=== PATIENT | male | born 1945 | race Caucasian/White ===

== ENCOUNTER 2016-11-21 15:38 | Inpatient (IN) ==
--- NOTE | 2016-11-21 16:03 | Emergency Department Note ---
Disposition Clinical Impression: Renal failure, Hyperglycemia, Hyperkalemia Leukocytosis Qualifiers: Leukocytosis type: unspecified Qualified Code(s): D72.829 - Elevated white blood cell count, unspecified Disposition: Admitted As Inpatient Condition: Fair Time of Disposition: 19:04 General Adult HPI - General Chief complaint: ED Fall Stated complaint: fall Time Seen by Provider: 11/21/16 15:41 Source: patient, EMS Mode of arrival: EMS Limitations: no limitations Nursing Notes Reviewed: Yes Vital Signs Reviewed: Yes - History of Present Illness HPI Narrative: 70-year-old male presents by EMS for fall at home yesterday and inability to walk. He states that he was using a railing and toilet to walk in his bathroom yesterday when his left knee gave out and he fell onto it. He fell around noon yesterday and was on the ground for an hour before EMS came to help him get up. He denies any head injury or loss of consciousness. He states that the pain in his knee has worsened to the point where he cannot walk even with a walker and assistance from his roommates. He denies any other recent illness or medication change. He denies any head injury or loss of consciousness or neck pain. He denies any confusion, fever, headache, blurred vision, cough or shortness of breath, chest pain, edema over his baseline, nausea or vomiting. He does admit to loose stools for the past 24 hours. He denies any recent antibiotic use. He admits to chronic neuropathy which is at its baseline. Pain Scale: 6 - Related Data Home Medications Medication Instructions Recorded Confirmed Aspirin Enteric Coated [Aspirin EC] 81 mg PO DAILY 11/21/16 11/21/16 Atorvastatin Calcium [Lipitor] 20 mg PO HS 11/21/16 11/21/16 Cholecalciferol (D-3) [Vitamin D] 2,000 unit PO DAILY 11/21/16 11/21/16 Gabapentin [Neurontin] 600 mg PO TID 11/21/16 11/21/16 Glimepiride [Amaryl] 4 mg PO BID 11/21/16 11/21/16 Insulin DETEMIR [Levemir] 20 unit SQ HS 11/21/16 11/21/16 Lisinopril [Zestril] 20 mg PO BID 11/21/16 11/21/16 Multivitamin [Multi-Day Vitamins] 1 each PO DAILY 11/21/16 11/21/16 Nystatin POWDER [Nystop] 1 appl TP TID 11/21/16 11/21/16 Omeprazole [PriLOSEC] 20 mg PO DAILY 11/21/16 11/21/16 Oxycodone HCl [Roxicodone 30 MG 30 mg PO Q6HR PRN 11/21/16 11/21/16 Immed Release] Potassium Chloride [K-Tab ER] 20 meq PO DAILY 11/21/16 11/21/16 Sertraline [Zoloft] 100 mg PO DAILY 11/21/16 11/21/16 amLODIPine [Norvasc] 5 mg PO DAILY 11/21/16 11/21/16 hydroCHLOROthiazide 12.5 mg PO DAILY 11/21/16 11/21/16 [Hydrochlorothiazide] Allergies Allergy/AdvReac Type Severity Reaction Status Date / Time morphine Allergy Hallucinati Verified 11/21/16 16:26 ng All systems ED: reviewed and negative except as stated. Past Medical History - Past Medical History Attestation: Yes The following information was validated with the patient. Source: patient Medical history: Reports: diabetes, hyperlipidemia, hypertension, renal disease Psychiatric history: Reports: no psych history - Social History Smoking Status: Never smoker Smokeless Tobacco Status: No Alcohol use: Reports: none Drug use: Reports: none Physical Exam - Head Head exam: atraumatic, normocephalic, normal inspection - Eye Eye exam: Present: normal appearance, PERRL, EOMI - ENT ENT exam: normal exam, normal oropharynx, mucous membranes moist - Neck Neck exam: Present: normal inspection, full ROM, trachea midline - Chest Chest inspection: Present: normal inspection, symmetric chest wall rise - Respiratory Respiratory exam: Clear to auscultation bilaterally without wheezes rales or rhonchi Cardiovascular Cardiovascular exam: Present: regular rate, normal rhythm, normal heart sounds - Abdominal Exam Abdominal exam: Present: soft, Non-Tender. Absent: tenderness, distention, guarding, rebound, rigidity - Extremities Exam Chronic venous stasis changes bilaterally. There is tenderness in the left knee diffusely. Left ankle and hip are normal. - Neurological Exam Neurological exam: Present: alert, oriented X3, CN II-XII intact - Psychiatric Psychiatric exam: Present: normal affect, normal mood - Skin Skin exam: Present: warm, dry, intact. - General Limitations: no limitations General appearance: alert Course - Reevaluation(s) Reevaluation #1: Leukocytosis to 23 noted. The remainder of labs. Patient was undressed and straight catheter urine was obtained. Patient was rolled and back exam is normal with no sacral decubitus ulcer. There is significant candidiasis due to the patient's urinary incontinence, but no definite cellulitis. Patient states that this is at baseline. Time: 17:29 Reevaluation #2: The patient had leukocytosis without any signs of infection on the chest x-ray or urinalysis the obtain fluid from the left knee to send for culture. He states that the knee has been bothering him for the last month or so even prior to the fall. There was a moderate effusion on x-ray seen. A small amount of bloody aspirate was obtained from the joint on the aspiration. This is likely a traumatic effusion. It was sent for culture. To obtain knee aspirate the knee was prepped and draped in sterile condition the skin was anesthetized with 2 mL's of 2% lidocaine without epinephrine. 21-gauge needle was used to access the joint space and a small amount of bloody fluid was obtained. Patient tolerated the procedure well without competitions. Time: 18:44 Reevaluation #3: Awaiting callback from the hospitalist for admission. Patient's creatinine is 2.5. We do not have any old lab evaluation to know if this is new. Initial glucose is 650. Accu-Chek is ordered. Patient is receiving IV fluids and IV insulin. Time: 19:06 - Consultations Consultation #1: Patient accepted by Dr. Botello with hospitalist service. He request insulin drip started prior to admission. This is ordered. Blood sugar improved to 471 at this time. Time: 19:18 Vital Signs Temperature 98.9 F 11/21/16 15:40 Pulse Rate 101 11/21/16 15:40 Respiratory Rate 18 11/21/16 15:40 Blood Pressure 116/53 11/21/16 15:40 O2 Sat by Pulse Oximetry 98 11/21/16 15:40 Temperature 98.8 F 11/21/16 23:28 Pulse Rate 97 11/21/16 23:28 Respiratory Rate 18 11/21/16 23:28 Blood Pressure 114/70 11/21/16 23:28 O2 Sat by Pulse Oximetry 95 11/21/16 23:28 Oxygen Delivery Oxygen Delivery Room Air Medical Decision Making - Lab Data Result diagrams: 11/21/16 16:52 11/21/16 16:52 Lab Results 11/21/16 11/21/16 11/21/16 Range/Units 16:52 16:52 16:52 WBC 22.9 H (4.3-11.1) K/mcL RBC 4.24 (4.19-5.50) M/mcL Hgb 11.8 L (12.9-16.9) g/dL Hct 35.3 L (37.5-50.1) % MCV 83.3 (83.0-100.0) fL MCH 27.8 L (28.0-33.3) pg MCHC 33.4 (31.6-35.5) g/dL RDW 13.9 (11.5-14.5) % Plt Count 187 (140-400) K/mcL MPV 9.3 L (9.4-12.4) fL Immature Gran % 0.7 (0-4) % Seg Neutrophils % 89.9 % Lymphocytes % 2.8 % Monocytes % 6.6 % Eosinophils % 0.0 % Basophils % 0.0 % Neutrophils # 20.6 H (1.6-8.9) K/mcL Lymphocytes # 0.7 (0.6-4.6) K/mcL Monocytes # 1.5 H (0.0-1.3) K/mcL Eosinophils # 0.0 (0.0-0.6) K/mcL Basophils # 0.0 (0.0-0.2) K/mcL VBG pH (7.32-7.42) pH Units VBG pCO2 (41-51) mmHg VBG pO2 (25-40) mmHg VBG HCO3 (21-27) mEq/L Sodium (136-145) mEq/L Potassium (3.5-4.5) mEq/L Chloride (98-109) mEq/L Carbon Dioxide (19-29) mEq/L BUN (8-26) mg/dL Creatinine (0.72-1.25) mg/dL Est GFR ( Amer) (> 60) Est GFR (Non-Af Amer) (> 60) BUN/Creatinine Ratio (6-26) Glucose (70-99) mg/dL Calculated Osmolality (280-300) Calcium (8.6-10.8) mg/dL Creatine Kinase (30-200) Units/L Troponin I 0.01 (0-0.03) ng/mL B-Natriuretic Peptide 57 (0-100) pg/mL Beta-Hydroxybutyric Acd (0.02-0.27) mmol/L Urine Color (Yellow) Urine Clarity (Clear) Urine pH (5.0-8.0) pH Units Ur Specific Spencer (1.010-1.025) Urine Protein (Neg-Trace) mg/dL Urine Glucose (UA) (Normal) mg/dL Urine Ketones (Negative) mg/dL Urine Blood (Negative) Urine Nitrite (Negative) Urine Bilirubin (Negative) Urine Urobilinogen (Normal) mg/dL Ur Leukocyte Esterase (Negative) Urine Microscopic RBC (0-3) per hpf Urine Microscopic WBC (0-3) per hpf Ur Squamous Epith Cells (None-Few) per lpf Urine Bacteria (None-Few) per hpf Hyaline Casts (None-Few) per lpf Urine Yeast (None Seen) per hpf Ur Culture Indicated? (NO) 11/21/16 11/21/16 11/21/16 Range/Units 16:52 16:52 17:30 WBC (4.3-11.1) K/mcL RBC (4.19-5.50) M/mcL Hgb (12.9-16.9) g/dL Hct (37.5-50.1) % MCV (83.0-100.0) fL MCH (28.0-33.3) pg MCHC (31.6-35.5) g/dL RDW (11.5-14.5) % Plt Count (140-400) K/mcL MPV (9.4-12.4) fL Immature Gran % (0-4) % Seg Neutrophils % % Lymphocytes % % Monocytes % % Eosinophils % % Basophils % % Neutrophils # (1.6-8.9) K/mcL Lymphocytes # (0.6-4.6) K/mcL Monocytes # (0.0-1.3) K/mcL Eosinophils # (0.0-0.6) K/mcL Basophils # (0.0-0.2) K/mcL VBG pH (7.32-7.42) pH Units VBG pCO2 (41-51) mmHg VBG pO2 (25-40) mmHg VBG HCO3 (21-27) mEq/L Sodium 128 L (136-145) mEq/L Potassium 5.5 H (3.5-4.5) mEq/L Chloride 95 L (98-109) mEq/L Carbon Dioxide 19 (19-29) mEq/L BUN 51 H (8-26) mg/dL Creatinine 2.48 H (0.72-1.25) mg/dL Est GFR ( Amer) 31 L (> 60) Est GFR (Non-Af Amer) 26 L (> 60) BUN/Creatinine Ratio 21 (6-26) Glucose 647 H* (70-99) mg/dL Calculated Osmolality 310 H (280-300) Calcium 9.1 (8.6-10.8) mg/dL Creatine Kinase 685 H (30-200) Units/L Troponin I (0-0.03) ng/mL B-Natriuretic Peptide (0-100) pg/mL Beta-Hydroxybutyric Acd > 2.00 H (0.02-0.27) mmol/L Urine Color Yellow (Yellow) Urine Clarity Cloudy A (Clear) Urine pH 5.0 (5.0-8.0) pH Units Ur Specific Spencer 1.026 H (1.010-1.025) Urine Protein 30 H (Neg-Trace) mg/dL Urine Glucose (UA) >=1000 H (Normal) mg/dL Urine Ketones 15 H (Negative) mg/dL Urine Blood Large H (Negative) Urine Nitrite Negative (Negative) Urine Bilirubin Negative (Negative) Urine Urobilinogen Normal (Normal) mg/dL Ur Leukocyte Esterase Trace H (Negative) Urine Microscopic RBC 5-15 H (0-3) per hpf Urine Microscopic WBC 5-15 H (0-3) per hpf Ur Squamous Epith Cells Many H (None-Few) per lpf Urine Bacteria None Seen (None-Few) per hpf Hyaline Casts Few (None-Few) per lpf Urine Yeast Few H (None Seen) per hpf Ur Culture Indicated? YES A (NO) 11/21/16 Range/Units 18:03 WBC (4.3-11.1) K/mcL RBC (4.19-5.50) M/mcL Hgb (12.9-16.9) g/dL Hct (37.5-50.1) % MCV (83.0-100.0) fL MCH (28.0-33.3) pg MCHC (31.6-35.5) g/dL RDW (11.5-14.5) % Plt Count (140-400) K/mcL MPV (9.4-12.4) fL Immature Gran % (0-4) % Seg Neutrophils % % Lymphocytes % % Monocytes % % Eosinophils % % Basophils % % Neutrophils # (1.6-8.9) K/mcL Lymphocytes # (0.6-4.6) K/mcL Monocytes # (0.0-1.3) K/mcL Eosinophils # (0.0-0.6) K/mcL Basophils # (0.0-0.2) K/mcL VBG pH 7.37 (7.32-7.42) pH Units VBG pCO2 47 (41-51) mmHg VBG pO2 29 (25-40) mmHg VBG HCO3 27.2 H (21-27) mEq/L Sodium (136-145) mEq/L Potassium (3.5-4.5) mEq/L Chloride (98-109) mEq/L Carbon Dioxide (19-29) mEq/L BUN (8-26) mg/dL Creatinine (0.72-1.25) mg/dL Est GFR ( Amer) (> 60) Est GFR (Non-Af Amer) (> 60) BUN/Creatinine Ratio (6-26) Glucose (70-99) mg/dL Calculated Osmolality (280-300) Calcium (8.6-10.8) mg/dL Creatine Kinase (30-200) Units/L Troponin I (0-0.03) ng/mL B-Natriuretic Peptide (0-100) pg/mL Beta-Hydroxybutyric Acd (0.02-0.27) mmol/L Urine Color (Yellow) Urine Clarity (Clear) Urine pH (5.0-8.0) pH Units Ur Specific Spencer (1.010-1.025) Urine Protein (Neg-Trace) mg/dL Urine Glucose (UA) (Normal) mg/dL Urine Ketones (Negative) mg/dL Urine Blood (Negative) Urine Nitrite (Negative) Urine Bilirubin (Negative) Urine Urobilinogen (Normal) mg/dL Ur Leukocyte Esterase (Negative) Urine Microscopic RBC (0-3) per hpf Urine Microscopic WBC (0-3) per hpf Ur Squamous Epith Cells (None-Few) per lpf Urine Bacteria (None-Few) per hpf Hyaline Casts (None-Few) per lpf Urine Yeast (None Seen) per hpf Ur Culture Indicated? (NO) - EKG Data EKG #1 EKG attestation: Yes I reviewed and interpreted this EKG. EKG results narrative: EKG shows normal sinus rhythm at 97 with normal axis and intervals. No ST elevation or depression. No pathologic Q waves. This is a normal EKG. No old EKG available this time. Attestation Statement - Attestation Attestation: I, Jarrell Cadet, examined this patient and my medical decision-making was reviewed with the [employer] MACHINIST/PA/Advanced Practice Nurse/Resident Physician. I agree with the documented findings, disposition and treatment plan as described except to the extent set forth below. 70-year-old male presents after a fall at home. Patient states he fell yesterday after ambulating out of the bathroom. Denies hitting his head or having loss of consciousness. He states his leg gave out on him, causing him to fall on the left knee. Patient has a history of chronic left knee pain which has been exacerbated after the injury. Patient has been unable to ambulate since that time. Patient emphatically denies hitting his head, he does not have abrasions or other evidence of injury to the head. Laboratory evaluation the patient has a significantly elevated glucose level and has not been taking his diabetic medications as prescribed. He has an anion gap of 14 with elevated ketones in his blood. Patient also has an elevation of his creatinine we do not have a previous one to compare to. Aspiration, performed by the resident after verbal consent obtained, of the left knee will be sent for culture. Patient will be admitted to the hospital for further evaluation of his left knee pain as well as his hyperglycemia and acute renal failure.
[2016-11-21 17:03] LABS: Hematocrit 35.3 % (37.5-50.1); Hemoglobin 11.8 g/dL (12.9-16.9); Immature Granulocytes % 0.7 % (0-4); Lymphocytes # 0.7 K/mcL (0.6-4.6); Lymphocytes % 2.8 %; Mean Corpuscular HGB Conc 33.4 g/dL (31.6-35.5); Mean Corpuscular Hemoglobin 27.8 pg (28.0-33.3); Mean Corpuscular Volume 83.3 fL (83.0-100.0); Mean Platelet Volume 9.3 fL (9.4-12.4); Monocytes # 1.5 K/mcL (0.0-1.3); Monocytes % 6.6 %; Neutrophils # 20.6 K/mcL (1.6-8.9); Platelet Count 187 K/mcL (140-400); Red Blood Count 4.24 M/mcL (4.19-5.50); Red Cell Distribution Width 13.9 % (11.5-14.5); Segmented Neutrophils % 89.9 %
[2016-11-21 17:18] LABS: Calcium 9.1 mg/dL (8.6-10.8); Potassium 5.5 mEq/L (3.5-4.5)
[2016-11-21] MEDS ORDERED: 0.9 % Sodium Chloride 1,000 ML IVC ONE ×2 (17:30→19:04)
[2016-11-21 17:36] LABS: Bilirubin,Urine Negative (Negative); Blood,Urine Large (Negative); Clarity,Urine Cloudy (Clear); Color,Urine Yellow (Yellow); Glucose,Urine (UA) >=1000 mg/dL (Normal); Ketones,Urine 15 mg/dL (Negative); Leukocyte Esterase,Urine Trace (Negative); Nitrite,Urine Negative (Negative); Protein,Urine 30 mg/dL (Neg-Trace); Specific Gravity,Urine 1.026 (1.010-1.025); Urobilinogen,Urine Normal (Normal)
[2016-11-21 17:38] LABS: Bacteria,Urine None Seen per hpf (None-Few); Hyaline Casts,Urine Few per lpf (None-Few); Squamous Epithelial Cell,Urine Many per lpf (None-Few)
[2016-11-21 18:15] LABS: Yeast,Urine Few per hpf (None Seen)
[2016-11-21] MEDS ORDERED: Lidocaine -MPF 2% 5 ML VIAL ONE (18:20)
[2016-11-21] MEDS ORDERED: Lidocaine -MPF 2% 5 ML VIAL INFILT ONE (18:44)
[2016-11-21] MEDS ORDERED: Insulin Human Regular 10 UNIT in 0.9 % Sodium Chloride 10 ML IV ONE (18:46)
[2016-11-21 19:05] LABS: VBG HCO3 27.2 mEq/L (21-27); VBG PH 7.37 pH Units (7.32-7.42)
[2016-11-21] MEDS ORDERED: *HR* Dextrose 50 % in Water (Syg) 50 ML SYRINGE IVP PRN (19:15)
[2016-11-21] MEDS ORDERED: Insulin Human Regular 100 UNIT in 0.9 % Sodium Chloride 100 ML IVC SCH (19:15)
[2016-11-21] MEDS ORDERED: 0.9 % Sodium Chloride 1,000 ML ONE (21:28)
--- NOTE | 2016-11-21 23:56 | Internal Med History&Physical ---
Date of Encounter: 11/22/16 Time of Encounter: 23:56 Assessment and Plan (1) Hyperosmolality syndrome Current visit: Yes Status: Acute Patient's blood sugar on presentation was 647. He has history of type 2 diabetes sodium was 128 potassium 5.5 anion gap 14 . HHS is secondary to unknown infectious source leukocytosis 23 His blood gas pH 7.37. Beta hydroxinate 2. Patient does not appear to be acidotic patient was given 10 units of insulin IV and started on insulin drip culture has come down to 147. We will continue to monitor blood sugars every hour and titrate. 2 we will continue to monitor electrolytes every 4 hours 3 continue IV fluids 4 monitor intake and output (2) Leukocytosis Current visit: Yes Status: Acute 1 WBC 22.9 unsure of infectious source patient, urine and CXR clear has been experiencing some loose stool will obtain stool sample 2 monitor CBC 3 joint aspirate sent for culture awaiting results Qualifiers: Leukocytosis type: unspecified Qualified Code(s): D72.829 - Elevated white blood cell count, unspecified (3) Acute on chronic kidney failure Current visit: Yes Status: Acute Patient's creatinine 2. 4 AM unsure of what the baseline is. Patient appears to have history C KD stage III. We will continue to monitor creatinine 2 continue IV fluids 3 monitor intake and output daily weight (4) Hyperkalemia Current visit: Yes Status: Acute 1 potassium is 5.5- continue with IV fluids and insulin monitor chemistry every 4 hours 2 . Cardiac Monitoring (5) DVT prophylaxis Current visit: Yes Status: Acute 1 heparin Internal Medicine - H&P: HPI Chief complaint: Knee pain Admitted From: Emergency Dept Plans for Post Hospital Care: Home History of present illness: Mr. Arceo is a 70 year old male has history of COPD diabetes hypertension DJD OA. Patient had a fall at home yesterday when he was attempting to go to his bathroom. States his left knee gave out and he fell onto it. He fell around noon yesterday was on the ground for about an hour before EMS came to,. She denied any head injury or loss of consciousness. He states that today the pain in his knee is worse to the point that he is unable to walk with a walker or assistance. He states that he has been his normal state of health prior to this incident. He does admit to loose stools which she states has been going on for approximately one month. He denies any fevers nausea vomiting abdominal pain chest pain or shortness of breath. Denies any recent antibiotic use. Patient was brought to the ER for evaluation. According to the records lab work did reveal some leukocytosis with white count of 23. He also had elevated blood sugar at 647 creatinine was 2.4 potassium 5.5 bicarbonate was 19 sodium was 128 anion gap is 14. Chest x-ray with no acute process urinalysis no UTI. Left knee was x-rayed which revealed a moderate effusion , knee joint was aspirated and fluid was sent for culture He has been admitted for further workup and evaluation. Presently patient complains of knee pain besides any chest pain or short of breath. His lung sounds are clear heart sounds are regular S1 and S2 with no rubs, murmurs noted. Left knee is tender to touch pedal pulses present bilaterally brisk capillary refill. Recheck of his blood sugar was 147. He has hemodynamics stable at this time. I reviewed this case with who agrees with plan Past Med Surg Social Fam HX - Past Medical History Medical history: diabetes, hyperlipidemia, hypertension, renal disease Psychiatric history: no psych history - Social History Smoking Status: Never smoker Smokeless Tobacco Status: No Alcohol use: none Drug use: none - Family History Mother Living Status: Hx Family Endocrine Disorder: Yes (diabetes) Internal Medicine - H&P: Meds Aspirin Enteric Coated [Aspirin EC] 81 mg PO DAILY 11/21/16 [History] Atorvastatin Calcium [Lipitor] 20 mg PO HS 11/21/16 [History] Cholecalciferol (D-3) [Vitamin D] 2,000 unit PO DAILY 11/21/16 [History] Gabapentin [Neurontin] 600 mg PO TID 11/21/16 [History] Glimepiride [Amaryl] 4 mg PO BID 11/21/16 [History] Insulin DETEMIR [Levemir] 20 unit SQ HS 11/21/16 [History] Lisinopril [Zestril] 20 mg PO BID 11/21/16 [History] Multivitamin [Multi-Day Vitamins] 1 each PO DAILY 11/21/16 [History] Nystatin POWDER [Nystop] 1 appl TP TID 11/21/16 [History] Omeprazole [PriLOSEC] 20 mg PO DAILY 11/21/16 [History] Oxycodone HCl [Roxicodone 30 MG Immed Release] 30 mg PO Q6HR PRN 11/21/16 [ History] Potassium Chloride [K-Tab ER] 20 meq PO DAILY 11/21/16 [History] Sertraline [Zoloft] 100 mg PO DAILY 11/21/16 [History] amLODIPine [Norvasc] 5 mg PO DAILY 11/21/16 [History] hydroCHLOROthiazide [Hydrochlorothiazide] 12.5 mg PO DAILY 11/21/16 [History] Allergies morphine Allergy (Verified 11/21/16 16:26) Hallucinating All Systems PM: A 10-system review of systems was performed and is negative for pertinent findings except as documented above in the HPI. - Constitutional Constitutional: falls, no chills, no fever(s), no night sweats - EENT Eyes: no change in vision, no discharge, no pain, no photophobia Nose, mouth and throat: no dysphagia, no nasal discharge, no neck pain, no sore throat - Cardiovascular Cardiovascular ROS IM: no chest pain, no diaphoresis, no dyspnea, no lightheadedness, no palpitations, no syncope - Respiratory Respiratory: no cough, no dyspnea, no wheezing, no excessive phlegm production - Gastrointestinal Gastrointestinal: no abdominal pain, no diarrhea, no hematemesis, no hematochezia, no melena, no nausea, no vomiting - Musculoskeletal Musculoskeletal ROS IM: arthralgias, joint swelling - Integumentary Integumentary IM: no rash, no unusual bruising - Neurological Neurological ROS: no confusion, no convulsions, no focal weakness, no numbness, no tingling, no tremor(s) - Hematologic/Lymphatic Hematologic/Lymphatic: no easy bruising - Constitutional Vitals: Temp Pulse Resp BP Pulse Ox 98.8 F 97 18 114/70 95 11/21/16 23:28 11/21/16 23:28 11/21/16 23:28 11/21/16 23:28 11/21/16 23:28 General appearance: Present: A&O X 3, answers questions appropriately - Head Head exam: Present: atraumatic, normocephalic - Eye Eye exam: Present: PERRL, conjuntiva pink, sclera anicteric Pupils: Present: PERRL - Neck Neck exam general surgery: Present: supple, trachea midline. Absent: lymphadenopathy - Respiratory Respiratory exam: Present: CTAB. Absent: accessory muscle use, rales, rhonchi, wheezes - Cardiovascular Cardiovascular exam: Present: RRR, +S1, +S2. Absent: diastolic murmur, gallop, rubs, systolic murmur - GI/Abdominal GI/Abdominal exam: Present: normal bowel sounds, soft, no peritoneal signs. Absent: distended, tenderness - Extremities Exam Extremities exam: Present: joint swelling, normal capillary refill, warm, radial pulses palpable and symetrical. Absent: calf tenderness, cyanotic, pedal edema - Neurological Exam Neurological exam: Present: CN II-XII intact, oriented X3, no focal deficits. Absent: pronater drift, facial droop, speech deficit - Skin Skin exam: Present: dry, intact Internal Med - H&P Results - Labs CBC & Chem 7: 11/21/16 16:52 11/22/16 00:48 - EKG Data EKG shows normal: sinus rhythm - Diagnostic Studies Other Images Additional comments: Chest X-Ray 11/21/16 15:41 IMPRESSION: No acute process. D/ / Tomas Treadwell MD / Tomas Treadwell MD Interpreting Provider: Tomas Treadwell MD Knee X-Ray 11/21/16 15:43 IMPRESSION: 1. No evidence of acute fracture or dislocation in the left knee, however evaluation is somewhat compromised due to severe osteopenia. 2. Small to moderate size suprapatellar knee joint effusion. D/ / Naheed Hernandez MD / Naheed Hernandez MD Interpreting Provider: Naheed Hernandez MD Pelvis X-Ray 11/21/16 15:57 IMPRESSION: No acute osseous abnormality. If there is continued clinical concern for occult hip fracture, follow-up with MRI may be helpful for further evaluation. D/ / Steph Street MD / Steph Street MD Interpreting Provider: Steph Street MD
[2016-11-22] MEDS: *HR* OxyCODONE Immed Rel 15 MG TABLET PO PRN ×3 (00:26→14:28)
[2016-11-22] MEDS: 0.9 % Sodium Chloride 1,000 ML IVC SCH ×5 (00:27→23:25)
[2016-11-22 01:14] LABS: Potassium 3.7 mEq/L (3.5-4.5)
[2016-11-22] MEDS ORDERED: *HR* Dextrose 50 % in Water (Syg) 50 ML SYRINGE IVP PRN (02:47)
[2016-11-22] MEDS ORDERED: D5% in Water 1,000 ML IVC PRN (02:47)
[2016-11-22] MEDS ORDERED: Dextrose Gel 15 GM PO PRN ×2 (02:47)
[2016-11-22] MEDS: Nystatin POWDER 30 GM BOTTLE TP SCH ×4 (02:49→22:56)
[2016-11-22 04:25] LABS: Basophils % 0.2 %; Hematocrit 35.3 % (37.5-50.1); Hemoglobin 11.8 g/dL (12.9-16.9); Immature Granulocytes % 0.7 % (0-4); Lymphocytes # 0.8 K/mcL (0.6-4.6); Lymphocytes % 3.3 %; Mean Corpuscular HGB Conc 33.4 g/dL (31.6-35.5); Mean Corpuscular Hemoglobin 28.2 pg (28.0-33.3); Mean Corpuscular Volume 84.2 fL (83.0-100.0); Mean Platelet Volume 9.3 fL (9.4-12.4); Monocytes # 1.8 K/mcL (0.0-1.3); Monocytes % 7.6 %; Platelet Count 190 K/mcL (140-400); Red Blood Count 4.19 M/mcL (4.19-5.50); Segmented Neutrophils % 88.2 %
[2016-11-22 04:30] LABS: Basophils # 0.1 K/mcL (0.0-0.2); Neutrophils # 21.3 K/mcL (1.6-8.9)
[2016-11-22 04:45] LABS: Calcium 8.9 mg/dL (8.6-10.8); Magnesium 1.4 mg/dL (1.6-2.6); Potassium 4.2 mEq/L (3.5-4.5)
[2016-11-22 04:54] LABS: Hemoglobin A1C 12.2 %; Hypersegmented Neutrophils Present (Not Present); Platelet Estimate Normal (Normal); Toxic Granulation Present (Not Present)
[2016-11-22] MEDS: *HR* Heparin 5,000 UNIT/ML VIAL SQ SCH ×2 (04:54→17:41)
[2016-11-22] MEDS ORDERED: 0.9 % Sodium Chloride 500 ML IVC ONE ×2 (08:07→20:52)
[2016-11-22] MEDS: Multivit/Ca/Min/Fe/FA 1 TAB TABLET PO SCH (08:50)
[2016-11-22] MEDS: Gabapentin 300 MG CAPSULE PO SCH ×2 (08:50→21:34)
[2016-11-22] MEDS: Cholecalciferol (D-3) 1,000 UNIT TABLET PO SCH (08:50)
[2016-11-22] MEDS: Insulin LISPRO 300 UNITS/3 ML VIAL SQ SCH ×6 (08:50→19:48)
[2016-11-22] MEDS: Aspirin Enteric Coated 81 MG Tablet PO SCH (08:50)
--- NOTE | 2016-11-22 10:20 | Internal Med Progress Note ---
Date of Encounter: 11/22/16 Time of Encounter: 09:50 - Assessment and plan (1) Hyperosmolar non-ketotic state in patient with type 2 diabetes mellitus Current Visit: Yes Status: Acute Assessment and plan: Patient who presented with FS >600 and A1C of 12.2 FS is improving with current insulin regimen Adjusted regimen to include basal, prandial and supplemental scale insulin (2) SIRS (systemic inflammatory response syndrome) Current Visit: Yes Status: Acute Assessment and plan: Patient with tachycardia and leukocytosis Synivial fluid with no current growth Urine is dirty, awaiting culture I suspect he may have a UTI I have started on 2g of ceftriaxone Continue antibiotics till final cultures His BP is normal His lactic acid on presentation is normal (3) Hyperkalemia Current Visit: Yes Status: Resolved Assessment and plan: Secondary to NIKKO has resolved (4) Acute on chronic kidney failure Current Visit: Yes Status: Acute Assessment and plan: Secondary to severe dehydration possibly from HHS Patient also with suspected UTI Obtain renal USS Continue IVF hydration Avoid nephrotoxins Patient was on HCTZ and Lisinopril at home Continue to hold HCTZ and Lisinopril Continue to monitor renal function (5) DVT prophylaxis Current Visit: Yes Status: Acute Assessment and plan: Heparin SQ (6) Morbid obesity with BMI of 45.0-49.9, adult Current Visit: Yes Status: Chronic (7) CKD (chronic kidney disease), stage III Current Visit: Yes Status: Chronic Assessment and plan: Patient stated Baseline unknown Mgt as in NIKKO (8) Fall Current Visit: Yes Status: Acute Assessment and plan: Patient with hx of mechanical fall very deconditioned and could not sit up for exam PT/OT eval Qualifiers: Encounter type: initial encounter Qualified Code(s): W19.XXXA - Unspecified fall, initial encounter - Subjective Interval history: Seen and evaluated at bedside patient with CKD III, Morbid Obesity, Uncontrolled complicated DM, HTN, COPD, DJD He denies new complains His FS is improving with current insulin regimen, he is receiving IVF for NIKKO on CKD, home doses of Lisinopril and HCTZ have been held Patient reports having a abdomen CT scan done 10/2016 chart review reveals bilateral adenoma, no mention of renal abnormality Will follow USS Nephrology will be consulted of NIKKO does not improve - Constitutional Vitals: Temp Pulse Resp BP Pulse Ox 98.0 F 85 15 102/63 94 11/22/16 06:57 11/22/16 06:57 11/22/16 06:57 11/22/16 06:57 11/22/16 06:57 General appearance: Present: A&O X 3, morbidly obese, pleasant, no acute distress, answers questions appropriately - Head Head exam: Present: atraumatic, normocephalic - Eye Eye exam: Present: PERRL, conjuntiva pink, sclera anicteric Pupils: Present: PERRL - Neck Neck exam general surgery: Present: supple, trachea midline. Absent: lymphadenopathy - Respiratory Respiratory exam: Present: CTAB. Absent: accessory muscle use, rales, rhonchi, wheezes - Cardiovascular Cardiovascular exam: Present: RRR, +S1, +S2. Absent: diastolic murmur, gallop, rubs, systolic murmur - GI/Abdominal GI/Abdominal exam: Present: normal bowel sounds, soft, no peritoneal signs. Absent: distended, tenderness - Extremities Exam Extremities exam: Present: warm, radial pulses palpable and symetrical. Absent : calf tenderness, cyanotic, pedal edema Additional comments: Chronic venous stasis changes, no active infection, no pedal edema - Neurological Exam Neurological exam: Present: alert, CN II-XII intact, oriented X3, no focal deficits. Absent: pronater drift, facial droop, speech deficit - Skin Skin exam: Present: dry Internal Medicine: Result - Labs CBC & Chem 7: 11/22/16 04:12 11/22/16 04:12 Labs: Short CBC 11/22/16 Range/Units 04:12 WBC 24.1 H (4.3-11.1) K/mcL Hgb 11.8 L (12.9-16.9) g/dL Hct 35.3 L (37.5-50.1) % Plt Count 190 (140-400) K/mcL Neutrophils # 21.3 H (1.6-8.9) K/mcL BMP 11/22/16 04:12 Sodium 138 Potassium 4.2 Chloride 104 Carbon Dioxide 23 BUN 47 H Creatinine 1.90 H Glucose 159 H Calcium 8.9 Consult Discharge Plan - Plan Referrals: NO,PCP [Primary Care Provider] -
--- NOTE | 2016-11-22 14:46 | Electrocardiograph Report ---
[address] [address] Test Date: 2016-11-21 Pat Name: Ashvin Arceo Department: 102 Room: 3B Gender: M Glove Stitcher: : 1945 Requested By: Tommie Castillo Order Number: [id number] Reading MD: Bo Guillermo MD Measurements Intervals [place] Rate: 97 P: 52 ID: [id number] QRS: 51 QRSD: 98 T: 64 QT: 335 QTc: 389 Interpretive Statements SINUS RHYTHM Electronically Signed On 11-22-2016 14:44:47 EDT by Bo Guillermo MD
[2016-11-22] MEDS: Naloxone 0.4 MG/ML INJ IVP PRN ×4 (18:38→23:58)
[2016-11-22] MEDS ORDERED: Naloxone 0.4 MG/ML INJ IVP ONE (18:47)
[2016-11-22 19:00] LABS: ABG Base Excess -7.2 mEq/L (-2.0 to 3.0); ABG HCO3 19.7 mEQ/L (21-27); ABG Oxygen Saturation 88 % (95-98); ABG PCO2 44 mmHg (35-45); ABG PH 7.26 pH Units (7.32-7.45); ABG PO2 64 mmHg (85-104); ABG TCO2 21.1 mEq/L (20-26); Blood Gas FiO2 36 %
--- NOTE | 2016-11-22 19:12 | Event Note ---
Date of Encounter: 11/22/16 Time of Encounter: 19:06 A rapid response was called at 6:40 PM. On arrival the patient was unresponsive to sternal rub. Vital signs oxygen saturation 88-92% on 2 L by nasal cannula blood pressure 95/56. Breathing nonlabored with upper airway sounds. Heart regular S1-S2. Lungs with diminished breath sounds. Creatinine was 1.9 decreased from admission of 2.4. Patient had received 20 mg of Roxicodone 2 hours prior. Plan I suspect opiate overdose in the context of acute and chronic renal failure and decreased opiate clearance. I have ordered and we administered 0.8 mg of Narcan with good response. Patient arose and was able to answer questions appropriately. I ordered ABG. I will obtain stat chest x-ray to evaluate for possible aspiration. We initially placed the patient on nonrebreather and after administration of Narcan I was able to titrate him back down to nasal cannula. I will discuss the plan of care and pending studies with the tool inspector physician.
[2016-11-22 19:59] LABS: Basophils % 0.1 %; Hematocrit 35.9 % (37.5-50.1); Hemoglobin 11.7 g/dL (12.9-16.9); Immature Granulocytes % 1.2 % (0-4); Lymphocytes # 0.5 K/mcL (0.6-4.6); Lymphocytes % 2.1 %; Mean Corpuscular HGB Conc 32.6 g/dL (31.6-35.5); Mean Corpuscular Hemoglobin 27.8 pg (28.0-33.3); Mean Corpuscular Volume 85.3 fL (83.0-100.0); Mean Platelet Volume 9.3 fL (9.4-12.4); Monocytes # 1.4 K/mcL (0.0-1.3); Monocytes % 6.4 %; Neutrophils # 20.2 K/mcL (1.6-8.9); Platelet Count 210 K/mcL (140-400); Red Blood Count 4.21 M/mcL (4.19-5.50); Red Cell Distribution Width 14.3 % (11.5-14.5); Segmented Neutrophils % 90.2 %
[2016-11-22 20:17] LABS: Calcium 8.6 mg/dL (8.6-10.8); Magnesium 1.4 mg/dL (1.6-2.6)
[2016-11-22] MEDS ORDERED: Magnesium Sulfate 2 GM in D5% in Water 100 ML IVPB ONE (20:32)
[2016-11-22] MEDS ORDERED: Insulin DETEMIR 100 UNIT/ML X5UNITS SQ SCH (21:00)
[2016-11-22] MEDS ORDERED: Insulin LISPRO 300 UNITS/3 ML VIAL SQ SCH (21:00)
[2016-11-22] MEDS ORDERED: Vancomycin 2,000 MG in D5% in Water 250 ML IVPB SCH (21:00)
[2016-11-22 21:34] LABS: Acinetobacter baumannii by PCR Not Detected (Not Detect); Candida albicans by PCR Not Detected (Not Detect); Candida glabrata by PCR Not Detected (Not Detect); Candida krusei by PCR Not Detected (Not Detect); Candida parapsilosis by PCR Not Detected (Not Detect); Candida tropicalis by PCR Not Detected (Not Detect); Enterococcus by PCR Not Detected (Not Detect); Escherichia coli by PCR Not Detected (Not Detect); Klebsiella oxytoca by PCR Not Detected (Not Detect); Klebsiella pneumoniae by PCR Not Detected (Not Detect); Pseudomonas aeruginosa by PCR Not Detected (Not Detect); Serratia marcescens by PCR Not Detected (Not Detect); Staphylococcus aureus by PCR ***DETECTED*** (Not Detect); Streptococcus agalactiae(B)PCR Not Detected (Not Detect); Streptococcus by PCR Not Detected (Not Detect); Streptococcus pneumoniae PCR Not Detected (Not Detect); Streptococcus pyogenes (A) PCR Not Detected (Not Detect); mecA Methicillin-Resist Gene ***DETECTED*** (Not Detect)
[2016-11-22] MEDS: Piperacillin/Tazobactam 3.375 GM in D5% in Water (Mini-Bag+) 100 ML IVPB SCH (21:36)
[2016-11-22] MEDS ORDERED: Vancomycin 2,000 MG in D5% in Water 500 ML IVPB SCH (22:00)
[2016-11-22] MEDS ORDERED: 0.9 % Sodium Chloride 1,000 ML IVC ONE ×2 (23:05→23:06)
--- NOTE | 2016-11-22 23:05 | Event Note ---
Date of Encounter: 11/22/16 Time of Encounter: 22:00 On-call Hospitalist note: Hypotension I was informed by the day physician Dr Velarde, that the pt was not very responsive in the evening and naloxone woke him up. I have evaluated the pt - He was somnulent but responding to verbal stimuli. He was noted to be hypotensive, with partial response to IV fluid bolus. Pt has leucocytosis and meets criteria for sepsis - started on broad spectrum antibiotics - vancomycin and zosyn. Pt remained hypotensive - hence transferred to ICU, with a plan to consider central line / vasopressors. His blood cultures came back positive for MRSA - continue vancomycin. His blood pressure is stabilized after his transfer to the ICU, with IV fluids and naloxone - and did not require central line or vasopressors. His synovial fluid cultures were positive for MRSA - on the morning of 11/23 - I talked to the Orthopedic surgeon Dr Crawford, who kindly agreed to see the pt. Signed out to the morning team.
[2016-11-23] MEDS: Piperacillin/Tazobactam 3.375 GM in D5% in Water (Mini-Bag+) 100 ML IVPB SCH (05:09)
[2016-11-23] MEDS: *HR* Heparin 5,000 UNIT/ML VIAL SQ SCH ×2 (05:10→17:41)
[2016-11-23 05:38] LABS: Basophils % 0.1 %; Hematocrit 35.6 % (37.5-50.1); Hemoglobin 11.4 g/dL (12.9-16.9); Immature Granulocytes % 1.2 % (0-4); Lymphocytes % 4.9 %; Mean Corpuscular Hemoglobin 27.6 pg (28.0-33.3); Mean Corpuscular Volume 86.2 fL (83.0-100.0); Mean Platelet Volume 9.4 fL (9.4-12.4); Monocytes # 1.4 K/mcL (0.0-1.3); Monocytes % 6.7 %; Neutrophils # 17.8 K/mcL (1.6-8.9); Platelet Count 193 K/mcL (140-400); Red Blood Count 4.13 M/mcL (4.19-5.50); Red Cell Distribution Width 14.5 % (11.5-14.5); Segmented Neutrophils % 87.1 %
[2016-11-23 05:49] LABS: Calcium 8.1 mg/dL (8.6-10.8); Potassium 4.8 mEq/L (3.5-4.5)
[2016-11-23] MEDS: Insulin LISPRO 300 UNITS/3 ML VIAL SQ SCH ×7 (07:42→19:50)
[2016-11-23] MEDS: Gabapentin 300 MG CAPSULE PO SCH ×2 (08:04→19:47)
[2016-11-23] MEDS: Aspirin Enteric Coated 81 MG Tablet PO SCH (08:04)
[2016-11-23] MEDS: Multivit/Ca/Min/Fe/FA 1 TAB TABLET PO SCH (08:05)
[2016-11-23] MEDS: Cholecalciferol (D-3) 1,000 UNIT TABLET PO SCH (08:05)
--- NOTE | 2016-11-23 08:47 | Internal Med Progress Note ---
Date of Encounter: 11/23/16 Time of Encounter: 10:00 - Assessment and plan (1) Sepsis Current Visit: Yes Status: Acute Assessment and plan: Patient presented with fall Work up on admission revealed FS >600, Leukocytosis, tachycardia, NIKKO, normal BP He decompensated to low blood pressures, responding to IVF hydration Lactatre was normal UA was dirty and he received 2g of ceftriaxone However, blood, Urine and Synovial fluid from left knee growing MRSA Patient remains afebrile , he is not hypothermic He has been started on Vancomycin-to be dosed by pharmacy He was also started on Zosyn empirically, i have discontinued this due to culture reports all growing MRSA Repeat blood culture scheduled for 11/24 a.m-2 sets Patient not a know IVDU ECHO ordered to r/o vegetations Infectious disease has been consulted for additional recommendations The source of patient's sepsis at this time could be his L knee joint, urine, or endocarditis High risk patient due to severe sepsis, NIKKO, Vancomycin Qualifiers: Sepsis type: methicillin resistant Staphylococcus aureus Qualified Code(s) : A41.02 - Sepsis due to Methicillin resistant Staphylococcus aureus (2) Bacteremia due to Gram-positive bacteria Current Visit: Yes Status: Acute Assessment and plan: MRSA bacteremia Management as above (3) Septic arthritis Current Visit: Yes Status: Acute Assessment and plan: As in sepsis Orthopedic for washout and arthroscopy today Continue IV antibiotics Qualifiers: Septic arthritis location: knee Septic arthritis organism: staphylococcal Laterality: left Qualified Code(s): M00.062 - Staphylococcal arthritis, left knee (4) Hyperosmolar non-ketotic state in patient with type 2 diabetes mellitus Current Visit: Yes Status: Acute Assessment and plan: Patient who presented with FS >600 and A1C of 12.2 FS is improving with current insulin regimen Adjusted regimen to include basal, prandial and supplemental scale insulin Continue to monitor FS Goal FS is 140-180 (5) SIRS (systemic inflammatory response syndrome) Current Visit: Yes Status: Acute Assessment and plan: As in sepsis (6) Hyperkalemia Current Visit: Yes Status: Resolved Assessment and plan: Secondary to NIKKO has resolved (7) Acute on chronic kidney failure Current Visit: Yes Status: Acute Assessment and plan: Secondary to severe dehydration possibly from HHS Patient also with suspected UTI Renal USS with L perinephric fat stranding, no hydronephrosis Continue IVF hydration Avoid nephrotoxins Patient was on HCTZ and Lisinopril at home Continue to hold HCTZ and Lisinopril Continue to monitor renal function (8) DVT prophylaxis Current Visit: Yes Status: Acute Assessment and plan: Heparin SQ (9) Morbid obesity with BMI of 45.0-49.9, adult Current Visit: Yes Status: Chronic (10) CKD (chronic kidney disease), stage III Current Visit: Yes Status: Chronic Assessment and plan: Patient stated Baseline unknown Mgt as in NIKKO (11) Fall Current Visit: Yes Status: Acute Assessment and plan: PT/OT eval noted, for SNF/ECF at time of discharge Fall precautions Qualifiers: Encounter type: initial encounter Qualified Code(s): W19.XXXA - Unspecified fall, initial encounter (12) Respiratory failure Current Visit: Yes Status: Acute Assessment and plan: Resolved Patient had transient hypoxia after opiate medication, resolved with narcan CXR done on admission and 11/22 with no infiltrates Qualifiers: Chronicity: acute Respiratory failure complication: hypoxia Qualified Code(s): J96.01 - Acute respiratory failure with hypoxia - Subjective Interval history: Seen and evaluated at bedside patient with CKD III, Morbid Obesity, Uncontrolled complicated DM, HTN, COPD, DJD He was admitted and being managed for HHS, SIRS, NIKKO on CKD Patient developed acute hypoxic respiratory failure last night due to opiate use , he improved promptly with Narcan His blood pressure became low and his blood, urine, and Left knee joint culture is currently growing GPC , suspected to be MRSA The night team had started him on Vancomycin and Zosyn and consulted orthopedics Renal USS shows possible perinehpric fat stranding he is evaluated at bedside, denies new complains, in no form of distress He is for surgery this afternoon - Constitutional Vitals: Temp Pulse Resp BP Pulse Ox 97.9 F 86 20 112/56 94 11/23/16 07:52 11/23/16 08:00 11/23/16 08:00 11/23/16 08:00 11/23/16 08:00 General appearance: Present: A&O X 3, morbidly obese, pleasant, no acute distress, answers questions appropriately - Head Head exam: Present: atraumatic, normocephalic - Eye Eye exam: Present: PERRL, conjuntiva pink, sclera anicteric Pupils: Present: PERRL - Neck Neck exam general surgery: Present: supple, trachea midline. Absent: lymphadenopathy - Respiratory Respiratory exam: Present: CTAB. Absent: accessory muscle use, rales, rhonchi, wheezes - Cardiovascular Cardiovascular exam: Present: RRR, +S1, +S2. Absent: diastolic murmur, gallop, rubs, systolic murmur - GI/Abdominal GI/Abdominal exam: Present: normal bowel sounds, soft, no peritoneal signs. Absent: distended, tenderness - Extremities Exam Extremities exam: Present: warm, radial pulses palpable and symetrical. Absent : calf tenderness, cyanotic, pedal edema Additional comments: Chronic venous stasis changes, no active infection, no pedal edema - Neurological Exam Neurological exam: Present: alert, CN II-XII intact, oriented X3, no focal deficits. Absent: pronater drift, facial droop, speech deficit - Skin Skin exam: Present: dry, intact Internal Medicine: Result - Labs CBC & Chem 7: 11/23/16 05:22 11/23/16 05:22 Labs: Short CBC 11/22/16 11/23/16 Range/Units 19:52 05:22 WBC 22.4 H 20.4 H (4.3-11.1) K/mcL Hgb 11.7 L 11.4 L (12.9-16.9) g/dL Hct 35.9 L 35.6 L (37.5-50.1) % Plt Count 210 193 (140-400) K/mcL Neutrophils # 20.2 H 17.8 H (1.6-8.9) K/mcL BMP 11/22/16 11/23/16 19:52 05:22 Sodium 132 L 133 L Potassium 4.0 4.8 H Chloride 102 105 Carbon Dioxide 19 18 L BUN 63 H D 66 H Creatinine 2.93 H D 2.85 H Glucose 325 H 224 H Calcium 8.6 8.1 L - ABG Interpretation ABG results: ABG ABG pH 7.26 pH Units (7.32-7.45) L 11/22/16 18:50 ABG pCO2 44 mmHg (35-45) 11/22/16 18:50 ABG pO2 64 mmHg (85-104) L 11/22/16 18:50 ABG O2 Saturation 88 % (95-98) L 11/22/16 18:50 - Impressions Impressions Retroperitoneum Ultrasound 11/22/16 16:00 IMPRESSION: Overall normal parenchymal echotexture and renal length in the kidneys bilaterally, though mild cortical thinning on the left is noted. No hydronephrosis or solid renal mass is identified. D/ / Clive Krishna MD / Clive Krishna MD Interpreting Provider: Clive Krishna MD Chest X-Ray 11/22/16 19:30 IMPRESSION: No acute cardiopulmonary process. D/ / Alicia Lazcano MD / Alicia Lazcano MD Interpreting Provider: Alicia Lazcano MD Consult Discharge Plan - Plan Referrals: NO,PCP [Primary Care Provider] -
[2016-11-23 09:03] LABS: INR 1.1; Prothrombin Time 12.3 Seconds (9.4-12.1)
[2016-11-23 09:05] LABS: Activated Partial Thrombo Time 23.2 Seconds (26.0-36.0)
--- NOTE | 2016-11-23 09:30 | Orthopedic Consult Note ---
Date of Encounter: 11/23/16 Time of Encounter: 07:15 Assessment and Plan (1) Septic arthritis of knee, left Current Visit: Yes Status: Acute I did discuss the diagnosis in detail with the patient. The patient had a left knee aspirate which is growing gram-positive cocci. This is in the setting of a significantly elevated white count. The recommendation is for arthroscopic lavage of the left knee in order to help clear the infection. The risks discussed included but were not limited to stiffness, bleeding, infection, blood clots, damage to neurovascular structures, tendons, ligaments, and bone. Also discussed was the risk of continued symptoms and possible need for further procedures. I did discuss the anesthesia risks including stroke, heart attack, and . I did discuss the reasonable, foreseeable postoperative course with the patient. He will require long-term IV antibiotics. I did discuss this patient with my partner Dr. Aguirre who will perform the knee washout later today. Keep patient nothing by mouth. Qualifiers: Qualified Code(s): M00.062 - Staphylococcal arthritis, left knee History of Present Illness HPI: Mr. Arceo is a 70 year old male with a long history of knee arthritis on the left. He ambulates with a walker. He lives independently. He has a history of diabetes and renal disease. He was admitted 2 days ago after a fall with left knee pain. He did have a significantly elevated white count and the left knee was aspirated. The patient was admitted to the ICU as he apparently went unresponsive after pain medication, however he had recovered from this. Left knee pain did continue and the cultures came back growing gram-positive cocci. He was also found to be bacteremic. Her speech was counseled to do assist in the evaluation and management of this patient. My evaluation the patient complains of localized pain to the left knee. He indicates this has worsened since his fall. He does note a chronic history of left knee pain due to the arthritis even before the fall. He has not been able to walk since the fall. He denies any new numbness, tingling, or any other associate signs or symptoms. Pain is worse with any movement of the left knee and better at rest. No other modifying factors. Past Med Surg Social Fam HX - Past Medical History Medical history: diabetes, hyperlipidemia, hypertension, renal disease Psychiatric history: no psych history - Social History Smoking Status: Never smoker Smokeless Tobacco Status: No Alcohol use: none Drug use: none - Family History Mother Living Status: Hx Family Endocrine Disorder: Yes (diabetes) Medications and Allergies Aspirin Enteric Coated [Aspirin EC] 81 mg PO DAILY 11/21/16 [History] Atorvastatin Calcium [Lipitor] 20 mg PO HS 11/21/16 [History] Cholecalciferol (D-3) [Vitamin D] 2,000 unit PO DAILY 11/21/16 [History] Gabapentin [Neurontin] 600 mg PO TID 11/21/16 [History] Glimepiride [Amaryl] 4 mg PO BID 11/21/16 [History] Insulin DETEMIR [Levemir] 20 unit SQ HS 11/21/16 [History] Lisinopril [Zestril] 20 mg PO BID 11/21/16 [History] Multivitamin [Multi-Day Vitamins] 1 each PO DAILY 11/21/16 [History] Nystatin POWDER [Nystop] 1 appl TP TID 11/21/16 [History] Omeprazole [PriLOSEC] 20 mg PO DAILY 11/21/16 [History] Oxycodone HCl [Roxicodone 30 MG Immed Release] 30 mg PO Q6HR PRN 11/21/16 [ History] Potassium Chloride [K-Tab ER] 20 meq PO DAILY 11/21/16 [History] Sertraline [Zoloft] 100 mg PO DAILY 11/21/16 [History] amLODIPine [Norvasc] 5 mg PO DAILY 11/21/16 [History] hydroCHLOROthiazide [Hydrochlorothiazide] 12.5 mg PO DAILY 11/21/16 [History] Allergies morphine Allergy (Verified 11/21/16 16:26) Hallucinating All Systems Reviewed: Constitutional and musculoskeletal systems were reviewed and are negative unless otherwise stated in history of present illness. Physical Exam - Constitutional Vitals: Temp Pulse Resp BP Pulse Ox 97.9 F 86 20 112/56 94 11/23/16 07:52 11/23/16 08:00 11/23/16 08:00 11/23/16 08:00 11/23/16 08:00 CONSTITUTIONAL -Vitals reviewed -The patient is well developed, well nourished, well groomed PSYCHIATRIC -Fully alert and oriented x 3 -Pleasant mood LEFT LOWER EXTREMITY -Evaluation shows that the skin and the soft tissue envelope is intact. He does have changes from chronic venous stasis. No redness noted. Diffusely tender and swollen left knee which cannot be arranged due to pain. No pain with logroll the hip. He can actively flex and extend the ankle and toes. The foot is grossly sensate and well-perfused. Diagnostic Imaging: I did personally review and interpret x-rays of the left hip which do show extensive arthritic change. Results - Labs Result Diagrams: 11/23/16 05:22 11/23/16 05:22 Labs: Abnormal lab results WBC 20.4 K/mcL (4.3-11.1) H 11/23/16 05:22 RBC 4.13 M/mcL (4.19-5.50) L 11/23/16 05:22 Hgb 11.4 g/dL (12.9-16.9) L 11/23/16 05:22 Hct 35.6 % (37.5-50.1) L 11/23/16 05:22 MCH 27.6 pg (28.0-33.3) L 11/23/16 05:22 Neutrophils # 17.8 K/mcL (1.6-8.9) H 11/23/16 05:22 Monocytes # 1.4 K/mcL (0.0-1.3) H 11/23/16 05:22 Hypersegmented Neuts Present (Not Present) A 11/22/16 04:12 Toxic Granulation Present (Not Present) A 11/22/16 04:12 PT 12.3 Seconds (9.4-12.1) H 11/23/16 07:38 APTT 23.2 Seconds (26.0-36.0) L 11/23/16 07:38 ABG pH 7.26 pH Units (7.32-7.45) L 11/22/16 18:50 ABG pO2 64 mmHg (85-104) L 11/22/16 18:50 ABG HCO3 19.7 mEQ/L (21-27) L 11/22/16 18:50 ABG O2 Saturation 88 % (95-98) L 11/22/16 18:50 ABG Base Excess -7.2 mEq/L (-2.0 to 3.0) L 11/22/16 18:50 VBG HCO3 27.2 mEq/L (21-27) H 11/21/16 18:03 Sodium 133 mEq/L (136-145) L 11/23/16 05:22 Potassium 4.8 mEq/L (3.5-4.5) H 11/23/16 05:22 Carbon Dioxide 18 mEq/L (19-29) L 11/23/16 05:22 BUN 66 mg/dL (8-26) H 11/23/16 05:22 Creatinine 2.85 mg/dL (0.72-1.25) H 11/23/16 05:22 Est GFR ( Amer) 27 (> 60) L 11/23/16 05:22 Est GFR (Non-Af Amer) 22 (> 60) L 11/23/16 05:22 Glucose 224 mg/dL (70-99) H 11/23/16 05:22 POC Glucose 204 (58-89) H 11/23/16 07:30 Hemoglobin A1c 12.2 % (-5.6) H 11/22/16 04:12 Calculated Osmolality 302 (280-300) H 11/23/16 05:22 Calcium 8.1 mg/dL (8.6-10.8) L 11/23/16 05:22 Creatine Kinase 685 Units/L (30-200) H 11/21/16 16:52 Beta-Hydroxybutyric Acd > 2.00 mmol/L (0.02-0.27) H 11/21/16 16:52 Urine Clarity Cloudy (Clear) A 11/21/16 17:30 Ur Specific [place] 1.026 (1.010-1.025) H 11/21/16 17:30 Urine Protein 30 mg/dL (Neg-Trace) H 11/21/16 17:30 Urine Glucose (UA) >=1000 mg/dL (Normal) H 11/21/16 17:30 Urine Ketones 15 mg/dL (Negative) H 11/21/16 17:30 Urine Blood Large (Negative) H 11/21/16 17:30 Ur Leukocyte Esterase Trace (Negative) H 11/21/16 17:30 Urine Microscopic RBC 5-15 per hpf (0-3) H 11/21/16 17:30 Urine Microscopic WBC 5-15 per hpf (0-3) H 11/21/16 17:30 Ur Squamous Epith Cells Many per lpf (None-Few) H 11/21/16 17:30 Urine Yeast Few per hpf (None Seen) H 11/21/16 17:30 Ur Culture Indicated? YES (NO) A 11/21/16 17:30 Staphylococcus sp PCR DETECTED (Not Detect) A 11/22/16 04:12 Staph aureus (PCR) DETECTED (Not Detect) A 11/22/16 04:12 mecA-Methicil Res Gene DETECTED (Not Detect) A 11/22/16 04:12 H & H 11/22/16 11/23/16 Range/Units 19:52 05:22 Hgb 11.7 L 11.4 L (12.9-16.9) g/dL Hct 35.9 L 35.6 L (37.5-50.1) % All other labs normal. Consult Discharge Plan - Plan Referrals: NO,PCP [Primary Care Provider] -
[2016-11-23] MEDS: Nystatin POWDER 30 GM BOTTLE TP SCH ×3 (10:42→19:50)
--- NOTE | 2016-11-23 11:27 | Anesthesia Evaluation PreOp ---
Date of Encounter: 11/23/16 Time of Encounter: 11:25 - Past History Planned Operation: Left Knee Arthroscopic Washout Cardiac History: HTN, Hyperlipidemia Pulmonary History: COPD, Snore IRRIGATOR VALVE PIPE History: Denies Any Significant HX Other Medical History: Renal (NIKKO on CKD stage 3), Diabetes Type II, GERD, Other (sepsis/septic arthritis (MRSA)) Anesthesia History: No Prior Anesthetic Complications, Past Anesthesia Alcohol Use: none Drug use: none Medications and Allergies Aspirin Enteric Coated [Aspirin EC] 81 mg PO DAILY 11/21/16 [History] Atorvastatin Calcium [Lipitor] 20 mg PO HS 11/21/16 [History] Cholecalciferol (D-3) [Vitamin D] 2,000 unit PO DAILY 11/21/16 [History] Gabapentin [Neurontin] 600 mg PO TID 11/21/16 [History] Glimepiride [Amaryl] 4 mg PO BID 11/21/16 [History] Insulin DETEMIR [Levemir] 20 unit SQ HS 11/21/16 [History] Lisinopril [Zestril] 20 mg PO BID 11/21/16 [History] Multivitamin [Multi-Day Vitamins] 1 each PO DAILY 11/21/16 [History] Nystatin POWDER [Nystop] 1 appl TP TID 11/21/16 [History] Omeprazole [PriLOSEC] 20 mg PO DAILY 11/21/16 [History] Oxycodone HCl [Roxicodone 30 MG Immed Release] 30 mg PO Q6HR PRN 11/21/16 [ History] Potassium Chloride [K-Tab ER] 20 meq PO DAILY 11/21/16 [History] Sertraline [Zoloft] 100 mg PO DAILY 11/21/16 [History] amLODIPine [Norvasc] 5 mg PO DAILY 11/21/16 [History] hydroCHLOROthiazide [Hydrochlorothiazide] 12.5 mg PO DAILY 11/21/16 [History] Allergies morphine Allergy (Verified 11/21/16 16:26) Hallucinating - Meds/Allergy Pre-op Review Medications Reviewed: Yes Allergies Reviewed: Yes Beta Blockers on Current Med List: No Anesthesia Results - Labs 11/23/16 05:22 11/23/16 05:22 - Imaging EKG: report reviewed (11/21/2016 SR) Anesthesia Exam Vital Signs/O2 Sat/Glucose, Most Recent Temp Pulse Resp BP Pulse Ox 97.9 F 106 20 118/77 97 11/23/16 07:52 11/23/16 11:10 11/23/16 11:10 11/23/16 11:10 11/23/16 11:10 Blood Glucose* 204 Height: 5'11''/1.8 m Weight: 330 lbs/150.1 kg NPO (# of Hours): 8 Pain Scale: 0 Pain Scale Used: Numeric (1 - 10) - HEENT Pupil (Motor): EOMI Mallampati: II Teeth: Missing, Poor dentition Oral Opening: Greater than 3 - IRRIGATOR VALVE PIPE LOC: Oriented IRRIGATOR VALVE PIPE Motor: Normal RUE, Normal LUE, Normal RLE, Normal LLE, Normal Face IRRIGATOR VALVE PIPE Sensory: Normal: RUE, LUE, Face, Deficit: RLE, LLE - Cardiac Rhythm: Regular Murmur: None - Pulmonary Breath Sounds: bilateral Clear Respiratory Effort: Symmetrical Anesthesia Assess/Plan ASA Score: 4 Modified Zulema Scale for Level of Consciousness: Cooperative, oriented, and tranquil Anesthetic Plan: General Monitoring Plan: Standard Monitors Recovery Plan: PACU
[2016-11-23] MEDS ORDERED: Bupivacaine/EPI 1:200k 0.5%PF 30 ML VIAL ONE (11:53)
--- NOTE | 2016-11-23 11:57 | Infectious Disease Consult ---
Date of Encounter: 11/23/16 Time of Encounter: 11:54 Assessment and Plan (1) Sepsis Status: Acute Assessment and plan: The patient had 2 SIRS criteria on admission. Likely secondary to bacteremia and left knee septic arthritis. Improved. White blood cell count trending down. Tachycardia continues to be intermittent. The patient has been afebrile. Cultures drawn 11/22/16 are +2 out of 2 sets for MRSA. Repeat blood cultures 2 sets in the morning. Qualifiers: Sepsis type: methicillin resistant Staphylococcus aureus Qualified Code(s) : A41.02 - Sepsis due to Methicillin resistant Staphylococcus aureus (2) Bacteremia due to Gram-positive bacteria Status: Acute Assessment and plan: Causative organism: MRSA. Source likely left knee septic arthritis. Complicated due to seeding of the kidneys/urine. Blood cultures drawn 11/22/16 are +2 out of 2 sets for gram-positive cocci. The PCR picked up MRSA. The patient has no endocarditis stigmata noted on physical exam. He meets two minor modified Pitt criteria at this point. Repeat blood cultures 2 sets in the morning. Get TTE. If negative, will likely require a BERNARDO. Continue vancomycin IV. Pharmacy to dose. Goal trough approximately 15. Duration of treatment depends on the clinical picture, but likely 4 weeks given the complicated nature of the bacteremia. Await repeat blood cultures. Avoid the insertion of central venous access until repeat blood cultures are negative 48 hours. Monitor renal function and for drug toxicity and dose adjust antibiotics (3) Septic arthritis of knee, left Status: Acute Assessment and plan: Location: Left knee. Etiology not entirely clear. The patient has no indwelling hardware. He denies any injury prior to the fall the day before admission. Causative organism likely MRSA based on the blood culture results. Synovial fluid culture Gram stain shows gram-positive cocci. Left knee x-ray showed a small to moderate suprapatellar knee effusion. Status post arthrocentesis 11/21/16 in the emergency department. No sample was sent for cell count. Orthopedics has been consulted. The patient is scheduled to go to the operating room later today for left knee washout. Check ESR and CRP. Continue antibiotics as above. Duration of treatment depends on the clinical picture. Qualifiers: Septic arthritis organism: staphylococcal Qualified Code(s): M00.062 - Staphylococcal arthritis, left knee (4) Acute on chronic kidney failure Status: Acute Assessment and plan: Serum creatinine elevated at 2.48 on admission. Unfortunately, we have no prior lab results to which we can compare this number. It is possible that the patient has underlying CKD as well. Retroperitoneal ultrasound negative. Serum creatinine slightly worse today at 2.85. Continue to trend. If it continues to worsen, consider nephrology consult. Avoid nephrotoxins as able. Dose adjust antibiotics and other medications based on creatinine clearance. (5) Asymptomatic bacteriuria Status: Acute Assessment and plan: Urinalysis obtained in the emergency department shows trace leukocyte esterase, 5-15 white blood cells, but many epithelial cells. Urine culture is positive for gram-positive cocci. In light of the patient's bacteremia, I anticipate that this will come back positive for MRSA. This is likely seeding of the kidneys/urine. The patient has been asymptomatic. Normally, there would be no indication to treat, but given the patient's bacteremia he will require antibiotics. (6) Hyponatremia Status: Acute Assessment and plan: Serum sodium level 128 on admission. Improved. Management per the primary team. (7) Hyperglycemia Status: Acute Assessment and plan: Serum glucose greater than 600 on arrival. Likely multifactorial--> infectious process, poorly controlled diabetes, etc. Improved. Further management per the primary team. (8) Hyperkalemia Status: Resolved Assessment and plan: Likely secondary to acute kidney injury. Resolved. (9) Diabetes mellitus type 2 in obese Status: Acute Assessment and plan: Uncontrolled. Hemoglobin A1c 12.2. Recommend aggressive glucose monitoring and control to promote wound healing and prevent reinfection. (10) Morbid obesity with BMI of 45.0-49.9, adult Status: Chronic Infectious Disease HPI - Data of Consult Patient: new to practice Consult date: 11/23/16 Requesting Physician: Sanjuana Wolf Primary Care Provider: PCP NO - Consult Narrative Reason for consult: MRSA bacteremia History of present illness: Mr. Arceo is a 70 year old male with a past medical history of diabetes, hyperlipidemia, hypertension, CAD, COPD, and degenerative joint disease. The patient was admitted to the hospital November 21 for acute renal failure, hyperglycemia, hyperkalemia, and leukocytosis. We are consulted November 23 for further evaluation and treatment recommendations regarding MRSA bacteremia and left knee septic arthritis. The patient is a 70-year-old male with past medical history as stated above. The patient presented to the emergency department with complaints of worsening left knee pain. He states that the day prior to admission he fell at home after his left knee gave out and he continued to have worsening left knee pain. Upon arrival, he was afebrile, but was tachycardic and have leukocytosis with neutrophilic predominance. Other laboratory studies revealed an acute kidney injury and elevated CK level. Urinalysis was obtained that appeared contaminated. Chest x-ray was negative. Left knee x-ray showed a small to moderate suprapatellar knee effusion. Pelvis x-ray was negative. The emergency room physician performed a left knee arthrocentesis that yielded a small amount of bloody synovial fluid. No cell count was performed, but the specimen was sent for culture and Gram stain shows gram-positive cocci. Additionally, urine specimen was sent for culture. The patient was admitted to the hospital for further evaluation and treatment. Since admission, the patient's leukocytosis has somewhat improved. His acute kidney injury is stable. Review of medical record reveals that last night the patient can somnolent and unresponsive and required a dose of Narcan with positive results. He also had some hypotension and was transferred to the intensive care unit. Resume obtained on 11/22/16 a +2 out of 2 sets for gram- positive cocci, PCR picked up MRSA. X-ray time of the rapid response is negative. Retroperitoneal ultrasound was negative as well. Hemoglobin A1c was checked is 12.2. Lactic acid is normal. Uric acid was normal. Orthopedics has been consulted and the patient is scheduled to go to the operating room for left knee washout later today. He has been started on IV vancomycin by the primary team. We've been asked to evaluate make further recommendations. During my exam today, the patient endorses a history as stated above. He states that he was in his usual state of health up until the day that he fell. He states that night he developed chills with rigors, but denies any known fevers. He denies any headache or neck pain or dizziness. He denies any congestion, earache, or sore throat. He denies any chest pain, shortness of breath, or cough. He denies any nausea, vomiting, or constipation. He does report the onset of diarrhea partially 24 hours prior to be admitted and states that his stool was loose and brown. He denies blood or mucus in his stool. He denies any bowel or bladder incontinence. He denies any urinary complaints, but does state that he voids frequently because he drinks a large amount of fluids today. He denies any oral thrush. His only complaint in regards pain is in the left knee. He denies any warmth or redness in the left knee, but does report tenderness and pain with palpation and range of motion and states he has been unable to bear weight. Patient lives at home with his son and 3 other gentleman. He is retired. He denies any alcohol, illicit drug, or tobacco use. CC: Sajnuana Wolf Past Med Surg Social Fam HX - Past Medical History Attestation: Yes The following information was validated with the patient. Source: patient, old records reviewed, nursing notes reviewed Medical history: diabetes, hyperlipidemia, hypertension, renal disease Psychiatric history: no psych history - Past Surgical History Surgical History: other (Ping's gangrene I & D, Right foot toe amputation) - Social History Smoking Status: Never smoker Smokeless Tobacco Status: No Alcohol use: none Drug use: none Occupational status: retired Current living situation: Home - Independent Activity Level: Uses cane/walker Recent Out of Country Travel Within the Last 8 Weeks: No Exposure or Possible Exposure to Illness During Travel: No - Family History Mother Living Status: Hx Family Endocrine Disorder: Yes (diabetes) Infectious Disease-CN:Meds Aspirin Enteric Coated [Aspirin EC] 81 mg PO DAILY 11/21/16 [History] Atorvastatin Calcium [Lipitor] 20 mg PO HS 11/21/16 [History] Cholecalciferol (D-3) [Vitamin D] 2,000 unit PO DAILY 11/21/16 [History] Gabapentin [Neurontin] 600 mg PO TID 11/21/16 [History] Glimepiride [Amaryl] 4 mg PO BID 11/21/16 [History] Insulin DETEMIR [Levemir] 20 unit SQ HS 11/21/16 [History] Lisinopril [Zestril] 20 mg PO BID 11/21/16 [History] Multivitamin [Multi-Day Vitamins] 1 each PO DAILY 11/21/16 [History] Nystatin POWDER [Nystop] 1 appl TP TID 11/21/16 [History] Omeprazole [PriLOSEC] 20 mg PO DAILY 11/21/16 [History] Oxycodone HCl [Roxicodone 30 MG Immed Release] 30 mg PO Q6HR PRN 11/21/16 [ History] Potassium Chloride [K-Tab ER] 20 meq PO DAILY 11/21/16 [History] Sertraline [Zoloft] 100 mg PO DAILY 11/21/16 [History] amLODIPine [Norvasc] 5 mg PO DAILY 11/21/16 [History] hydroCHLOROthiazide [Hydrochlorothiazide] 12.5 mg PO DAILY 11/21/16 [History] Allergies morphine Allergy (Verified 11/21/16 16:26) Hallucinating All systems: reviewed and no additional remarkable complaints except as stated Exam - Constitutional Vitals: Temp Pulse Resp BP Pulse Ox 97.9 F 106 20 118/77 97 11/23/16 07:52 11/23/16 11:10 11/23/16 11:10 11/23/16 11:10 11/23/16 11:10 General appearance: cooperative, morbidly obese, no acute distress - Head Head exam: Present: atraumatic, normal inspection, normocephalic - Eye Eye exam: Present: EOMI, normal appearance, PERRL Pupils: Present: normal accommodation Additional comments: No subconjunctival hemorrhage noted. - ENT ENT exam: Present: mucous membranes moist Additional comments: Very poor dentition noted with almost all of his teeth missing. - Neck Neck exam: Present: normal inspection - Respiratory Respiratory exam: Present: CTAB. Absent: rales, respiratory distress, rhonchi, wheezes - Cardiovascular Cardiovascular exam: Present: RRR, +S1, +S2 - GI/Abdominal GI/Abdominal exam: Present: distended (Obese), normal bowel sounds, soft. Absent: tenderness Additional comments: Elizalde catheter noted to be draining cloudy yellow urine. - Extremities Exam Extremities exam: Present: joint swelling (Left knee), tenderness (Left knee). Absent: pedal edema Additional comments: Range of motion to the left knee is decreased due to pain and swelling. No warmth or erythema noted. Tenderness noted with palpation. - Back Exam Back exam: Present: normal inspection. Absent: paraspinal tenderness, vertebral tenderness - Neurological Exam Neurological exam: Present: alert, oriented X3, no focal deficits - Psychiatric Psychiatric exam: Present: normal affect, normal mood - Skin Skin exam: Present: dry, intact, normal color, warm Additional comments: No endocarditis stigmata noted. Infectious Disease CN: Results - Labs CBC & Chem 7: 11/23/16 05:22 11/23/16 05:22 Cultures: Cultures 11/22/16 04:05 Blood Culture - Preliminary Peripheral Venipuncture Gram Positive Cocci 11/22/16 04:12 Blood Culture - Preliminary Peripheral Venipuncture Gram Positive Cocci Serology: Serology 11/22/16 11/22/16 Range/Units 23:39 04:12 Urine Creatinine 208 mg/dL Urine Sodium 20.0 mEq/L Urine Urea Nitrogen 377 mg/dL A. baumannii (PCR) Not Detected (Not Detect) Carol albicans (PCR) Not Detected (Not Detect) C. glabrata (PCR) Not Detected (Not Detect) C. krusei (PCR) Not Detected (Not Detect) C. parapsilosis (PCR) Not Detected (Not Detect) C. tropicalis (PCR) Not Detected (Not Detect) Enterobacteriac sp PCR Not Detected (Not Detect) E. cloacae complex PCR Not Detected (Not Detect) Enterococcus sp PCR Not Detected (Not Detect) E. coli (PCR) Not Detected (Not Detect) H. influenzae (PCR) Not Detected (Not Detect) Klebsiella oxytoca PCR Not Detected (Not Detect) Klebsiella pneumoniae Not Detected (Not Detect) List. monocytogenes PCR Not Detected (Not Detect) N. meningitidis (PCR) Not Detected (Not Detect) Proteus species (PCR) Not Detected (Not Detect) Serratia marcescens PCR Not Detected (Not Detect) Staphylococcus sp PCR DETECTED A (Not Detect) Staph aureus (PCR) DETECTED A (Not Detect) mecA-Methicil Res Gene DETECTED A (Not Detect) Streptococcus sp PCR Not Detected (Not Detect) Group A Strep DNA Not Detected (Not Detect) Group B Strep (PCR) Not Detected (Not Detect) Strep pneumoniae (PCR) Not Detected (Not Detect) P. aeruginosa (PCR) Not Detected (Not Detect) Steve/B-Vanco Res Genes N/A (Not Detect) KPC (blaKPC) Detect PCR N/A (Not Detect) Consult Discharge Plan - Plan Referrals: NO,PCP [Primary Care Provider] -
[2016-11-23] MEDS ORDERED: Vancomycin 2,000 MG in D5% in Water 500 ML IVPB SCH (12:00)
[2016-11-23] MEDS ORDERED: Ondansetron 4 MG/2 ML VIAL ONE (12:57)
[2016-11-23] MEDS ORDERED: Dexamethasone 4 MG/ML VIAL ONE (12:57)
[2016-11-23] MEDS ORDERED: Lidocaine -MPF 2% 2 ML VIAL ONE (12:57)
[2016-11-23] MEDS ORDERED: *HR* FentaNYL (PF) 100 MCG/2 ML VIAL ONE (12:58)
[2016-11-23] MEDS ORDERED: *HR* Propofol 200 MG/20 ML VIAL IVP ONE (12:58)
[2016-11-23] MEDS ORDERED: *HR* HYDROmorphone 2 MG/ML SYRINGE ONE (13:10)
--- NOTE | 2016-11-23 13:17 | Orthopedic Operative Note ---
Date of procedure: 11/23/16 Pre-op diagnosis: Left knee septic arthritis Post-op diagnosis: same Procedure: Procedure: Left knee arthroscopic debridement Estimated blood loss: 5cc Hardware: Cartilage surfaces: Patella: 4 Trochlear groove: 4 Medial compartment: 4 Lateral compartment: 4 Exam Under anesthesia: Loss full extension 30 degrees flexion to 45 degrees Patient was brought to the operating room and placed on the operating room table. After general anesthesia was administered. The operative leg was examined and noted. The operative leg was prepped and draped in the sterile surgical fashion. The patient received IV antibiotics prior to skin incision. A superior medial outflow portal was established. Bloody fluid was returned and sent for culture. The arthroscope was introduced through an anterolateral portal. Diagnostic evaluation of the patella trochlear groove medial and lateral compartments were performed. Patient noted to have grade 4 arthritic changes all 3 compartments. 1.5 L of normal saline were washed through the knee followed by 1 L of Bactisure followed by 1.5 L of normal saline. The arthroscope was removed from the knee. Portals were closed with interrupted 2-0 nylon suture. The knee was infiltrated with half percent Marcaine with epinephrine. The patient was placed in a sterile dressing. The patient was extubated and tolerated the procedure well and transferred to the recovery room in stable condition. Anesthesia: GETA Surgeon: Bladimir Aguirre Condition: stable Disposition: ICU
[2016-11-23] MEDS: 0.9 % Sodium Chloride 1,000 ML IVC SCH ×2 (13:54→21:21)
[2016-11-23] MEDS: *HR* OxyCODONE Immed Rel 5 MG TABLET PO PRN (19:56)
[2016-11-23] MEDS ORDERED: Piperacillin/Tazobactam 3.375 GM in D5% in Water (Mini-Bag+) 100 ML IVPB SCH (20:54)
[2016-11-23] MEDS ORDERED: Insulin DETEMIR 100 UNIT/ML X5UNITS SQ SCH (21:00)
[2016-11-24] MEDS: 0.9 % Sodium Chloride 1,000 ML IVC SCH (04:35)
[2016-11-24] MEDS: *HR* Heparin 5,000 UNIT/ML VIAL SQ SCH ×2 (04:35→18:57)
[2016-11-24 06:55] LABS: Hematocrit 36.1 % (37.5-50.1); Hemoglobin 11.5 g/dL (12.9-16.9); Mean Corpuscular HGB Conc 31.9 g/dL (31.6-35.5); Mean Corpuscular Hemoglobin 27.6 pg (28.0-33.3); Mean Corpuscular Volume 86.8 fL (83.0-100.0); Mean Platelet Volume 9.7 fL (9.4-12.4); Platelet Count 232 K/mcL (140-400); Red Blood Count 4.16 M/mcL (4.19-5.50); Red Cell Distribution Width 14.5 % (11.5-14.5)
[2016-11-24 07:03] LABS: Albumin/Globulin Ratio 0.4 (1.1-2.2); Bilirubin,Direct 0.6 mg/dL (0.0-0.5); Bilirubin,Indirect 0.1 mg/dL (0.0-1.2); Bilirubin,Total 0.7 mg/dL (0.2-1.2); Globulin 4.4 g/dL (2.4-3.5)
[2016-11-24 07:07] LABS: Calcium 8.4 mg/dL (8.6-10.8); Potassium 4.2 mEq/L (3.5-4.5)
[2016-11-24 07:14] LABS: Albumin 1.6 g/dL (3.5-5.0)
[2016-11-24 07:57] LABS: Lymphocytes # 0.3 K/mcL (0.6-4.6); Monocytes # 0.7 K/mcL (0.0-1.3); Neutrophils # 15.5 K/mcL (1.6-8.9)
[2016-11-24 07:58] LABS: Platelet Estimate Normal (Normal); Polychromasia 1+ (Not Present)
[2016-11-24 07:59] LABS: Anisocytosis 1+ (Not Present); Microcytosis Present (Not Present)
[2016-11-24] MEDS: Nystatin POWDER 30 GM BOTTLE TP SCH ×3 (08:06→22:14)
[2016-11-24] MEDS: Multivit/Ca/Min/Fe/FA 1 TAB TABLET PO SCH (08:06)
[2016-11-24] MEDS: Cholecalciferol (D-3) 1,000 UNIT TABLET PO SCH (08:07)
[2016-11-24] MEDS: Gabapentin 300 MG CAPSULE PO SCH ×2 (08:07→20:07)
[2016-11-24] MEDS: Aspirin Enteric Coated 81 MG Tablet PO SCH (08:07)
[2016-11-24] MEDS: Insulin LISPRO 300 UNITS/3 ML VIAL SQ SCH ×7 (08:07→21:51)
[2016-11-24] MEDS: *HR* OxyCODONE Immed Rel 5 MG TABLET PO PRN ×3 (08:11→18:57)
--- NOTE | 2016-11-24 09:43 | Internal Med Progress Note ---
Date of Encounter: 11/24/16 Time of Encounter: 09:34 - Assessment and plan (1) Sepsis Current Visit: Yes Status: Acute Assessment and plan: Patient presented with fall Work up on admission revealed FS >600, Leukocytosis, tachycardia, NIKKO, normal BP He decompensated to low blood pressures, responded to IVF hydration, discontinue IVF Lactate was normal on admission UA was dirty and he received 2g of ceftriaxone However, blood, Urine and Synovial fluid from left knee growing MRSA Patient remains afebrile , he is not hypothermic Patient not a known IVDU POD 1 s/p Left knee arthroscopic debridement Leukocytosis is improving BP is now normal, will discontinue IVF Urine culture from 11/21 showed MRSA sensitive to vancomycin, Bactrim, Tetracycline Rifampin, Nitrofurantoin and Linezolid Synovial fluid from left knee shows MRSA sensitive to vancomycin, Bactrim, Tetracycline Rifampin,Clindamycin and Linezolid Blood culture 11/12/16 GPC, MRSA, sensitivity is pending Repeat blood culture drawn today 11/24/16 ECHO was normal, with no peripheral stigmata for infective endocarditis, will not obtain BERNARDO at this time The source of his sepsis is probably his L knee arthritis, and UTI Will continue Vancomycin-renally dose-Day 2 Follow repeat cultures Duration on treatment will be likely 4-6 weeks May consider changing medication to less nephrotoxic medications when blood culture is finalized Patient will need a PICC line when blood culture are negative X2 Repeat blood culture scheduled for Sunday 11/26 Qualifiers: Sepsis type: methicillin resistant Staphylococcus aureus Qualified Code(s) : A41.02 - Sepsis due to Methicillin resistant Staphylococcus aureus (2) Bacteremia due to Gram-positive bacteria Current Visit: Yes Status: Acute Assessment and plan: MRSA bacteremia Management as above (3) Septic arthritis Current Visit: Yes Status: Acute Assessment and plan: As in sepsis POD 1 Continue IV antibiotics Qualifiers: Septic arthritis location: knee Septic arthritis organism: staphylococcal Laterality: left Qualified Code(s): M00.062 - Staphylococcal arthritis, left knee (4) Hyperosmolar non-ketotic state in patient with type 2 diabetes mellitus Current Visit: Yes Status: Acute Assessment and plan: Patient who presented with FS >600 and A1C of 12.2 FS is improving with current insulin regimen Adjusted regimen to include basal, prandial and supplemental scale insulin Continue to monitor FS Goal FS is 140-180 (5) SIRS (systemic inflammatory response syndrome) Current Visit: Yes Status: Acute Assessment and plan: As in sepsis (6) Hyperkalemia Current Visit: Yes Status: Resolved Assessment and plan: Secondary to NIKKO has resolved (7) Acute on chronic kidney failure Current Visit: Yes Status: Acute Assessment and plan: Secondary to severe dehydration possibly from HHS Improving MRSA UTI with pyelonephritis Renal USS with L perinephric fat stranding, no hydronephrosis Continue IVF hydration Avoid nephrotoxins Patient was on HCTZ and Lisinopril at home Continue to hold HCTZ and Lisinopril Continue to monitor renal function (8) DVT prophylaxis Current Visit: Yes Status: Acute Assessment and plan: Heparin SQ (9) CKD (chronic kidney disease), stage III Current Visit: Yes Status: Chronic Assessment and plan: Patient stated Baseline unknown Mgt as in NIKKO (10) Fall Current Visit: Yes Status: Acute Assessment and plan: PT/OT eval noted, for SNF/ECF at time of discharge Fall precautions Qualifiers: Encounter type: initial encounter Qualified Code(s): W19.XXXA - Unspecified fall, initial encounter (11) Respiratory failure Current Visit: Yes Status: Resolved Assessment and plan: Resolved Patient had transient hypoxia after opiate medication, resolved with narcan CXR done on admission and 11/22 with no infiltrates Qualifiers: Chronicity: acute Respiratory failure complication: hypoxia Qualified Code(s): J96.01 - Acute respiratory failure with hypoxia (12) Morbid obesity with BMI of 45.0-49.9, adult Current Visit: Yes Status: Chronic (13) Hypertension Current Visit: Yes Status: Chronic Assessment and plan: BP has improved with IVF May start NOrvasc prn Continue to hold ACEI/HCTZ due to NIKKO Qualifiers: Hypertension type: essential hypertension Qualified Code(s): I10 - Essential (primary) hypertension - Subjective Interval history: Seen and evaluated at bedside patient with CKD III, Morbid Obesity, Uncontrolled complicated DM, HTN, COPD, DJD He was admitted and being managed for HHS, MRSA bacteremia, L knee septic arthritis, MRSA UTI, NIKKO on CKD He is seen and evaluated at bedside, no new complains - Constitutional Vitals: Temp Pulse Resp BP Pulse Ox 98.1 F 100 22 153/69 94 11/24/16 07:44 11/24/16 09:00 11/24/16 09:00 11/24/16 09:00 11/24/16 09:00 General appearance: Present: A&O X 3, morbidly obese, pleasant, no acute distress, answers questions appropriately - Head Head exam: Present: atraumatic, normocephalic - Eye Eye exam: Present: PERRL, conjuntiva pink, sclera anicteric Pupils: Present: PERRL - Neck Neck exam general surgery: Present: supple, trachea midline. Absent: lymphadenopathy - Respiratory Respiratory exam: Present: CTAB. Absent: accessory muscle use, rales, rhonchi, wheezes - Cardiovascular Cardiovascular exam: Present: RRR, +S1, +S2. Absent: diastolic murmur, gallop, rubs, systolic murmur - GI/Abdominal GI/Abdominal exam: Present: normal bowel sounds, soft, no peritoneal signs. Absent: distended, tenderness - Extremities Exam Extremities exam: Present: warm, radial pulses palpable and symetrical. Absent : calf tenderness, cyanotic, pedal edema Additional comments: Left knee in dressing, creppe , not tender, no pedal edema, pulses present, chronic venous stasis changes. - Neurological Exam Neurological exam: Present: alert, CN II-XII intact, oriented X3, no focal deficits. Absent: pronater drift, facial droop, speech deficit - Skin Skin exam: Present: dry, intact Internal Medicine: Result - Labs CBC & Chem 7: 11/24/16 05:48 11/24/16 05:48 Labs: Short CBC 11/24/16 Range/Units 05:48 WBC 16.5 H (4.3-11.1) K/mcL Hgb 11.5 L (12.9-16.9) g/dL Hct 36.1 L (37.5-50.1) % Plt Count 232 (140-400) K/mcL Neutrophils # 15.5 H (1.6-8.9) K/mcL BMP 11/24/16 05:48 Sodium 135 L Potassium 4.2 Chloride 107 Carbon Dioxide 18 L BUN 63 H Creatinine 1.97 H Glucose 325 H Calcium 8.4 L Liver Function 11/24/16 Range/Units 05:48 Total Bilirubin 0.7 (0.2-1.2) mg/dL Direct Bilirubin 0.6 H (0.0-0.5) mg/dL AST 40 H (5-34) Units/L ALT 27 (0-55) Units/L Alkaline Phosphatase 118 (38-126) Units/L Albumin 1.6 L (3.5-5.0) g/dL - ABG Interpretation ABG results: ABG ABG pH 7.26 pH Units (7.32-7.45) L 11/22/16 18:50 ABG pCO2 44 mmHg (35-45) 11/22/16 18:50 ABG pO2 64 mmHg (85-104) L 11/22/16 18:50 ABG O2 Saturation 88 % (95-98) L 11/22/16 18:50 PT/INR, D-dimer PT 12.3 Seconds (9.4-12.1) H 11/23/16 07:38 Consult Discharge Plan - Plan Referrals: NO,PCP [Primary Care Provider] -
[2016-11-24] MEDS ORDERED: MOM Conc 10 ML UD.LIQ PO PRN (09:47)
[2016-11-24] MEDS ORDERED: D5% in Water 1,000 ML IVC PRN (09:47)
[2016-11-24] MEDS ORDERED: Ondansetron 4 MG/2 ML VIAL IVP PRN (09:47)
[2016-11-24] MEDS ORDERED: Dextrose Gel 15 GM PO PRN ×2 (09:47)
[2016-11-24] MEDS ORDERED: *HR* Dextrose 50 % in Water (Syg) 50 ML SYRINGE IVP PRN (09:47)
[2016-11-24] MEDS ORDERED: Sennosides 8.6 MG TABLET PO PRN (09:47)
[2016-11-24] MEDS ORDERED: Naloxone 0.4 MG/ML INJ IVP PRN (09:47)
[2016-11-24] MEDS ORDERED: Insulin LISPRO 300 UNITS/3 ML VIAL SQ SCH (12:00)
[2016-11-24] MEDS: Vancomycin 2,000 MG in D5% in Water 500 ML IVPB SCH (12:33)
[2016-11-24] MEDS ORDERED: Insulin DETEMIR 100 UNIT/ML X5UNITS SQ SCH ×2 (21:00)
[2016-11-25] MEDS: *HR* OxyCODONE Immed Rel 5 MG TABLET PO PRN ×3 (00:47→21:12)
[2016-11-25 02:13] LABS: Acinetobacter baumannii by PCR Not Detected (Not Detect); Candida albicans by PCR Not Detected (Not Detect); Candida glabrata by PCR Not Detected (Not Detect); Candida krusei by PCR Not Detected (Not Detect); Candida parapsilosis by PCR Not Detected (Not Detect); Candida tropicalis by PCR Not Detected (Not Detect); Enterococcus by PCR Not Detected (Not Detect); Escherichia coli by PCR Not Detected (Not Detect); Klebsiella oxytoca by PCR Not Detected (Not Detect); Klebsiella pneumoniae by PCR Not Detected (Not Detect); Pseudomonas aeruginosa by PCR Not Detected (Not Detect); Serratia marcescens by PCR Not Detected (Not Detect); Staphylococcus aureus by PCR ***DETECTED*** (Not Detect); Streptococcus agalactiae(B)PCR Not Detected (Not Detect); Streptococcus by PCR Not Detected (Not Detect); Streptococcus pneumoniae PCR Not Detected (Not Detect); Streptococcus pyogenes (A) PCR Not Detected (Not Detect); blaKPC Carbapenem-Resist Gene Not Detected (Not Detect); mecA Methicillin-Resist Gene ***DETECTED*** (Not Detect); vanA/B Vancomycin-Resist Genes Not Detected (Not Detect)
[2016-11-25 04:56] LABS: Basophils % 0.2 %; Eosinophils % 0.1 %; Hemoglobin 11.6 g/dL (12.9-16.9); Immature Granulocytes % 1.4 % (0-4); Immature Platelets 0.9 % (1.1-6.1); Lymphocytes # 0.8 K/mcL (0.6-4.6); Lymphocytes % 4.7 %; Mean Corpuscular HGB Conc 33.1 g/dL (31.6-35.5); Mean Corpuscular Hemoglobin 27.8 pg (28.0-33.3); Mean Corpuscular Volume 83.9 fL (83.0-100.0); Mean Platelet Volume 8.7 fL (9.4-12.4); Monocytes # 0.8 K/mcL (0.0-1.3); Monocytes % 5.2 %; Neutrophils # 14.1 K/mcL (1.6-8.9); Platelet Count 303 K/mcL (140-400); Red Blood Count 4.17 M/mcL (4.19-5.50); Red Cell Distribution Width 14.6 % (11.5-14.5); Segmented Neutrophils % 88.4 %
[2016-11-25 05:10] LABS: BUN/Creatinine Ratio 33 (6-26); Calcium 8.6 mg/dL (8.6-10.8); Carbon Dioxide 20 mEq/L (19-29); Chloride 107 mEq/L (98-109); Glucose 114 mg/dL (70-99); Osmolality,Calculated 293 (280-300); Potassium 3.5 mEq/L (3.5-4.5); Sodium 136 mEq/L (136-145); eGFR For African Americans > 60 (> 60); eGFR For Non-African Americans 58 (> 60)
[2016-11-25 05:11] LABS: Blood Urea Nitrogen 41 mg/dL (8-26)
[2016-11-25] MEDS: *HR* Heparin 5,000 UNIT/ML VIAL SQ SCH ×2 (06:26→17:56)
[2016-11-25] MEDS: Insulin LISPRO 300 UNITS/3 ML VIAL SQ SCH ×7 (07:55→19:51)
--- NOTE | 2016-11-25 08:03 | Internal Med Progress Note ---
Date of Encounter: 11/25/16 Time of Encounter: 08:10 - Assessment and plan (1) Sepsis Current Visit: Yes Status: Acute Assessment and plan: Patient presented with fall Work up on admission revealed FS >600, Leukocytosis, tachycardia, NIKKO, normal BP He decompensated to low blood pressures, responded to IVF hydration, discontinue IVF Lactate was normal on admission Patient remains afebrile , he is not hypothermic Patient not a known IVDU POD 2 s/p Left knee arthroscopic debridement Leukocytosis is improving BP is now normal, will discontinue IVF Urine culture from 11/21 showed MRSA sensitive to vancomycin, Bactrim, Tetracycline Rifampin, Nitrofurantoin and Linezolid Synovial fluid from left knee shows MRSA sensitive to vancomycin, Bactrim, Tetracycline Rifampin,Clindamycin and Linezolid Blood culture 11/12/16 GPC, MRSA, sensitivity is pending Repeat blood culture from 11/24/16 with GPC ECHO was normal, with no peripheral stigmata for infective endocarditis, will not obtain BERNARDO at this time The source of his sepsis is probably his L knee septic arthritis, and UTI Will continue Vancomycin-renally dose-Day 3. Vano trough noted Follow repeat cultures Duration on treatment will be likely 4-6 weeks May consider changing medication to less nephrotoxic medications when blood culture is finalized Patient will need a PICC line when blood culture are negative X2 Repeat blood culture scheduled for Sunday 11/26 Qualifiers: Sepsis type: methicillin resistant Staphylococcus aureus Qualified Code(s) : A41.02 - Sepsis due to Methicillin resistant Staphylococcus aureus (2) Bacteremia due to Gram-positive bacteria Current Visit: Yes Status: Acute Assessment and plan: MRSA bacteremia Management as above (3) Septic arthritis Current Visit: Yes Status: Acute Assessment and plan: As in sepsis POD 2 Continue IV antibiotics Qualifiers: Septic arthritis location: knee Septic arthritis organism: staphylococcal Laterality: left Qualified Code(s): M00.062 - Staphylococcal arthritis, left knee (4) Hyperosmolar non-ketotic state in patient with type 2 diabetes mellitus Current Visit: Yes Status: Acute Assessment and plan: Patient who presented with FS >600 and A1C of 12.2 FS is improving with current insulin regimen Continue to monitor FS Goal FS is 140-180 (5) SIRS (systemic inflammatory response syndrome) Current Visit: Yes Status: Acute Assessment and plan: As in sepsis (6) Hyperkalemia Current Visit: Yes Status: Resolved Assessment and plan: Secondary to NIKKO has resolved (7) Acute on chronic kidney failure Current Visit: Yes Status: Acute Assessment and plan: Secondary to severe dehydration possibly from HHS Improving, CR back to baseline MRSA UTI with pyelonephritis Renal USS with L perinephric fat stranding, no hydronephrosis Avoid nephrotoxins Patient was on HCTZ and Lisinopril at home, Continue to hold Continue to monitor renal function (8) DVT prophylaxis Current Visit: Yes Status: Acute Assessment and plan: Heparin SQ (9) CKD (chronic kidney disease), stage III Current Visit: Yes Status: Chronic Assessment and plan: Patient stated Baseline unknown Mgt as in NIKKO (10) Fall Current Visit: Yes Status: Acute Assessment and plan: PT/OT eval noted, for SNF/ECF at time of discharge Fall precautions Qualifiers: Encounter type: initial encounter Qualified Code(s): W19.XXXA - Unspecified fall, initial encounter (11) Respiratory failure Current Visit: Yes Status: Resolved Assessment and plan: Resolved Patient had transient hypoxia after opiate medication, resolved with narcan CXR done on admission and 11/22 with no infiltrates Qualifiers: Chronicity: acute Respiratory failure complication: hypoxia Qualified Code(s): J96.01 - Acute respiratory failure with hypoxia (12) Morbid obesity with BMI of 45.0-49.9, adult Current Visit: Yes Status: Chronic (13) Hypertension Current Visit: Yes Status: Chronic Assessment and plan: BP has improved with IVF Started on Norvasc Continue to hold ACEI/HCTZ due to NIKKO Qualifiers: Hypertension type: essential hypertension Qualified Code(s): I10 - Essential (primary) hypertension - Subjective Interval history: Seen and evaluated at bedside patient with CKD III, Morbid Obesity, Uncontrolled complicated DM, HTN, COPD, DJD He was admitted and being managed for HHS, MRSA bacteremia, L knee septic arthritis, MRSA UTI, NIKKO on CKD He is seen and evaluated at bedside, no new complains Leukocytosis is improving, NIKKO has resolved, creatinine is back to baseline He remains bacteremic, afebrile, with blood cultures from 11/24 growing GPC - Constitutional Vitals: Temp Pulse Resp BP Pulse Ox 97.6 F 82 18 153/73 95 11/25/16 07:03 11/25/16 07:03 11/25/16 07:03 11/25/16 07:03 11/25/16 07:03 General appearance: Present: A&O X 3, morbidly obese, pleasant, no acute distress, answers questions appropriately - Head Head exam: Present: atraumatic, normocephalic - Eye Eye exam: Present: PERRL, conjuntiva pink, sclera anicteric Pupils: Present: PERRL - Neck Neck exam general surgery: Present: supple, trachea midline. Absent: lymphadenopathy - Respiratory Respiratory exam: Present: CTAB. Absent: accessory muscle use, rales, rhonchi, wheezes - Cardiovascular Cardiovascular exam: Present: RRR, +S1, +S2. Absent: diastolic murmur, gallop, rubs, systolic murmur - GI/Abdominal GI/Abdominal exam: Present: normal bowel sounds, soft, no peritoneal signs. Absent: distended, tenderness - Extremities Exam Extremities exam: Present: warm, radial pulses palpable and symetrical. Absent : calf tenderness, cyanotic, pedal edema Additional comments: Left knee in dressing, creppe , not tender, no pedal edema, pulses present, chronic venous stasis changes. - Neurological Exam Neurological exam: Present: alert, CN II-XII intact, oriented X3, no focal deficits. Absent: pronater drift, facial droop, speech deficit - Skin Skin exam: Present: dry, intact Internal Medicine: Result - Labs CBC & Chem 7: 11/25/16 04:37 11/25/16 04:37 Labs: Short CBC 11/25/16 Range/Units 04:37 WBC 15.9 H (4.3-11.1) K/mcL Hgb 11.6 L (12.9-16.9) g/dL Hct 35.0 L (37.5-50.1) % Plt Count 303 (140-400) K/mcL Neutrophils # 14.1 H (1.6-8.9) K/mcL BMP 11/25/16 04:37 Sodium 136 Potassium 3.5 Chloride 107 Carbon Dioxide 20 BUN 41 H D Creatinine 1.23 Glucose 114 H Calcium 8.6 - ABG Interpretation ABG results: ABG ABG pH 7.26 pH Units (7.32-7.45) L 11/22/16 18:50 ABG pCO2 44 mmHg (35-45) 11/22/16 18:50 ABG pO2 64 mmHg (85-104) L 11/22/16 18:50 ABG O2 Saturation 88 % (95-98) L 11/22/16 18:50 PT/INR, D-dimer PT 12.3 Seconds (9.4-12.1) H 11/23/16 07:38 Consult Discharge Plan - Plan Referrals: NO,PCP [Primary Care Provider] -
[2016-11-25] MEDS: Gabapentin 300 MG CAPSULE PO SCH ×2 (08:04→19:58)
[2016-11-25] MEDS: Cholecalciferol (D-3) 1,000 UNIT TABLET PO SCH (08:04)
[2016-11-25] MEDS: Multivit/Ca/Min/Fe/FA 1 TAB TABLET PO SCH (08:04)
[2016-11-25] MEDS: Aspirin Enteric Coated 81 MG Tablet PO SCH (08:05)
[2016-11-25] MEDS: Nystatin POWDER 30 GM BOTTLE TP SCH ×3 (08:05→20:02)
[2016-11-25] MEDS: amLODIPine 5 MG TABLET PO SCH (11:08)
[2016-11-25] MEDS: Vancomycin 2,000 MG in D5% in Water 500 ML IVPB SCH (11:50)
[2016-11-25] MEDS: Lisinopril 20 MG TABLET PO SCH (19:58)
[2016-11-25] MEDS: Insulin DETEMIR 100 UNIT/ML X5UNITS SQ SCH (21:12)
[2016-11-25] MEDS: Temazepam 15 MG CAPSULE PO PRN (21:12)
[2016-11-26 05:06] LABS: Hematocrit 34.5 % (37.5-50.1); Hemoglobin 11.6 g/dL (12.9-16.9)
[2016-11-26] MEDS: *HR* Heparin 5,000 UNIT/ML VIAL SQ SCH ×2 (06:38→18:51)
[2016-11-26] MEDS: Aspirin Enteric Coated 81 MG Tablet PO SCH (08:23)
[2016-11-26] MEDS: Gabapentin 300 MG CAPSULE PO SCH ×2 (08:23→22:16)
[2016-11-26] MEDS: Insulin LISPRO 300 UNITS/3 ML VIAL SQ SCH ×6 (08:23→22:33)
[2016-11-26] MEDS: amLODIPine 5 MG TABLET PO SCH (08:24)
[2016-11-26] MEDS: Lisinopril 20 MG TABLET PO SCH (08:24)
[2016-11-26] MEDS: Cholecalciferol (D-3) 1,000 UNIT TABLET PO SCH (08:24)
[2016-11-26] MEDS: Multivit/Ca/Min/Fe/FA 1 TAB TABLET PO SCH (08:24)
[2016-11-26] MEDS: Nystatin POWDER 30 GM BOTTLE TP SCH ×3 (08:24→22:34)
--- NOTE | 2016-11-26 09:13 | Internal Med Progress Note ---
Date of Encounter: 11/26/16 Time of Encounter: 09:09 - Assessment and plan (1) Sepsis Current Visit: Yes Status: Acute Assessment and plan: Patient presented with fall Work up on admission revealed FS >600, Leukocytosis, tachycardia, NIKKO, normal BP He decompensated to low blood pressures, responded to IVF hydration, discontinue IVF Lactate was normal on admission Patient remains afebrile , he is not hypothermic Patient not a known IVDU POD 3 s/p Left knee arthroscopic debridement Leukocytosis is improving BP improved with IVF, IVF discontinued 11/24 Urine culture from 11/21 showed MRSA sensitive to vancomycin, Bactrim, Tetracycline Rifampin, Nitrofurantoin and Linezolid Synovial fluid from left knee shows MRSA sensitive to vancomycin, Bactrim, Tetracycline Rifampin,Clindamycin and Linezolid Blood culture 11/22/16 GPC, MRSA, Repeat blood culture from 11/24/16 with MRSA Blood culture from 11/25 with one bottle prelim negative Blood culture from today 11/26 pending ECHO was normal, with no peripheral stigmata for infective endocarditis, will not obtain BERNARDO at this time The source of his sepsis is probably his L knee septic arthritis, and UTI Will continue Vancomycin-renally dose-Day 4. Vano trough noted Follow repeat cultures Duration on treatment will be likely 4-6 weeks Patient will need a PICC line when blood culture are negative X2 Qualifiers: Sepsis type: methicillin resistant Staphylococcus aureus Qualified Code(s) : A41.02 - Sepsis due to Methicillin resistant Staphylococcus aureus (2) Bacteremia due to Gram-positive bacteria Current Visit: Yes Status: Acute Assessment and plan: MRSA bacteremia Management as above (3) Septic arthritis Current Visit: Yes Status: Acute Assessment and plan: As in sepsis POD 3 Continue IV antibiotics Qualifiers: Septic arthritis location: knee Septic arthritis organism: staphylococcal Laterality: left Qualified Code(s): M00.062 - Staphylococcal arthritis, left knee (4) Hyperosmolar non-ketotic state in patient with type 2 diabetes mellitus Current Visit: Yes Status: Acute Assessment and plan: Patient who presented with FS >600 and A1C of 12.2 FS is improving with current insulin regimen Continue to monitor FS, adjust insulin with FS Goal FS is 140-180 (5) SIRS (systemic inflammatory response syndrome) Current Visit: Yes Status: Acute Assessment and plan: As in sepsis (6) Hyperkalemia Current Visit: Yes Status: Resolved Assessment and plan: Secondary to NIKKO has resolved (7) Acute on chronic kidney failure Current Visit: Yes Status: Acute Assessment and plan: Secondary to severe dehydration possibly from HHS Improving, CR back to baseline MRSA UTI with pyelonephritis Renal USS with L perinephric fat stranding, no hydronephrosis Avoid nephrotoxins Patient was on HCTZ and Lisinopril at home, Continue to hold Continue to monitor renal function (8) DVT prophylaxis Current Visit: Yes Status: Acute Assessment and plan: Heparin SQ (9) CKD (chronic kidney disease), stage III Current Visit: Yes Status: Chronic Assessment and plan: Baseline unknown Mgt as in NIKKO (10) Fall Current Visit: Yes Status: Acute Assessment and plan: PT/OT eval noted, for SNF/ECF at time of discharge Fall precautions Qualifiers: Encounter type: initial encounter Qualified Code(s): W19.XXXA - Unspecified fall, initial encounter (11) Respiratory failure Current Visit: Yes Status: Resolved Assessment and plan: Resolved Patient had transient hypoxia after opiate medication, resolved with narcan CXR done on admission and 11/22 with no infiltrates Qualifiers: Chronicity: acute Respiratory failure complication: hypoxia Qualified Code(s): J96.01 - Acute respiratory failure with hypoxia (12) Morbid obesity with BMI of 45.0-49.9, adult Current Visit: Yes Status: Chronic (13) Hypertension Current Visit: Yes Status: Chronic Assessment and plan: BP has improved with IVF, IVF d/jamin Started on Norvasc and Lisnopril Continue to monitor Qualifiers: Hypertension type: essential hypertension Qualified Code(s): I10 - Essential (primary) hypertension - Subjective Interval history: Seen and evaluated at bedside 70 M with CKD III, Morbid Obesity, Uncontrolled complicated DM, HTN, COPD, DJD He was admitted and being managed for HHS, Sepsis with MRSA bacteremia, L knee septic arthritis, MRSA UTI, NIKKO on CKD He is seen and evaluated at bedside, no new complains Leukocytosis is improving, NIKKO has resolved, creatinine is back to baseline Blood cultures from 11/25-1 set preliinary negative Blood culture drawn today 01/26 His BP is better controlled now with Norvasc He has no new complains - Constitutional Vitals: Temp Pulse Resp BP Pulse Ox 98.0 F 88 18 143/84 96 11/26/16 07:23 11/26/16 07:23 11/26/16 07:23 11/26/16 07:23 11/26/16 07:23 General appearance: Present: A&O X 3, morbidly obese, pleasant, no acute distress, answers questions appropriately - Head Head exam: Present: atraumatic, normocephalic - Eye Eye exam: Present: PERRL, conjuntiva pink, sclera anicteric Pupils: Present: PERRL - Neck Neck exam general surgery: Present: supple, trachea midline. Absent: lymphadenopathy - Respiratory Respiratory exam: Present: CTAB. Absent: accessory muscle use, rales, rhonchi, wheezes - Cardiovascular Cardiovascular exam: Present: RRR, +S1, +S2. Absent: diastolic murmur, gallop, rubs, systolic murmur - GI/Abdominal GI/Abdominal exam: Present: normal bowel sounds, soft, no peritoneal signs. Absent: distended, tenderness - Extremities Exam Extremities exam: Present: warm, radial pulses palpable and symetrical. Absent : calf tenderness, cyanotic, pedal edema Additional comments: L knee in Creppe bandage, clean and dry - Neurological Exam Neurological exam: Present: alert, CN II-XII intact, oriented X3, no focal deficits. Absent: pronater drift, facial droop, speech deficit - Skin Skin exam: Present: dry Internal Medicine: Result - Labs CBC & Chem 7: 11/26/16 09:04 11/26/16 09:04 Labs: Short CBC 11/26/16 Range/Units 04:42 Hgb 11.6 L (12.9-16.9) g/dL Hct 34.5 L (37.5-50.1) % - ABG Interpretation ABG results: ABG ABG pH 7.26 pH Units (7.32-7.45) L 11/22/16 18:50 ABG pCO2 44 mmHg (35-45) 11/22/16 18:50 ABG pO2 64 mmHg (85-104) L 11/22/16 18:50 ABG O2 Saturation 88 % (95-98) L 11/22/16 18:50 PT/INR, D-dimer PT 12.3 Seconds (9.4-12.1) H 11/23/16 07:38 Consult Discharge Plan - Plan Referrals: Mercedez Harvey, PAC [Physician Implementation Specialist Payroll] - 12/05/16 10:00 am Bladimir Aguirre MD [Partnered Physician] - 01/02/17 3:55 pm Louise Hays MD [Partnered Physician] - 12/10/16 4:00 pm
[2016-11-26 09:44] LABS: Basophils % 0.3 %; Eosinophils % 0.2 %; Hematocrit 36.7 % (37.5-50.1); Hemoglobin 12.4 g/dL (12.9-16.9); Lymphocytes % 6.2 %; Mean Corpuscular HGB Conc 33.8 g/dL (31.6-35.5); Mean Corpuscular Hemoglobin 27.6 pg (28.0-33.3); Mean Corpuscular Volume 81.7 fL (83.0-100.0); Mean Platelet Volume 8.4 fL (9.4-12.4); Monocytes # 0.8 K/mcL (0.0-1.3); Monocytes % 4.9 %; Neutrophils # 13.3 K/mcL (1.6-8.9); Platelet Count 260 K/mcL (140-400); Red Blood Count 4.49 M/mcL (4.19-5.50); Red Cell Distribution Width 14.4 % (11.5-14.5); Segmented Neutrophils % 86.4 %
[2016-11-26] MEDS ORDERED: *HR* OxyCODONE/APAP 10/325 TABLET ONE (09:47)
[2016-11-26] MEDS ORDERED: *HR* OxyCODONE Immed Rel 5 MG TABLET ONE (09:52)
[2016-11-26] MEDS: *HR* OxyCODONE Immed Rel 5 MG TABLET PO PRN ×3 (09:55→22:16)
[2016-11-26 09:56] LABS: BUN/Creatinine Ratio 26 (6-26); Calcium 8.5 mg/dL (8.6-10.8); Carbon Dioxide 24 mEq/L (19-29); Chloride 103 mEq/L (98-109); Glucose 143 mg/dL (70-99); Osmolality,Calculated 285 (280-300); Potassium 3.6 mEq/L (3.5-4.5); Sodium 134 mEq/L (136-145); eGFR For African Americans > 60 (> 60); eGFR For Non-African Americans > 60 (> 60)
[2016-11-26 09:57] LABS: Blood Urea Nitrogen 24 mg/dL (8-26)
--- NOTE | 2016-11-26 11:22 | Infectious Disease Progress No ---
Date of Encounter: 11/26/16 Time of Encounter: 11:19 - Assessment and Plan (1) Sepsis Current Visit: Yes Status: Acute The patient had 2 SIRS criteria on admission. Likely secondary to bacteremia and left knee septic arthritis. Improved. White blood cell count trending down. Tachycardia resolved. The patient has been afebrile. Cultures drawn 11/22/16 are +2 out of 2 sets for MRSA. Repeat blood culture drawn 11/24/16 are positive 1/1 set. Repeat blood culture drawn 11/25/16 is NGTD. Repeat blood cultures x 2 sets in the AM. Qualifiers: Sepsis type: methicillin resistant Staphylococcus aureus Qualified Code(s) : A41.02 - Sepsis due to Methicillin resistant Staphylococcus aureus (2) Bacteremia due to Gram-positive bacteria Current Visit: Yes Status: Acute Causative organism: MRSA. Source likely left knee septic arthritis. Complicated due to seeding of the kidneys/urine. Blood cultures drawn 11/22/16 are +2 out of 2 sets for MRSA. Repeat blood culture drawn 11/24/16 are positive 1/1 set. Repeat blood culture drawn 11/25/16 is NGTD. Repeat blood cultures x 2 sets in the AM. The patient has no endocarditis stigmata noted on physical exam. He meets one major and one minor Modified Wagoner criteria at this point. TTE negative for valvular vegetations. Will need BERNARDO prior to discharge. Continue vancomycin IV. Pharmacy to dose. Goal trough approximately 15. Duration of treatment depends on the clinical picture, but likely 4 weeks given the complicated nature of the bacteremia. Await repeat blood cultures. Avoid the insertion of central venous access until repeat blood cultures are negative 48 hours. Monitor renal function and for drug toxicity and dose adjust antibiotics. Continue contact precautions per protocol. (3) Septic arthritis of knee, left Current Visit: Yes Status: Acute Location: Left knee. Etiology not entirely clear. The patient has no indwelling hardware. He denies any injury prior to the fall the day before admission. Causative organism MRSA. Left knee x-ray showed a small to moderate suprapatellar knee effusion. Status post arthrocentesis 11/21/16 in the emergency department. No sample was sent for cell count. Culture positive for MRSA. Orthopedics has been consulted. Status post arthroscopic washout 11/23/[address] Aguirre. Operative report reviewed. Intra-operative cultures positive for MRSA. ESR and CRP are markedly elevated. Continue antibiotics as above. Continue wound care and activity restrictions as outlined by the ortho team. Duration of treatment depends on the clinical picture. Typically, we would treat for two weeks with IV antibiotics followed by two weeks of orals, but due to the patient's complicated bacteremia, he will require a full four week course of IV antibiotics. Qualifiers: Septic arthritis organism: staphylococcal Qualified Code(s): M00.062 - Staphylococcal arthritis, left knee (4) Acute on chronic kidney failure Current Visit: Yes Status: Acute Resolved. Serum creatinine elevated at 2.48 on admission. Unfortunately, we have no prior lab results to which we can compare this number. It is possible that the patient has underlying CKD as well. Retroperitoneal ultrasound negative. Serum creatinine normalized. Continue to monitor. Avoid nephrotoxins as able. Dose adjust antibiotics and other medications based on creatinine clearance. (5) Asymptomatic bacteriuria Current Visit: Yes Status: Acute Urinalysis obtained in the emergency department shows trace leukocyte esterase, 5-15 white blood cells, but many epithelial cells. Urine culture is positive for MRSA. This is likely seeding of the kidneys/ urine. The patient has been asymptomatic. Normally, there would be no indication to treat, but given the patient's bacteremia he will require antibiotics. (6) Hyponatremia Current Visit: Yes Status: Acute Serum sodium level 128 on admission. Improved. Management per the primary team. (7) Hyperglycemia Current Visit: Yes Status: Acute Serum glucose greater than 600 on arrival. Likely multifactorial--> infectious process, poorly controlled diabetes, etc. Improved. Further management per the primary team. (8) Hyperkalemia Current Visit: Yes Status: Resolved Likely secondary to acute kidney injury. Resolved. (9) Diabetes mellitus type 2 in obese Current Visit: Yes Status: Acute Uncontrolled. Hemoglobin A1c 12.2. Recommend aggressive glucose monitoring and control to promote wound healing and prevent reinfection. (10) Morbid obesity with BMI of 45.0-49.9, adult Current Visit: Yes Status: Chronic - Subjective Interval history: Patient seen and examined. Weekend notes reviewed. No acute events noted. Patient resting in bed. Complains of pain in the left knee and back and states he is having a hard time getting comfortable. Denies fevers or chills. Denies chest pain, shortness of breath, or cough. Denies nausea, vomiting, or diarrhea. States his last BM was a few days ago. Elizalde catheter remains in place. Denies oral thrush or new skin lesions. Infect Dis PN-Objective Data - Labs CBC & Chem 7: 11/26/16 09:04 11/26/16 09:04 Labs: Laboratory Results - last 24 hr 11/25/16 11/25/16 11/25/16 06:59 10:53 11:05 WBC RBC Hgb Hct MCV MCH MCHC RDW Plt Count MPV Immature Gran % Seg Neutrophils % Lymphocytes % Monocytes % Eosinophils % Basophils % Neutrophils # Lymphocytes # Monocytes # Eosinophils # Basophils # Sodium Potassium Chloride Carbon Dioxide BUN Creatinine Est GFR ( Amer) Est GFR (Non-Af Amer) BUN/Creatinine Ratio Glucose POC Glucose 86 98 H Calculated Osmolality Calcium Vancomycin Trough 19.8 11/25/16 11/26/16 11/26/16 17:58 04:42 09:04 WBC 15.4 H RBC 4.49 Hgb 11.6 L 12.4 L Hct 34.5 L 36.7 L MCV 81.7 L MCH 27.6 L MCHC 33.8 RDW 14.4 Plt Count 260 MPV 8.4 L Immature Gran % 2.0 Seg Neutrophils % 86.4 Lymphocytes % 6.2 Monocytes % 4.9 Eosinophils % 0.2 Basophils % 0.3 Neutrophils # 13.3 H Lymphocytes # 1.0 Monocytes # 0.8 Eosinophils # 0.0 Basophils # 0.0 Sodium Potassium Chloride Carbon Dioxide BUN Creatinine Est GFR ( Amer) Est GFR (Non-Af Amer) BUN/Creatinine Ratio Glucose POC Glucose 178 H Calculated Osmolality Calcium Vancomycin Trough 11/26/16 09:04 WBC RBC Hgb Hct MCV MCH MCHC RDW Plt Count MPV Immature Gran % Seg Neutrophils % Lymphocytes % Monocytes % Eosinophils % Basophils % Neutrophils # Lymphocytes # Monocytes # Eosinophils # Basophils # Sodium 134 L Potassium 3.6 Chloride 103 Carbon Dioxide 24 BUN 24 D Creatinine 0.91 Est GFR ( Amer) > 60 Est GFR (Non-Af Amer) > 60 BUN/Creatinine Ratio 26 Glucose 143 H POC Glucose Calculated Osmolality 285 Calcium 8.5 L Vancomycin Trough Cultures: Cultures 11/25/16 04:37 Blood Culture - Preliminary Peripheral Venipuncture No growth. 11/23/16 16:43 Anaerobic Culture - Preliminary Left Knee At this time, no anaerobic growth is present. The culture will be finalized after 5 days of incubation. 11/24/16 05:48 Blood Culture - Final Peripheral Venipuncture Methicillin Resistant S.aureus 11/22/16 04:05 Blood Culture - Final Peripheral Venipuncture Methicillin Resistant S.aureus 11/22/16 04:12 Blood Culture - Final Peripheral Venipuncture Methicillin Resistant S.aureus 11/23/16 16:43 Wound Culture - Final Left Knee Methicillin Resistant S.aureus Serology 11/24/16 11/22/16 11/22/16 Range/Units 05:48 23:39 04:12 Urine Creatinine 208 mg/dL Urine Sodium 20.0 mEq/L Urine Urea Nitrogen 377 mg/dL A. baumannii (PCR) Not Detected Not Detected (Not Detect) Carol albicans (PCR) Not Detected Not Detected (Not Detect) C. glabrata (PCR) Not Detected Not Detected (Not Detect) C. krusei (PCR) Not Detected Not Detected (Not Detect) C. parapsilosis (PCR) Not Detected Not Detected (Not Detect) C. tropicalis (PCR) Not Detected Not Detected (Not Detect) Enterobacteriac sp PCR Not Detected Not Detected (Not Detect) E. cloacae complex PCR Not Detected Not Detected (Not Detect) Enterococcus sp PCR Not Detected Not Detected (Not Detect) E. coli (PCR) Not Detected Not Detected (Not Detect) H. influenzae (PCR) Not Detected Not Detected (Not Detect) Klebsiella oxytoca PCR Not Detected Not Detected (Not Detect) Klebsiella pneumoniae Not Detected Not Detected (Not Detect) List. monocytogenes PCR Not Detected Not Detected (Not Detect) N. meningitidis (PCR) Not Detected Not Detected (Not Detect) Proteus species (PCR) Not Detected Not Detected (Not Detect) Serratia marcescens PCR Not Detected Not Detected (Not Detect) Staphylococcus sp PCR DETECTED A DETECTED A (Not Detect) Staph aureus (PCR) DETECTED A DETECTED A (Not Detect) mecA-Methicil Res Gene DETECTED A DETECTED A (Not Detect) Streptococcus sp PCR Not Detected Not Detected (Not Detect) Group A Strep DNA Not Detected Not Detected (Not Detect) Group B Strep (PCR) Not Detected Not Detected (Not Detect) Strep pneumoniae (PCR) Not Detected Not Detected (Not Detect) P. aeruginosa (PCR) Not Detected Not Detected (Not Detect) Steve/B-Vanco Res Genes Not Detected N/A (Not Detect) KPC (blaKPC) Detect PCR Not Detected N/A (Not Detect) Exam - Constitutional Vitals: Temp Pulse Resp BP Pulse Ox 98.0 F 88 18 143/84 96 11/26/16 07:23 11/26/16 07:23 11/26/16 07:23 11/26/16 07:23 11/26/16 07:23 General appearance: cooperative, morbidly obese, no acute distress - Head Head exam: Present: atraumatic, normal inspection, normocephalic - Eye Eye exam: Present: EOMI, normal appearance, PERRL Pupils: Present: normal accommodation Additional comments: No subconjunctival hemorrhage noted. - ENT ENT exam: Present: mucous membranes moist Additional comments: Poor dentition noted. - Neck Neck exam: Present: normal inspection - Respiratory Respiratory exam: Present: CTAB. Absent: rales, respiratory distress, rhonchi, wheezes - Cardiovascular Cardiovascular exam: Present: RRR, +S1, +S2 - GI/Abdominal GI/Abdominal exam: Present: distended (obese), normal bowel sounds, soft. Absent: tenderness Additional comments: Elizalde catheter noted to be draining clear yellow urine. - Extremities Exam Extremities exam: Present: joint swelling (left knee), pedal edema (1+ LLE), tenderness (left knee) Additional comments: Left knee ROM limited. Post-op dressing in place and C/D/I. - Neurological Exam Neurological exam: Present: alert, oriented X3, no focal deficits - Psychiatric Psychiatric exam: Present: normal affect, normal mood - Skin Skin exam: Present: dry, intact, normal color, warm Consult Discharge Plan - Plan Referrals: NO,PCP [Primary Care Provider] - - Attending Attestation I examined this patient and my medical decision-making was reviewed with the SUPERVISOR INTERMEDIATES/PA/Advanced Practice Nurse/Resident Physician. I agree with the documented findings, disposition and treatment plan as described except to the extent set forth below. Patient seen and examined, seems to be doing okay. Has some discomfort in his left knee. He is also constipated and had a bowel movement in a couple days. Discussed with nursing staff they will put him on a bedpan and he also needs to be moved. Kidney function seems to be improving need to monitor vancomycin trough closely. Discussed with the shoe caser regarding placement. We'll likely need vancomycin every 12 but not sure.
[2016-11-26] MEDS: Vancomycin 2,000 MG in D5% in Water 500 ML IVPB SCH (12:33)
[2016-11-26] MEDS: Temazepam 15 MG CAPSULE PO PRN (22:19)
[2016-11-26] MEDS: Insulin DETEMIR 100 UNIT/ML X5UNITS SQ SCH (22:34)
[2016-11-27] MEDS: *HR* OxyCODONE Immed Rel 5 MG TABLET PO PRN ×2 (05:43→17:28)
[2016-11-27] MEDS: *HR* Heparin 5,000 UNIT/ML VIAL SQ SCH ×2 (05:49→17:27)
[2016-11-27] MEDS: Multivit/Ca/Min/Fe/FA 1 TAB TABLET PO SCH (08:08)
[2016-11-27] MEDS: Aspirin Enteric Coated 81 MG Tablet PO SCH (08:08)
[2016-11-27] MEDS: Cholecalciferol (D-3) 1,000 UNIT TABLET PO SCH (08:09)
[2016-11-27] MEDS: amLODIPine 5 MG TABLET PO SCH (08:09)
[2016-11-27] MEDS: Lisinopril 20 MG TABLET PO SCH (08:09)
[2016-11-27] MEDS: Gabapentin 300 MG CAPSULE PO SCH ×2 (08:10→21:40)
[2016-11-27] MEDS: Nystatin POWDER 30 GM BOTTLE TP SCH ×3 (08:17→21:47)
[2016-11-27 09:35] LABS: Basophils # 0.1 K/mcL (0.0-0.2); Basophils % 0.3 %; Eosinophils # 0.1 K/mcL (0.0-0.6); Eosinophils % 0.3 %; Hematocrit 35.2 % (37.5-50.1); Hemoglobin 12.1 g/dL (12.9-16.9); Immature Granulocytes % 2.8 % (0-4); Lymphocytes # 0.9 K/mcL (0.6-4.6); Lymphocytes % 6.3 %; Mean Corpuscular HGB Conc 34.4 g/dL (31.6-35.5); Mean Corpuscular Hemoglobin 28.1 pg (28.0-33.3); Mean Corpuscular Volume 81.7 fL (83.0-100.0); Mean Platelet Volume 8.9 fL (9.4-12.4); Monocytes # 0.8 K/mcL (0.0-1.3); Monocytes % 5.2 %; Neutrophils # 12.5 K/mcL (1.6-8.9); Platelet Count 296 K/mcL (140-400); Red Blood Count 4.31 M/mcL (4.19-5.50); Red Cell Distribution Width 14.5 % (11.5-14.5); Segmented Neutrophils % 85.1 %
--- NOTE | 2016-11-27 09:42 | Infectious Disease Progress No ---
Date of Encounter: 11/27/16 Time of Encounter: 09:40 - Assessment and Plan (1) Sepsis Current Visit: Yes Status: Acute The patient had 2 SIRS criteria on admission. Likely secondary to bacteremia and left knee septic arthritis. Improved. White blood cell count trending down. Tachycardia resolved. The patient has been afebrile. Cultures drawn 11/22/16 are +2 out of 2 sets for MRSA. Repeat blood culture drawn 11/24/16 are positive 1/1 set. Repeat blood culture drawn 11/25/16 is NGTD. Additional blood culture drawn 11/26/16 is NGTD. Additional two sets of blood cultures drawn this AM are pending. Qualifiers: Sepsis type: methicillin resistant Staphylococcus aureus Qualified Code(s) : A41.02 - Sepsis due to Methicillin resistant Staphylococcus aureus (2) Bacteremia due to Gram-positive bacteria Current Visit: Yes Status: Acute Causative organism: MRSA. Source likely left knee septic arthritis. Complicated due to seeding of the kidneys/urine. Blood cultures drawn 11/22/16 are +2 out of 2 sets for MRSA. Repeat blood culture drawn 11/24/16 are positive 1/1 set. Repeat blood culture drawn 11/25/16 is NGTD. Additional blood culture drawn 11/26/16 is NGTD. Additional two sets of blood cultures drawn this AM are pending. The patient has no endocarditis stigmata noted on physical exam. He meets one major and one minor Modified [place] criteria at this point. TTE negative for valvular vegetations. Will need BERNARDO prior to discharge. Continue vancomycin IV. Pharmacy to dose. Goal trough approximately 15. Most recent VT 14. Due to the patient's improving renal function, will need to make sure we dose-adjust his Vancomycin appropriately to maintain therapeutic levels. Will discuss with pharmacy. Duration of treatment depends on the clinical picture, but likely 4 weeks given the complicated nature of the bacteremia. Await repeat blood cultures. Avoid the insertion of central venous access until repeat blood cultures are negative 48 hours. Monitor renal function and for drug toxicity and dose adjust antibiotics. Continue contact precautions per protocol. (3) Septic arthritis of knee, left Current Visit: Yes Status: Acute Location: Left knee. Etiology not entirely clear. The patient has no indwelling hardware. He denies any injury prior to the fall the day before admission. Causative organism MRSA. Left knee x-ray showed a small to moderate suprapatellar knee effusion. Status post arthrocentesis 11/21/16 in the emergency department. No sample was sent for cell count. Culture positive for MRSA. Orthopedics has been consulted. Status post arthroscopic washout 11/23/[address] Aguirre. Operative report reviewed. Intra-operative cultures positive for MRSA. ESR and CRP are markedly elevated. Continue antibiotics as above. Continue wound care and activity restrictions as outlined by the ortho team. Duration of treatment depends on the clinical picture. Typically, we would treat for two weeks with IV antibiotics followed by two weeks of orals, but due to the patient's complicated bacteremia, he will require a full four week course of IV antibiotics. Qualifiers: Septic arthritis organism: staphylococcal Qualified Code(s): M00.062 - Staphylococcal arthritis, left knee (4) Acute on chronic kidney failure Current Visit: Yes Status: Acute Resolved. Serum creatinine elevated at 2.48 on admission. Unfortunately, we have no prior lab results to which we can compare this number. It is possible that the patient has underlying CKD as well. Retroperitoneal ultrasound negative. Serum creatinine normalized. Continue to monitor. Avoid nephrotoxins as able. Dose adjust antibiotics and other medications based on creatinine clearance. (5) Asymptomatic bacteriuria Current Visit: Yes Status: Acute Urinalysis obtained in the emergency department shows trace leukocyte esterase, 5-15 white blood cells, but many epithelial cells. Urine culture is positive for MRSA. This is likely seeding of the kidneys/ urine. The patient has been asymptomatic. Normally, there would be no indication to treat, but given the patient's bacteremia he will require antibiotics. (6) Hyponatremia Current Visit: Yes Status: Acute Serum sodium level 128 on admission. Improved. Management per the primary team. (7) Hyperglycemia Current Visit: Yes Status: Acute Serum glucose greater than 600 on arrival. Likely multifactorial--> infectious process, poorly controlled diabetes, etc. Improved. Further management per the primary team. (8) Hyperkalemia Current Visit: Yes Status: Resolved Likely secondary to acute kidney injury. Resolved. (9) Diabetes mellitus type 2 in obese Current Visit: Yes Status: Acute Uncontrolled. Hemoglobin A1c 12.2. Recommend aggressive glucose monitoring and control to promote wound healing and prevent reinfection. (10) Morbid obesity with BMI of 45.0-49.9, adult Current Visit: Yes Status: Chronic - Subjective Interval history: Patient seen and examined. No acute events noted overnight. Patient resting in bed. Complains of pain in the left knee and back, but states it seems a little better today. Denies fevers or chills. Denies chest pain, shortness of breath, or cough. Denies nausea, vomiting, or diarrhea. States his last BM was a few days ago. Elizalde catheter remains in place. Denies oral thrush or new skin lesions. Infect Dis PN-Objective Data - Labs CBC & Chem 7: 11/27/16 09:16 11/27/16 09:16 Labs: Laboratory Results - last 24 hr 11/25/16 11/26/16 11/26/16 19:47 07:21 09:04 WBC 15.4 H RBC 4.49 Hgb 12.4 L Hct 36.7 L MCV 81.7 L MCH 27.6 L MCHC 33.8 RDW 14.4 Plt Count 260 MPV 8.4 L Immature Gran % 2.0 Seg Neutrophils % 86.4 Lymphocytes % 6.2 Monocytes % 4.9 Eosinophils % 0.2 Basophils % 0.3 Neutrophils # 13.3 H Lymphocytes # 1.0 Monocytes # 0.8 Eosinophils # 0.0 Basophils # 0.0 Sodium Potassium Chloride Carbon Dioxide BUN Creatinine Est GFR ( Amer) Est GFR (Non-Af Amer) BUN/Creatinine Ratio Glucose POC Glucose 158 H 81 Calculated Osmolality Calcium 11/26/16 11/26/16 11/26/16 09:04 11:33 16:18 WBC RBC Hgb Hct MCV MCH MCHC RDW Plt Count MPV Immature Gran % Seg Neutrophils % Lymphocytes % Monocytes % Eosinophils % Basophils % Neutrophils # Lymphocytes # Monocytes # Eosinophils # Basophils # Sodium 134 L Potassium 3.6 Chloride 103 Carbon Dioxide 24 BUN 24 D Creatinine 0.91 Est GFR ( Amer) > 60 Est GFR (Non-Af Amer) > 60 BUN/Creatinine Ratio 26 Glucose 143 H POC Glucose 169 H 186 H Calculated Osmolality 285 Calcium 8.5 L 11/26/16 11/27/16 11/27/16 20:28 08:58 09:16 WBC 14.7 H RBC 4.31 Hgb 12.1 L Hct 35.2 L MCV 81.7 L MCH 28.1 MCHC 34.4 RDW 14.5 Plt Count 296 MPV 8.9 L Immature Gran % 2.8 Seg Neutrophils % 85.1 Lymphocytes % 6.3 Monocytes % 5.2 Eosinophils % 0.3 Basophils % 0.3 Neutrophils # 12.5 H Lymphocytes # 0.9 Monocytes # 0.8 Eosinophils # 0.1 Basophils # 0.1 Sodium Potassium Chloride Carbon Dioxide BUN Creatinine Est GFR ( Amer) Est GFR (Non-Af Amer) BUN/Creatinine Ratio Glucose POC Glucose 266 H 178 H Calculated Osmolality Calcium Cultures: Cultures 11/26/16 04:42 Blood Culture - Preliminary Peripheral Venipuncture No growth. 11/23/16 16:43 Anaerobic Culture - Final Left Knee No anaerobes were recovered. 11/25/16 04:37 Blood Culture - Preliminary Peripheral Venipuncture No growth. 11/24/16 05:48 Blood Culture - Final Peripheral Venipuncture Methicillin Resistant S.aureus 11/22/16 04:05 Blood Culture - Final Peripheral Venipuncture Methicillin Resistant S.aureus 11/22/16 04:12 Blood Culture - Final Peripheral Venipuncture Methicillin Resistant S.aureus 11/23/16 16:43 Wound Culture - Final Left Knee Methicillin Resistant S.aureus Serology 11/24/16 11/22/16 11/22/16 Range/Units 05:48 23:39 04:12 Urine Creatinine 208 mg/dL Urine Sodium 20.0 mEq/L Urine Urea Nitrogen 377 mg/dL A. baumannii (PCR) Not Detected Not Detected (Not Detect) Carol albicans (PCR) Not Detected Not Detected (Not Detect) C. glabrata (PCR) Not Detected Not Detected (Not Detect) C. krusei (PCR) Not Detected Not Detected (Not Detect) C. parapsilosis (PCR) Not Detected Not Detected (Not Detect) C. tropicalis (PCR) Not Detected Not Detected (Not Detect) Enterobacteriac sp PCR Not Detected Not Detected (Not Detect) E. cloacae complex PCR Not Detected Not Detected (Not Detect) Enterococcus sp PCR Not Detected Not Detected (Not Detect) E. coli (PCR) Not Detected Not Detected (Not Detect) H. influenzae (PCR) Not Detected Not Detected (Not Detect) Klebsiella oxytoca PCR Not Detected Not Detected (Not Detect) Klebsiella pneumoniae Not Detected Not Detected (Not Detect) List. monocytogenes PCR Not Detected Not Detected (Not Detect) N. meningitidis (PCR) Not Detected Not Detected (Not Detect) Proteus species (PCR) Not Detected Not Detected (Not Detect) Serratia marcescens PCR Not Detected Not Detected (Not Detect) Staphylococcus sp PCR DETECTED A DETECTED A (Not Detect) Staph aureus (PCR) DETECTED A DETECTED A (Not Detect) mecA-Methicil Res Gene DETECTED A DETECTED A (Not Detect) Streptococcus sp PCR Not Detected Not Detected (Not Detect) Group A Strep DNA Not Detected Not Detected (Not Detect) Group B Strep (PCR) Not Detected Not Detected (Not Detect) Strep pneumoniae (PCR) Not Detected Not Detected (Not Detect) P. aeruginosa (PCR) Not Detected Not Detected (Not Detect) Steve/B-Vanco Res Genes Not Detected N/A (Not Detect) KPC (blaKPC) Detect PCR Not Detected N/A (Not Detect) Exam - Constitutional Vitals: Temp Pulse Resp BP Pulse Ox 97.4 F L 82 18 149/90 93 11/27/16 04:37 11/27/16 04:37 11/27/16 04:37 11/27/16 04:37 11/27/16 04:37 General appearance: cooperative, morbidly obese, no acute distress - Head Head exam: Present: atraumatic, normal inspection, normocephalic - Eye Eye exam: Present: EOMI, normal appearance, PERRL Pupils: Present: normal accommodation Additional comments: No subconjunctival hemorrhage noted. - ENT ENT exam: Present: mucous membranes moist - Neck Neck exam: Present: normal inspection - Respiratory Respiratory exam: Present: CTAB. Absent: rales, respiratory distress, rhonchi, wheezes - Cardiovascular Cardiovascular exam: Present: RRR, +S1, +S2 - GI/Abdominal GI/Abdominal exam: Present: distended (obese), normal bowel sounds, soft. Absent: tenderness Additional comments: Elizalde catheter noted to be draining clear yellow urine. - Extremities Exam Extremities exam: Present: joint swelling (Left knee), pedal edema (1+ LLE), tenderness (Left knee) Additional comments: Left knee post-op dressing C/D/I. ROM limited due to pain. Tenderness noted on palpation. - Neurological Exam Neurological exam: Present: alert, oriented X3, no focal deficits - Psychiatric Psychiatric exam: Present: normal affect, normal mood - Skin Skin exam: Present: dry, intact, normal color, warm Additional comments: No endocarditis stigmata noted. Consult Discharge Plan - Plan Referrals: Mercedez Harvey PAC [Physician Sourcing Specialist] - 12/05/16 10:00 am Bladimir Aguirre MD [Partnered Physician] - 01/02/17 3:55 pm Louise Hays MD [Partnered Physician] - 12/10/16 4:00 pm - Attending Attestation I examined this patient and my medical decision-making was reviewed with the PRIVACY MANAGER/PA/Advanced Practice Nurse/Resident Physician. I agree with the documented findings, disposition and treatment plan as described except to the extent set forth below.
[2016-11-27 09:45] LABS: BUN/Creatinine Ratio 23 (6-26); Blood Urea Nitrogen 23 mg/dL (8-26); Calcium 8.5 mg/dL (8.6-10.8); Carbon Dioxide 27 mEq/L (19-29); Chloride 102 mEq/L (98-109); Glucose 198 mg/dL (70-99); Osmolality,Calculated 289 (280-300); Potassium 3.3 mEq/L (3.5-4.5); Sodium 135 mEq/L (136-145); eGFR For African Americans > 60 (> 60); eGFR For Non-African Americans > 60 (> 60)
[2016-11-27] MEDS: Insulin LISPRO 300 UNITS/3 ML VIAL SQ SCH ×4 (12:17→21:41)
[2016-11-27] MEDS: Vancomycin 1,500 MG in D5% in Water 250 ML IVPB SCH (13:16)
--- NOTE | 2016-11-27 18:04 | Internal Med Progress Note ---
Date of Encounter: 11/27/16 Time of Encounter: 18:02 - Assessment and plan (1) Acute on chronic kidney failure Current Visit: Yes Status: Acute (2) Hyperosmolar non-ketotic state in patient with type 2 diabetes mellitus Current Visit: Yes Status: Acute (3) Bacteremia due to Gram-positive bacteria Current Visit: Yes Status: Acute (4) Septic arthritis of knee, left Current Visit: Yes Status: Acute Qualifiers: Septic arthritis organism: staphylococcal Qualified Code(s): M00.062 - Staphylococcal arthritis, left knee (5) Diabetes mellitus type 2 in obese Current Visit: Yes Status: Acute (6) Hypertension Current Visit: Yes Status: Chronic Qualifiers: Hypertension type: essential hypertension Qualified Code(s): I10 - Essential (primary) hypertension - Subjective Interval history: Chart reviewed. Patient Ashvin Arceo is a 70-year-old male was transferred our floor. Patient came in after he had a fall and hurt his left knee. He was diagnosed with the osteomyelitis of left knee. Dr. Saldivar orthopedic surgeon was consulted who did laparoscopic the Manuel. Infectious disease is involved. Patient last blood culture did not show any bacteria therefore it is planned to put a PICC line and after that he can be discharged for 4 weeks of IV antibiotic treatment. Infectious disease has mentioned that they want to get BERNARDO to rule out endocarditis. Clinically he seems stable in this regard. - Constitutional Vitals: Temp Pulse Resp BP Pulse Ox 98.2 F 92 16 160/96 94 11/27/16 16:07 11/27/16 16:07 11/27/16 16:07 11/27/16 16:07 11/27/16 16:07 General appearance: Present: disheveled, A&O X 3, morbidly obese, pleasant, no acute distress, answers questions appropriately - Head Head exam: Present: atraumatic, normocephalic - Eye Eye exam: Present: PERRL, conjuntiva pink, sclera anicteric Pupils: Present: PERRL - Neck Neck exam general surgery: Present: supple, trachea midline. Absent: lymphadenopathy - Respiratory Respiratory exam: Present: CTAB. Absent: accessory muscle use, rales, rhonchi, wheezes - Cardiovascular Cardiovascular exam: Present: RRR, +S1, +S2. Absent: diastolic murmur, gallop, rubs, systolic murmur - GI/Abdominal GI/Abdominal exam: Present: normal bowel sounds, soft, no peritoneal signs. Absent: distended, tenderness - Extremities Exam Extremities exam: Present: warm, radial pulses palpable and symetrical. Absent : calf tenderness, cyanotic, pedal edema Additional comments: Knee examination is per orthopedics - Neurological Exam Neurological exam: Present: CN II-XII intact, oriented X3, no focal deficits. Absent: pronater drift, facial droop, speech deficit - Skin Skin exam: Present: dry, intact Internal Medicine: Result - Labs CBC & Chem 7: 11/27/16 09:16 11/27/16 09:16 Labs: Short CBC 11/27/16 Range/Units 09:16 WBC 14.7 H (4.3-11.1) K/mcL Hgb 12.1 L (12.9-16.9) g/dL Hct 35.2 L (37.5-50.1) % Plt Count 296 (140-400) K/mcL Neutrophils # 12.5 H (1.6-8.9) K/mcL BMP 11/27/16 09:16 Sodium 135 L Potassium 3.3 L Chloride 102 Carbon Dioxide 27 BUN 23 Creatinine 0.98 Glucose 198 H Calcium 8.5 L - ABG Interpretation ABG results: ABG ABG pH 7.26 pH Units (7.32-7.45) L 11/22/16 18:50 ABG pCO2 44 mmHg (35-45) 11/22/16 18:50 ABG pO2 64 mmHg (85-104) L 11/22/16 18:50 ABG O2 Saturation 88 % (95-98) L 11/22/16 18:50 PT/INR, D-dimer PT 12.3 Seconds (9.4-12.1) H 11/23/16 07:38 Consult Discharge Plan - Plan Referrals: Mercedez Harvey PAC [Physician Solar Tech] - 12/05/16 10:00 am Bladimir Aguirre MD [Partnered Physician] - 01/02/17 3:55 pm Louise Hays MD [Partnered Physician] - 12/10/16 4:00 pm
[2016-11-27] MEDS: Insulin DETEMIR 100 UNIT/ML X5UNITS SQ SCH (21:41)
[2016-11-28 04:20] LABS: Acinetobacter baumannii by PCR Not Detected (Not Detect); Candida albicans by PCR Not Detected (Not Detect); Candida glabrata by PCR Not Detected (Not Detect); Candida krusei by PCR Not Detected (Not Detect); Candida parapsilosis by PCR Not Detected (Not Detect); Candida tropicalis by PCR Not Detected (Not Detect); Enterococcus by PCR Not Detected (Not Detect); Escherichia coli by PCR Not Detected (Not Detect); Klebsiella oxytoca by PCR Not Detected (Not Detect); Klebsiella pneumoniae by PCR Not Detected (Not Detect); Pseudomonas aeruginosa by PCR Not Detected (Not Detect); Serratia marcescens by PCR Not Detected (Not Detect); Staphylococcus aureus by PCR ***DETECTED*** (Not Detect); Streptococcus agalactiae(B)PCR Not Detected (Not Detect); Streptococcus by PCR Not Detected (Not Detect); Streptococcus pneumoniae PCR Not Detected (Not Detect); Streptococcus pyogenes (A) PCR Not Detected (Not Detect); mecA Methicillin-Resist Gene ***DETECTED*** (Not Detect)
[2016-11-28] MEDS: *HR* Heparin 5,000 UNIT/ML VIAL SQ SCH ×2 (04:59→18:34)
[2016-11-28] MEDS: Insulin LISPRO 300 UNITS/3 ML VIAL SQ SCH ×4 (08:50→22:18)
[2016-11-28] MEDS: *HR* OxyCODONE Immed Rel 5 MG TABLET PO PRN (08:51)
[2016-11-28] MEDS: Cholecalciferol (D-3) 1,000 UNIT TABLET PO SCH (08:52)
[2016-11-28] MEDS: amLODIPine 5 MG TABLET PO SCH (08:52)
[2016-11-28] MEDS: Lisinopril 20 MG TABLET PO SCH (08:52)
[2016-11-28] MEDS: Multivit/Ca/Min/Fe/FA 1 TAB TABLET PO SCH (08:52)
[2016-11-28] MEDS: Gabapentin 300 MG CAPSULE PO SCH ×2 (08:53→22:14)
[2016-11-28] MEDS: Aspirin Enteric Coated 81 MG Tablet PO SCH (08:53)
[2016-11-28] MEDS: Nystatin POWDER 30 GM BOTTLE TP SCH ×3 (08:53→22:14)
[2016-11-28] MEDS: Vancomycin 1,500 MG in D5% in Water 250 ML IVPB SCH (13:09)
--- NOTE | 2016-11-28 13:30 | Infectious Disease Progress No ---
Date of Encounter: 11/28/16 Time of Encounter: 13:28 - Assessment and Plan (1) Sepsis Current Visit: Yes Status: Acute The patient had 2 SIRS criteria on admission. Likely secondary to bacteremia and left knee septic arthritis. Improved. White blood cell count trending down. Tachycardia resolved. The patient has been afebrile. Cultures drawn 11/22/16 are +2 out of 2 sets for MRSA. Repeat blood culture drawn 11/24/16 are positive 1/1 set. Repeat blood culture drawn 11/25/16 is NGTD. Additional blood culture drawn 11/26/16 is positive 1/1 sets for MRSA. Additional two sets of blood cultures drawn 11/27/16 are pending. Qualifiers: Sepsis type: methicillin resistant Staphylococcus aureus Qualified Code(s) : A41.02 - Sepsis due to Methicillin resistant Staphylococcus aureus (2) Bacteremia due to Gram-positive bacteria Current Visit: Yes Status: Acute Causative organism: MRSA. Source likely left knee septic arthritis. Complicated due to seeding of the kidneys/urine. Blood cultures drawn 11/22/16 are +2 out of 2 sets for MRSA. Repeat blood culture drawn 11/24/16 are positive 1/1 set. Repeat blood culture drawn 11/25/16 is positive 1/1 sets. Additional blood culture drawn 11/26/16 is NGTD. Additional two sets of blood cultures drawn 11/27/16 are pending. The patient has no endocarditis stigmata noted on physical exam. He meets one major and one minor Modified Crane criteria at this point. TTE negative for valvular vegetations. Will need BERNARDO prior to discharge. The patient continues to have persistent bacteremia. Etiology unclear, but could be an issue with source control vs. sub-therapeutic serum vanc levels due to patient's improving renal function vs. Vanc KENNY 2. Continue vancomycin IV for now. Pharmacy to dose. Goal trough approximately 15. Most recent VT 14. Due to the patient's improving renal function, will need to make sure we dose-adjust his Vancomycin appropriately to maintain therapeutic levels. Discussed with Gabrielle Clinical PharmD yesterday. Will discuss again today. If patient continues to bacteremic, we may need to consider switching antibiotics, but will continue Vancomycin for now. Duration of treatment depends on the clinical picture, but likely 4 weeks given the complicated nature of the bacteremia. Await repeat blood cultures. Avoid the insertion of central venous access until repeat blood cultures are negative 48 hours. Monitor renal function and for drug toxicity and dose adjust antibiotics. Continue contact precautions per protocol. (3) Septic arthritis of knee, left Current Visit: Yes Status: Acute Location: Left knee. Etiology not entirely clear. The patient has no indwelling hardware. He denies any injury prior to the fall the day before admission. Causative organism MRSA. Left knee x-ray showed a small to moderate suprapatellar knee effusion. Status post arthrocentesis 11/21/16 in the emergency department. No sample was sent for cell count. Culture positive for MRSA. Orthopedics has been consulted. Status post arthroscopic washout 11/23/[address] Aguirre. Operative report reviewed. Intra-operative cultures positive for MRSA. ESR and CRP are markedly elevated. Repeat CRP is improving, but the patient continues to complain of severe pain. There is some warmth and erythema noted this morning. Given the patient's persistent bacteremia we will ask ortho to re-evaluate. Spoke with Juanita RENO with the ortho team. Continue antibiotics as above. Continue wound care and activity restrictions as outlined by the ortho team. Duration of treatment depends on the clinical picture. Typically, we would treat for two weeks with IV antibiotics followed by two weeks of orals, but due to the patient's complicated bacteremia, he will require a full four week course of IV antibiotics. Qualifiers: Septic arthritis organism: staphylococcal Qualified Code(s): M00.062 - Staphylococcal arthritis, left knee (4) Acute on chronic kidney failure Current Visit: Yes Status: Acute Resolved. Serum creatinine elevated at 2.48 on admission. Unfortunately, we have no prior lab results to which we can compare this number. It is possible that the patient has underlying CKD as well. Retroperitoneal ultrasound negative. Serum creatinine normalized. Continue to monitor. Avoid nephrotoxins as able. Dose adjust antibiotics and other medications based on creatinine clearance. (5) Asymptomatic bacteriuria Current Visit: Yes Status: Acute Urinalysis obtained in the emergency department shows trace leukocyte esterase, 5-15 white blood cells, but many epithelial cells. Urine culture is positive for MRSA. This is likely seeding of the kidneys/ urine. The patient has been asymptomatic. Normally, there would be no indication to treat, but given the patient's bacteremia he will require antibiotics. (6) Hyponatremia Current Visit: Yes Status: Acute Serum sodium level 128 on admission. Improved. Management per the primary team. (7) Hyperglycemia Current Visit: Yes Status: Acute Serum glucose greater than 600 on arrival. Likely multifactorial--> infectious process, poorly controlled diabetes, etc. Improved. Further management per the primary team. (8) Hyperkalemia Current Visit: Yes Status: Resolved Likely secondary to acute kidney injury. Resolved. (9) Diabetes mellitus type 2 in obese Current Visit: Yes Status: Acute Uncontrolled. Hemoglobin A1c 12.2. Recommend aggressive glucose monitoring and control to promote wound healing and prevent reinfection. (10) Morbid obesity with BMI of 45.0-49.9, adult Current Visit: Yes Status: Chronic - Subjective Interval history: Patient seen and examined. No acute events noted overnight. Patient resting in bed. Complains of pain in the left knee and back, not much better today than yesterday. Denies fevers or chills. Denies chest pain, shortness of breath, or cough. Denies nausea, vomiting, or diarrhea. Reports small BM this morning. Elizalde catheter remains in place. Denies oral thrush or new skin lesions. Infect Dis PN-Objective Data - Labs CBC & Chem 7: 11/28/16 13:45 11/28/16 13:45 Labs: Laboratory Results - last 24 hr 11/26/16 11/27/16 11/27/16 04:42 16:14 21:35 POC Glucose 255 H 320 H A. baumannii (PCR) Not Detected Carol albicans (PCR) Not Detected C. glabrata (PCR) Not Detected C. krusei (PCR) Not Detected C. parapsilosis (PCR) Not Detected C. tropicalis (PCR) Not Detected Enterobacteriac sp PCR Not Detected E. cloacae complex PCR Not Detected Enterococcus sp PCR Not Detected E. coli (PCR) Not Detected H. influenzae (PCR) Not Detected Klebsiella oxytoca PCR Not Detected Klebsiella pneumoniae Not Detected List. monocytogenes PCR Not Detected N. meningitidis (PCR) Not Detected Proteus species (PCR) Not Detected Serratia marcescens PCR Not Detected Staphylococcus sp PCR DETECTED A Staph aureus (PCR) DETECTED A mecA-Methicil Res Gene DETECTED A Streptococcus sp PCR Not Detected Group A Strep DNA Not Detected Group B Strep (PCR) Not Detected Strep pneumoniae (PCR) Not Detected P. aeruginosa (PCR) Not Detected Steve/B-Vanco Res Genes N/A KPC (blaKPC) Detect PCR N/A Cultures: Cultures 11/26/16 04:42 Blood Culture - Preliminary Peripheral Venipuncture Gram Positive Cocci - Clusters 11/23/16 16:43 Anaerobic Culture - Final Left Knee No anaerobes were recovered. 11/25/16 04:37 Blood Culture - Preliminary Peripheral Venipuncture No growth. 11/24/16 05:48 Blood Culture - Final Peripheral Venipuncture Methicillin Resistant S.aureus 11/22/16 04:05 Blood Culture - Final Peripheral Venipuncture Methicillin Resistant S.aureus 11/22/16 04:12 Blood Culture - Final Peripheral Venipuncture Methicillin Resistant S.aureus 11/23/16 16:43 Wound Culture - Final Left Knee Methicillin Resistant S.aureus Serology 11/26/16 11/24/16 11/22/16 Range/Units 04:42 05:48 23:39 Urine Creatinine 208 mg/dL Urine Sodium 20.0 mEq/L Urine Urea Nitrogen 377 mg/dL A. baumannii (PCR) Not Detected Not Detected (Not Detect) Carol albicans (PCR) Not Detected Not Detected (Not Detect) C. glabrata (PCR) Not Detected Not Detected (Not Detect) C. krusei (PCR) Not Detected Not Detected (Not Detect) C. parapsilosis (PCR) Not Detected Not Detected (Not Detect) C. tropicalis (PCR) Not Detected Not Detected (Not Detect) Enterobacteriac sp PCR Not Detected Not Detected (Not Detect) E. cloacae complex PCR Not Detected Not Detected (Not Detect) Enterococcus sp PCR Not Detected Not Detected (Not Detect) E. coli (PCR) Not Detected Not Detected (Not Detect) H. influenzae (PCR) Not Detected Not Detected (Not Detect) Klebsiella oxytoca PCR Not Detected Not Detected (Not Detect) Klebsiella pneumoniae Not Detected Not Detected (Not Detect) List. monocytogenes PCR Not Detected Not Detected (Not Detect) N. meningitidis (PCR) Not Detected Not Detected (Not Detect) Proteus species (PCR) Not Detected Not Detected (Not Detect) Serratia marcescens PCR Not Detected Not Detected (Not Detect) Staphylococcus sp PCR DETECTED A DETECTED A (Not Detect) Staph aureus (PCR) DETECTED A DETECTED A (Not Detect) mecA-Methicil Res Gene DETECTED A DETECTED A (Not Detect) Streptococcus sp PCR Not Detected Not Detected (Not Detect) Group A Strep DNA Not Detected Not Detected (Not Detect) Group B Strep (PCR) Not Detected Not Detected (Not Detect) Strep pneumoniae (PCR) Not Detected Not Detected (Not Detect) P. aeruginosa (PCR) Not Detected Not Detected (Not Detect) Steve/B-Vanco Res Genes N/A Not Detected (Not Detect) KPC (blaKPC) Detect PCR N/A Not Detected (Not Detect) 11/22/16 Range/Units 04:12 Urine Creatinine mg/dL Urine Sodium mEq/L Urine Urea Nitrogen mg/dL A. baumannii (PCR) Not Detected (Not Detect) Carol albicans (PCR) Not Detected (Not Detect) C. glabrata (PCR) Not Detected (Not Detect) C. krusei (PCR) Not Detected (Not Detect) C. parapsilosis (PCR) Not Detected (Not Detect) C. tropicalis (PCR) Not Detected (Not Detect) Enterobacteriac sp PCR Not Detected (Not Detect) E. cloacae complex PCR Not Detected (Not Detect) Enterococcus sp PCR Not Detected (Not Detect) E. coli (PCR) Not Detected (Not Detect) H. influenzae (PCR) Not Detected (Not Detect) Klebsiella oxytoca PCR Not Detected (Not Detect) Klebsiella pneumoniae Not Detected (Not Detect) List. monocytogenes PCR Not Detected (Not Detect) N. meningitidis (PCR) Not Detected (Not Detect) Proteus species (PCR) Not Detected (Not Detect) Serratia marcescens PCR Not Detected (Not Detect) Staphylococcus sp PCR DETECTED A (Not Detect) Staph aureus (PCR) DETECTED A (Not Detect) mecA-Methicil Res Gene DETECTED A (Not Detect) Streptococcus sp PCR Not Detected (Not Detect) Group A Strep DNA Not Detected (Not Detect) Group B Strep (PCR) Not Detected (Not Detect) Strep pneumoniae (PCR) Not Detected (Not Detect) P. aeruginosa (PCR) Not Detected (Not Detect) Steve/B-Vanco Res Genes N/A (Not Detect) KPC (blaKPC) Detect PCR N/A (Not Detect) Exam - Constitutional Vitals: Temp Pulse Resp BP Pulse Ox 97.7 F 87 20 139/70 96 11/28/16 12:12 11/28/16 12:12 11/28/16 12:12 11/28/16 12:12 11/28/16 12:12 General appearance: cooperative, morbidly obese, no acute distress - Head Head exam: Present: atraumatic, normal inspection, normocephalic - Eye Eye exam: Present: EOMI, normal appearance, PERRL Pupils: Present: normal accommodation Additional comments: No subconjunctival hemorrhage noted. - ENT ENT exam: Present: mucous membranes moist Additional comments: Poor dentition noted. - Neck Neck exam: Present: normal inspection - Respiratory Respiratory exam: Present: CTAB. Absent: rales, respiratory distress, rhonchi, wheezes - Cardiovascular Cardiovascular exam: Present: RRR, +S1, +S2 - GI/Abdominal GI/Abdominal exam: Present: distended (obese), normal bowel sounds, soft. Absent: tenderness Additional comments: Elizalde catheter noted to be draining dark yellow urine. - Extremities Exam Extremities exam: Present: joint swelling (left knee), pedal edema (Trace BLE), tenderness (left knee) Additional comments: Left knee surgical sites x 2 noted to the anterior aspect. Sutures and steri- strips intact. Mild erythema and warmth noted to the knee. Marked tenderness noted with palpation. ROM severely limited due to pain. - Neurological Exam Neurological exam: Present: alert, oriented X3, no focal deficits - Psychiatric Psychiatric exam: Present: normal affect, normal mood - Skin Skin exam: Present: dry, intact, normal color, warm Additional comments: No endocarditis stigmata noted. Consult Discharge Plan - Plan Referrals: Mercedez Harvey PAC [Physician Epitaxial Reactor Operator] - 12/05/16 10:00 am Bladimir Aguirre MD [Partnered Physician] - 01/02/17 3:55 pm Louise Hays MD [Partnered Physician] - 12/10/16 4:00 pm - Attending Attestation I examined this patient and my medical decision-making was reviewed with the INTERNET [employer] BUSINESS PROJECT MANAGER/PA/Advanced Practice Nurse/Resident Physician. I agree with the documented findings, disposition and treatment plan as described except to the extent set forth below.
[2016-11-28 13:59] LABS: Enterococcus by PCR Not Detected (Not Detect); mecA Methicillin-Resist Gene ***DETECTED*** (Not Detect)
[2016-11-28 14:00] LABS: Acinetobacter baumannii by PCR Not Detected (Not Detect); Candida albicans by PCR Not Detected (Not Detect); Candida glabrata by PCR Not Detected (Not Detect); Candida krusei by PCR Not Detected (Not Detect); Candida parapsilosis by PCR Not Detected (Not Detect); Candida tropicalis by PCR Not Detected (Not Detect); Escherichia coli by PCR Not Detected (Not Detect); Klebsiella oxytoca by PCR Not Detected (Not Detect); Klebsiella pneumoniae by PCR Not Detected (Not Detect); Pseudomonas aeruginosa by PCR Not Detected (Not Detect); Serratia marcescens by PCR Not Detected (Not Detect); Staphylococcus aureus by PCR ***DETECTED*** (Not Detect); Streptococcus agalactiae(B)PCR Not Detected (Not Detect); Streptococcus by PCR Not Detected (Not Detect); Streptococcus pneumoniae PCR Not Detected (Not Detect); Streptococcus pyogenes (A) PCR Not Detected (Not Detect)
[2016-11-28 14:06] LABS: Basophils # 0.1 K/mcL (0.0-0.2); Basophils % 0.4 %; Eosinophils # 0.1 K/mcL (0.0-0.6); Eosinophils % 0.4 %; Hematocrit 36.5 % (37.5-50.1); Immature Granulocytes % 2.9 % (0-4); Lymphocytes % 7.3 %; Mean Corpuscular HGB Conc 32.9 g/dL (31.6-35.5); Mean Corpuscular Hemoglobin 27.5 pg (28.0-33.3); Mean Corpuscular Volume 83.7 fL (83.0-100.0); Mean Platelet Volume 8.4 fL (9.4-12.4); Monocytes # 0.8 K/mcL (0.0-1.3); Monocytes % 5.8 %; Neutrophils # 11.6 K/mcL (1.6-8.9); Platelet Count 298 K/mcL (140-400); Red Blood Count 4.36 M/mcL (4.19-5.50); Red Cell Distribution Width 14.6 % (11.5-14.5); Segmented Neutrophils % 83.2 %
[2016-11-28 14:20] LABS: Calcium 8.4 mg/dL (8.6-10.8); Potassium 3.7 mEq/L (3.5-4.5)
--- NOTE | 2016-11-28 15:25 | Orthopedic Consult Note ---
Date of Encounter: 11/29/16 Time of Encounter: 15:25 Assessment and Plan (1) Bacteremia due to Gram-positive bacteria Current Visit: Yes Status: Acute Spoke with ID today, concern that bacteremia has not resolved since Knee arthroscopic I&D on Saturday. Knee is most apparent source for infection. Discussed with , and because of continued bacteremia and concern for persistent septic knee, patient scheduled for a Left Knee Open Irrigation and debridement for tomorrow with . (2) Septic arthritis of knee, left Current Visit: Yes Status: Acute POD#5 Left Knee Arthroscopic I&D with . Findings patient with severe arthritis, persistent bacteremia with no resolution. Patient was indicated for open arthrotomy irrigation debridement Scheduled for 11/29/16 - reviewed. Consent signed and reviewed. Qualifiers: Septic arthritis organism: staphylococcal Qualified Code(s): M00.062 - Staphylococcal arthritis, left knee History of Present Illness Chief complaint: Bacteremia HPI: Mr. Arceo is a 70 year old male, POD#5 Left Knee Arthroscopic I&D with . Findings patient with severe arthritis, persistent bacteremia with no resolution. Patient was indicated for open arthrotomy irrigation debridement Persistent leukocytosis and +Blood cultures. KNEE pain continues, lack of motion. No erythema, Effusion noted. +Warmth. Past Med Surg Social Fam HX - Past Medical History Medical history: diabetes, hyperlipidemia, hypertension, renal disease Psychiatric history: no psych history - Past Surgical History Surgical History: other (Ping's gangrene I & D, Right foot toe amputation) - Social History Smoking Status: Never smoker Smokeless Tobacco Status: No Alcohol use: none Drug use: none - Family History Mother Living Status: Hx Family Endocrine Disorder: Yes (diabetes) Medications and Allergies Aspirin Enteric Coated [Aspirin EC] 81 mg PO DAILY 11/21/16 [History] Atorvastatin Calcium [Lipitor] 20 mg PO HS 11/21/16 [History] Cholecalciferol (D-3) [Vitamin D] 2,000 unit PO DAILY 11/21/16 [History] Gabapentin [Neurontin] 600 mg PO TID 11/21/16 [History] Glimepiride [Amaryl] 4 mg PO BID 11/21/16 [History] Insulin DETEMIR [Levemir] 20 unit SQ HS 11/21/16 [History] Lisinopril [Zestril] 20 mg PO BID 11/21/16 [History] Multivitamin [Multi-Day Vitamins] 1 each PO DAILY 11/21/16 [History] Nystatin POWDER [Nystop] 1 appl TP TID 11/21/16 [History] Omeprazole [PriLOSEC] 20 mg PO DAILY 11/21/16 [History] Oxycodone HCl [Roxicodone 30 MG Immed Release] 30 mg PO Q6HR PRN 11/21/16 [ History] Potassium Chloride [K-Tab ER] 20 meq PO DAILY 11/21/16 [History] Sertraline [Zoloft] 100 mg PO DAILY 11/21/16 [History] amLODIPine [Norvasc] 5 mg PO DAILY 11/21/16 [History] hydroCHLOROthiazide [Hydrochlorothiazide] 12.5 mg PO DAILY 11/21/16 [History] Allergies morphine Allergy (Verified 11/21/16 16:26) Hallucinating All Systems Reviewed: A 10-system review of systems was performed and is negative for pertinent findings except as documented above in the HPI. Physical Exam - Constitutional Vitals: Temp Pulse Resp BP Pulse Ox 97.7 F 87 20 139/70 96 11/28/16 12:12 11/28/16 12:12 11/28/16 12:12 11/28/16 12:12 11/28/16 12:12 - Knee left Appearance: effusion Effusion grade: grade 2 Varus alignment in stance: No Valgus alignment in stance: No Tenderness with palpation knee: anterior, posterior, medial, lateral Pain: throughout ROM Results - Labs Result Diagrams: 11/29/16 11:49 11/29/16 11:49 Labs: Abnormal lab results WBC 13.9 K/mcL (4.3-11.1) H 11/28/16 13:45 Hgb 12.0 g/dL (12.9-16.9) L 11/28/16 13:45 Hct 36.5 % (37.5-50.1) L 11/28/16 13:45 MCH 27.5 pg (28.0-33.3) L 11/28/16 13:45 RDW 14.6 % (11.5-14.5) H 11/28/16 13:45 MPV 8.4 fL (9.4-12.4) L 11/28/16 13:45 Neutrophils # 11.6 K/mcL (1.6-8.9) H 11/28/16 13:45 Hypersegmented Neuts Present (Not Present) A 11/22/16 04:12 Toxic Granulation Present (Not Present) A 11/22/16 04:12 Immature Plt Fraction 0.9 % (1.1-6.1) L 11/25/16 04:37 Polychromasia 1+ (Not Present) A 11/24/16 05:48 Anisocytosis 1+ (Not Present) A 11/24/16 05:48 Microcytosis Present (Not Present) A 11/24/16 05:48 ESR 103 mm/hr (0-10) H 11/24/16 05:48 PT 12.3 Seconds (9.4-12.1) H 11/23/16 07:38 APTT 23.2 Seconds (26.0-36.0) L 11/23/16 07:38 ABG pH 7.26 pH Units (7.32-7.45) L 11/22/16 18:50 ABG pO2 64 mmHg (85-104) L 11/22/16 18:50 ABG HCO3 19.7 mEQ/L (21-27) L 11/22/16 18:50 ABG O2 Saturation 88 % (95-98) L 11/22/16 18:50 ABG Base Excess -7.2 mEq/L (-2.0 to 3.0) L 11/22/16 18:50 VBG HCO3 27.2 mEq/L (21-27) H 11/21/16 18:03 Sodium 132 mEq/L (136-145) L 11/28/16 13:45 BUN 38 mg/dL (8-26) H D 11/28/16 13:45 Creatinine 1.82 mg/dL (0.72-1.25) H D 11/28/16 13:45 Est GFR ( Amer) 45 (> 60) L 11/28/16 13:45 Est GFR (Non-Af Amer) 37 (> 60) L 11/28/16 13:45 Glucose 278 mg/dL (70-99) H 11/28/16 13:45 POC Glucose 320 (58-89) H 11/27/16 21:35 Hemoglobin A1c 12.2 % (-5.6) H 11/22/16 04:12 Calcium 8.4 mg/dL (8.6-10.8) L 11/28/16 13:45 Direct Bilirubin 0.6 mg/dL (0.0-0.5) H 11/24/16 05:48 AST 40 Units/L (5-34) H 11/24/16 05:48 Creatine Kinase 685 Units/L (30-200) H 11/21/16 16:52 C-Reactive Protein 397 mg/L (Less than 5) H 11/24/16 05:48 Albumin 1.6 g/dL (3.5-5.0) L 11/24/16 05:48 Globulin 4.4 g/dL (2.4-3.5) H 11/24/16 05:48 Albumin/Globulin Ratio 0.4 (1.1-2.2) L 11/24/16 05:48 Beta-Hydroxybutyric Acd > 2.00 mmol/L (0.02-0.27) H 11/21/16 16:52 Urine Clarity Cloudy (Clear) A 11/21/16 17:30 Ur Specific [place] 1.026 (1.010-1.025) H 11/21/16 17:30 Urine Protein 30 mg/dL (Neg-Trace) H 11/21/16 17:30 Urine Glucose (UA) >=1000 mg/dL (Normal) H 11/21/16 17:30 Urine Ketones 15 mg/dL (Negative) H 11/21/16 17:30 Urine Blood Large (Negative) H 11/21/16 17:30 Ur Leukocyte Esterase Trace (Negative) H 11/21/16 17:30 Urine Microscopic RBC 5-15 per hpf (0-3) H 11/21/16 17:30 Urine Microscopic WBC 5-15 per hpf (0-3) H 11/21/16 17:30 Ur Squamous Epith Cells Many per lpf (None-Few) H 11/21/16 17:30 Urine Yeast Few per hpf (None Seen) H 11/21/16 17:30 Ur Culture Indicated? YES (NO) A 11/21/16 17:30 Staphylococcus sp PCR DETECTED (Not Detect) A 11/27/16 09:04 Staph aureus (PCR) DETECTED (Not Detect) A 11/27/16 09:04 mecA-Methicil Res Gene DETECTED (Not Detect) A 11/27/16 09:04 H & H 11/28/16 Range/Units 13:45 Hgb 12.0 L (12.9-16.9) g/dL Hct 36.5 L (37.5-50.1) % All other labs normal. Consult Discharge Plan - Plan Referrals: Mercedez Harvey PAC [Physician Mechanic Industrial Truck] - 12/05/16 10:00 am Bladimir Aguirre MD [Partnered Physician] - 01/02/17 3:55 pm Louise Hays MD [Partnered Physician] - 12/10/16 4:00 pm
--- NOTE | 2016-11-28 16:57 | Internal Med Progress Note ---
Date of Encounter: 11/28/16 Time of Encounter: 16:55 - Assessment and plan (1) Acute on chronic kidney failure Current Visit: Yes Status: Acute (2) Hyperosmolar non-ketotic state in patient with type 2 diabetes mellitus Current Visit: Yes Status: Acute (3) Bacteremia due to Gram-positive bacteria Current Visit: Yes Status: Acute (4) Septic arthritis of knee, left Current Visit: Yes Status: Acute Qualifiers: Septic arthritis organism: staphylococcal Qualified Code(s): M00.062 - Staphylococcal arthritis, left knee (5) Diabetes mellitus type 2 in obese Current Visit: Yes Status: Acute (6) Hypertension Current Visit: Yes Status: Chronic Qualifiers: Hypertension type: essential hypertension Qualified Code(s): I10 - Essential (primary) hypertension - Subjective Interval history: Chart reviewed. Patient Ashvin Arceo is a 70-year-old male was transferred our floor. Patient came in after he had a fall and hurt his left knee. He was diagnosed with the osteomyelitis of left knee. Dr. Saldivar orthopedic surgeon was consulted who did laparoscopic the Manuel. Infectious disease is involved. Patient last blood culture did not show any bacteria therefore it is planned to put a PICC line and after that he can be discharged for 4 weeks of IV antibiotic treatment. Infectious disease has mentioned that they want to get BERNARDO to rule out endocarditis. Clinically he seems stable in this regard. 11/28 repeat but blood cultures are positive for Staphylococcus. PICC line is postponed. Infectious disease has reconsulted orthopedics to do another procedure on the knee. However another concern as the patient has been on IV vancomycin for 7 days and his last positive culture so should be also due BERNARDO. Will discuss with neck infectious disease. - Constitutional Vitals: Temp Pulse Resp BP Pulse Ox 98.9 F 75 16 127/56 96 11/28/16 15:50 11/28/16 15:50 11/28/16 15:50 11/28/16 15:50 11/28/16 15:50 General appearance: Present: disheveled, A&O X 3, morbidly obese, pleasant, no acute distress, answers questions appropriately - Head Head exam: Present: atraumatic, normocephalic - Eye Eye exam: Present: PERRL, conjuntiva pink, sclera anicteric Pupils: Present: PERRL - Neck Neck exam general surgery: Present: supple, trachea midline. Absent: lymphadenopathy - Respiratory Respiratory exam: Present: CTAB. Absent: accessory muscle use, rales, rhonchi, wheezes - Cardiovascular Cardiovascular exam: Present: RRR, +S1, +S2. Absent: diastolic murmur, gallop, rubs, systolic murmur - GI/Abdominal GI/Abdominal exam: Present: normal bowel sounds, soft, no peritoneal signs. Absent: distended, tenderness - Extremities Exam Extremities exam: Present: warm, radial pulses palpable and symetrical. Absent : calf tenderness, cyanotic, pedal edema Additional comments: Knee exam per - Neurological Exam Neurological exam: Present: CN II-XII intact, oriented X3, no focal deficits. Absent: pronater drift, facial droop, speech deficit - Skin Skin exam: Present: dry, intact Internal Medicine: Result - Labs CBC & Chem 7: 11/28/16 13:45 11/28/16 13:45 Labs: Short CBC 11/28/16 Range/Units 13:45 WBC 13.9 H (4.3-11.1) K/mcL Hgb 12.0 L (12.9-16.9) g/dL Hct 36.5 L (37.5-50.1) % Plt Count 298 (140-400) K/mcL Neutrophils # 11.6 H (1.6-8.9) K/mcL BMP 11/28/16 13:45 Sodium 132 L Potassium 3.7 Chloride 99 Carbon Dioxide 26 BUN 38 H D Creatinine 1.82 H D Glucose 278 H Calcium 8.4 L - ABG Interpretation ABG results: ABG ABG pH 7.26 pH Units (7.32-7.45) L 11/22/16 18:50 ABG pCO2 44 mmHg (35-45) 11/22/16 18:50 ABG pO2 64 mmHg (85-104) L 11/22/16 18:50 ABG O2 Saturation 88 % (95-98) L 11/22/16 18:50 PT/INR, D-dimer PT 12.3 Seconds (9.4-12.1) H 11/23/16 07:38 Consult Discharge Plan - Plan Referrals: Mercedez Harvey PAC [Physician Stocking And Box Shop Supervisor] - 12/05/16 10:00 am Bladimir Aguirre MD [Partnered Physician] - 01/02/17 3:55 pm Louise Hays MD [Partnered Physician] - 12/10/16 4:00 pm
[2016-11-28] MEDS ORDERED: MethylPREDNISolone 40 MG/ML VIAL IVP ONE (16:59)
--- NOTE | 2016-11-28 19:30 | Anesthesia Evaluation PreOp ---
Date of Encounter: 11/28/16 Time of Encounter: 19:28 - Past History Planned Operation: I&D Left Knee Cardiac History: HTN, Hyperlipidemia Pulmonary History: COPD, Snore YEAST DISTILLER History: Denies Any Significant HX Other Medical History: Renal (CRD stage III), Diabetes Type II, GERD, Other (( sepis/septic arthritis- MRSA)) Anesthesia History: No Prior Anesthetic Complications, Past Anesthesia (Left Total Knee) Alcohol Use: none Drug use: none Medications and Allergies Aspirin Enteric Coated [Aspirin EC] 81 mg PO DAILY 11/21/16 [History] Atorvastatin Calcium [Lipitor] 20 mg PO HS 11/21/16 [History] Cholecalciferol (D-3) [Vitamin D] 2,000 unit PO DAILY 11/21/16 [History] Gabapentin [Neurontin] 600 mg PO TID 11/21/16 [History] Glimepiride [Amaryl] 4 mg PO BID 11/21/16 [History] Insulin DETEMIR [Levemir] 20 unit SQ HS 11/21/16 [History] Lisinopril [Zestril] 20 mg PO BID 11/21/16 [History] Multivitamin [Multi-Day Vitamins] 1 each PO DAILY 11/21/16 [History] Nystatin POWDER [Nystop] 1 appl TP TID 11/21/16 [History] Omeprazole [PriLOSEC] 20 mg PO DAILY 11/21/16 [History] Oxycodone HCl [Roxicodone 30 MG Immed Release] 30 mg PO Q6HR PRN 11/21/16 [ History] Potassium Chloride [K-Tab ER] 20 meq PO DAILY 11/21/16 [History] Sertraline [Zoloft] 100 mg PO DAILY 11/21/16 [History] amLODIPine [Norvasc] 5 mg PO DAILY 11/21/16 [History] hydroCHLOROthiazide [Hydrochlorothiazide] 12.5 mg PO DAILY 11/21/16 [History] Allergies morphine Allergy (Verified 11/21/16 16:26) Hallucinating - Meds/Allergy Pre-op Review Medications Reviewed: Yes Allergies Reviewed: Yes Beta Blockers on Current Med List: No Anesthesia Results - Labs 11/28/16 13:45 11/28/16 13:45 Echo 11/23/16 EF-60-65% Mild diastolic dysfunction Milld TR Mild pHTN - Imaging EKG: image reviewed (SR) Anesthesia Exam Height: 5'11'' Weight: 338 NPO (# of Hours): > 8 hrs Pain Scale: 0 Pain Scale Used: Numeric (1 - 10) - HEENT Pupil (Motor): Pupils equal, EOMI Mallampati: II Teeth: Missing, Poor dentition Oral Opening: Greater than 3 - YEAST DISTILLER LOC: Oriented YEAST DISTILLER Motor: Normal RUE, Normal LUE, Normal RLE, Normal LLE, Normal Face YEAST DISTILLER Sensory: Normal: RUE, LUE, RLE, LLE, Face - Cardiac Rhythm: Regular Murmur: None JVD: No Carotid Bruit: No - Pulmonary Breath Sounds: bilateral Clear Respiratory Effort: Symmetrical Anesthesia Assess/Plan ASA Score: 4 Modified Zulema Scale for Level of Consciousness: Cooperative, oriented, and tranquil Anesthetic Plan: General Autologous Blood: Yes Monitoring Plan: Standard Monitors Recovery Plan: PACU
[2016-11-28] MEDS ORDERED: Insulin DETEMIR 100 UNIT/ML X5UNITS SQ SCH (21:00)
[2016-11-28] MEDS: Miconazole w/zinc oxide&karaya 92 APPL/92 GM TUBE TP SCH (22:14)
[2016-11-29] MEDS: *HR* Heparin 5,000 UNIT/ML VIAL SQ SCH ×2 (04:39→18:02)
[2016-11-29] MEDS: Multivit/Ca/Min/Fe/FA 1 TAB TABLET PO SCH (09:46)
[2016-11-29] MEDS: amLODIPine 5 MG TABLET PO SCH (09:46)
[2016-11-29] MEDS: Aspirin Enteric Coated 81 MG Tablet PO SCH (09:46)
[2016-11-29] MEDS: Cholecalciferol (D-3) 1,000 UNIT TABLET PO SCH (09:46)
[2016-11-29] MEDS: Gabapentin 300 MG CAPSULE PO SCH ×2 (09:46→21:31)
[2016-11-29] MEDS: Insulin LISPRO 300 UNITS/3 ML VIAL SQ SCH ×4 (09:48→18:00)
[2016-11-29] MEDS: Nystatin POWDER 30 GM BOTTLE TP SCH ×2 (09:49→21:42)
[2016-11-29] MEDS: Miconazole w/zinc oxide&karaya 92 APPL/92 GM TUBE TP SCH ×2 (10:02→21:42)
[2016-11-29 10:20] LABS: Bilirubin,Urine Small (Negative); Blood,Urine Large (Negative); Clarity,Urine Turbid (Clear); Color,Urine Dark Yellow (Yellow); Glucose,Urine (UA) Normal (Normal); Ketones,Urine Negative (Negative); Leukocyte Esterase,Urine Moderate (Negative); Nitrite,Urine Negative (Negative); Protein,Urine Trace mg/dL (Neg-Trace); Urobilinogen,Urine Normal (Normal)
[2016-11-29 10:22] LABS: Bacteria,Urine None Seen per hpf (None-Few); Squamous Epithelial Cell,Urine Many per lpf (None-Few); WBC,Urine TNTC per hpf (0-3)
[2016-11-29 10:49] LABS: Yeast,Urine Many per hpf (None Seen)
[2016-11-29 10:50] LABS: Hyaline Casts,Urine None Seen per lpf (None-Few)
[2016-11-29] MEDS ORDERED: Insulin LISPRO 300 UNITS/3 ML VIAL SQ SCH ×2 (12:00→21:00)
--- NOTE | 2016-11-29 12:04 | Nephrology Consult Note ---
Date of Encounter: 11/29/16 Time of Encounter: 12:00 Assessment and Plan (1) CKD (chronic kidney disease) stage 3, GFR 30-59 ml/min Current Visit: Yes Status: Acute At this point we will monitor his kidney function and anticipate it will stay within his baseline. Need updated BMP-ordered Avoid nephrotoxins if possible (2) Septic arthritis of knee, left Current Visit: Yes Status: Acute per orthopedics team Qualifiers: Septic arthritis organism: staphylococcal Qualified Code(s): M00.062 - Staphylococcal arthritis, left knee History of Present Illness - Reason for Consult Consult date: 11/29/16 Chronic Kidney Disease - Chief Complaint CKD stage 3, septic arthritis of left knee - History of Present Illness Mr. Arceo is a 70 year old male has history of COPD diabetes hypertension DJD OA and CKD stage [address] Nicole Hays. Patient fell at home and hurt his left knee. Patient states he is going to surgery today to "clean out" his left knee. Nephrology has been consulted for his kidney disease. Review of past office visits show his baseline Scr around 1.69 and GFR of 40. Review of kidney function while hospitalized show he has fluctuated within the range of his baseline. Patient actually has a follow up appointment with Dr Rivera on 12/10/16 Past Med Surg Social Fam HX - Past Medical History Medical history: diabetes, hyperlipidemia, hypertension, renal disease Psychiatric history: no psych history - Past Surgical History Surgical History: other (Ping's gangrene I & D, Right foot toe amputation) - Social History Smoking Status: Never smoker Smokeless Tobacco Status: No Alcohol use: none Drug use: none - Family History Mother Living Status: Hx Family Endocrine Disorder: Yes (diabetes) Medications and Allergies Aspirin Enteric Coated [Aspirin EC] 81 mg PO DAILY 11/21/16 [History] Atorvastatin Calcium [Lipitor] 20 mg PO HS 11/21/16 [History] Cholecalciferol (D-3) [Vitamin D] 2,000 unit PO DAILY 11/21/16 [History] Gabapentin [Neurontin] 600 mg PO TID 11/21/16 [History] Glimepiride [Amaryl] 4 mg PO BID 11/21/16 [History] Insulin DETEMIR [Levemir] 20 unit SQ HS 11/21/16 [History] Lisinopril [Zestril] 20 mg PO BID 11/21/16 [History] Multivitamin [Multi-Day Vitamins] 1 each PO DAILY 11/21/16 [History] Nystatin POWDER [Nystop] 1 appl TP TID 11/21/16 [History] Omeprazole [PriLOSEC] 20 mg PO DAILY 11/21/16 [History] Oxycodone HCl [Roxicodone 30 MG Immed Release] 30 mg PO Q6HR PRN 11/21/16 [ History] Potassium Chloride [K-Tab ER] 20 meq PO DAILY 11/21/16 [History] Sertraline [Zoloft] 100 mg PO DAILY 11/21/16 [History] amLODIPine [Norvasc] 5 mg PO DAILY 11/21/16 [History] hydroCHLOROthiazide [Hydrochlorothiazide] 12.5 mg PO DAILY 11/21/16 [History] Allergies morphine Allergy (Verified 11/21/16 16:26) Hallucinating Review of Systems All Systems: reviewed and no additional remarkable complaints except as stated Constitutional: no chills, no fever(s) Respiratory: no cough, no dyspnea Gastrointestinal: no abdominal pain, no diarrhea, no vomiting Musculoskeletal: arthralgias, joint swelling Musculoskeletal: left: knee pain, knee swelling Neurological: no behavioral changes, no confusion Exam - Vital Signs Vital signs: Initial Vital Signs Temp Pulse Resp BP Pulse Ox 98.9 F 101 18 116/53 98 11/21/16 15:40 11/21/16 15:40 11/21/16 15:40 11/21/16 15:40 11/21/16 15:40 Vital Signs - Last 8 Hours Temp Pulse Resp BP Pulse Ox 11/29/16 11:41 98.5 F 75 17 123/75 97 11/29/16 09:45 96 11/29/16 07:40 97.5 F L 72 15 128/67 96 11/29/16 04:38 97.5 F L 75 15 135/71 94 Intake and Output 11/28/16 11/29/16 11/29/16 23:59 07:59 15:59 Intake Total 240 / 240 0 / 0 400 / 400 Output Total 0 / 0 475 / 475 650 / 650 Balance 240 / 240 -475 / -475 -250 / -250 Intake: Oral 240 / 240 0 / 0 400 / 400 Output: Urine 0 / 0 200 / 200 200 / 200 Urethral (Elizalde) 200 / 200 Catheter 275 / 275 450 / 450 Other: Meal Dinner NPO Percent of Meal Consumed 100% Weight 151.7 kg Blood Glucose* 217 308 249 Patient Weight 11/29/16 23:59 Weight 151.7 kg - General Appearance General appearance: well-developed, well-nourished EENT: ATNC, mucous membranes moist, hearing intact, vision intact Neck: supple Respiratory: clear Cardiology: edema, normal S1, normal S2 Gastrointestinal: no tenderness, no guarding Integumentary: warm and dry Neurologic: alert and oriented x3 Psychiatric: mood/affect appropriate, cooperative Results - Lab Results 11/28/16 13:45 11/28/16 13:45 Most recent lab results ABG pH 7.26 pH Units (7.32-7.45) L 11/22/16 18:50 ABG pCO2 44 mmHg (35-45) 11/22/16 18:50 ABG pO2 64 mmHg (85-104) L 11/22/16 18:50 ABG HCO3 19.7 mEQ/L (21-27) L 11/22/16 18:50 ABG O2 Saturation 88 % (95-98) L 11/22/16 18:50 Calcium 8.4 mg/dL (8.6-10.8) L 11/28/16 13:45 Magnesium 1.7 mg/dL (1.6-2.6) 11/23/16 07:38 Urine Creatinine 208 mg/dL 11/22/16 23:39 Urine Sodium 20.0 mEq/L 11/22/16 23:39 Consult Discharge Plan - Plan Referrals: Mercedez Harvey PAC [Physician Barrel Raiser Helper] - 12/05/16 10:00 am Bladimir Aguirre MD [Partnered Physician] - 01/02/17 3:55 pm Louise Hays MD [Partnered Physician] - 12/10/16 4:00 pm
[2016-11-29 12:30] LABS: Basophils % 0.2 %; Eosinophils % 0.1 %; Hematocrit 36.4 % (37.5-50.1); Hemoglobin 12.1 g/dL (12.9-16.9); Immature Granulocytes % 2.9 % (0-4); Lymphocytes # 1.1 K/mcL (0.6-4.6); Lymphocytes % 7.9 %; Mean Corpuscular HGB Conc 33.2 g/dL (31.6-35.5); Mean Corpuscular Hemoglobin 27.5 pg (28.0-33.3); Mean Corpuscular Volume 82.7 fL (83.0-100.0); Mean Platelet Volume 8.7 fL (9.4-12.4); Monocytes # 0.6 K/mcL (0.0-1.3); Monocytes % 4.5 %; Neutrophils # 11.6 K/mcL (1.6-8.9); Platelet Count 323 K/mcL (140-400); Red Cell Distribution Width 14.6 % (11.5-14.5); Segmented Neutrophils % 84.4 %
[2016-11-29 12:36] LABS: Vancomycin,Trough 27.8 mcg/mL (10-20)
[2016-11-29 12:40] LABS: Albumin 1.4 g/dL (3.5-5.0); Albumin/Globulin Ratio 0.3 (1.1-2.2); Bilirubin,Total 0.7 mg/dL (0.2-1.2); Calcium 8.5 mg/dL (8.6-10.8); Globulin 4.9 g/dL (2.4-3.5); Potassium 3.9 mEq/L (3.5-4.5); Total Protein 6.3 g/dL (6.0-8.3)
--- NOTE | 2016-11-29 12:45 | Internal Med Progress Note ---
Date of Encounter: 11/29/16 Time of Encounter: 12:41 - Assessment and plan (1) Acute on chronic kidney failure Current Visit: Yes Status: Acute (2) Hyperosmolar non-ketotic state in patient with type 2 diabetes mellitus Current Visit: Yes Status: Acute (3) Bacteremia due to Gram-positive bacteria Current Visit: Yes Status: Acute (4) Septic arthritis of knee, left Current Visit: Yes Status: Acute Qualifiers: Septic arthritis organism: staphylococcal Qualified Code(s): M00.062 - Staphylococcal arthritis, left knee (5) Diabetes mellitus type 2 in obese Current Visit: Yes Status: Acute (6) Hypertension Current Visit: Yes Status: Chronic Qualifiers: Hypertension type: essential hypertension Qualified Code(s): I10 - Essential (primary) hypertension - Subjective Interval history: Chart reviewed. Patient Ashvin Arceo is a 70-year-old male was transferred our floor. Patient came in after he had a fall and hurt his left knee. He was diagnosed with the osteomyelitis of left knee. Dr. Saldivar orthopedic surgeon was consulted who did laparoscopic the Manuel. Infectious disease is involved. Patient last blood culture did not show any bacteria therefore it is planned to put a PICC line and after that he can be discharged for 4 weeks of IV antibiotic treatment. Infectious disease has mentioned that they want to get BERNARDO to rule out endocarditis. Clinically he seems stable in this regard. 11/28 repeat but blood cultures are positive for Staphylococcus. PICC line is postponed. Infectious disease has reconsulted orthopedics to do another procedure on the knee. However another concern as the patient has been on IV vancomycin for 7 days and his last positive culture so should be also due BERNARDO. Will discuss with neck infectious disease. 11/29 asymptomatic. Creatinine was noted to be around 1.8. Previously it was less than 1 therefore we had a consent if he is developing nephrotoxicity from any of his medication. Lisinopril and vancomycin have been stopped. Rank 12 level is 2 around known however I got a random Vanco level which seems high but I will wait for the control level. Nephrology saw the patient and noted that patient is followed by Dr. Rivera for chronic kidney disease and his current creatinine is pretty much within the bounds of his baseline. However nephrology has recommended avoiding nephrotoxins therefore he will keep lisinopril and vancomycin on hold and wait for infectious disease to see if he can use some other medication for MRSA coverage. Patient is planned to go for knee surgery for further cleaning as his blood cultures are still showing Staphylococcus cocci. His blood sugars are running relatively high yesterday we increased his Lantus to 30 units. Now we will add insulin 6 units with each meal. He is on IV hydralazine when necessary for blood pressure control. It was noticed that his urine culture also showed MRSA in the past - Constitutional Vitals: Temp Pulse Resp BP Pulse Ox 98.5 F 75 17 123/75 97 11/29/16 11:41 11/29/16 11:41 11/29/16 11:41 11/29/16 11:41 11/29/16 11:41 General appearance: Present: disheveled, A&O X 3, morbidly obese, pleasant, no acute distress, answers questions appropriately - Head Head exam: Present: atraumatic, normocephalic - Eye Eye exam: Present: PERRL, conjuntiva pink, sclera anicteric Pupils: Present: PERRL - Neck Neck exam general surgery: Present: supple, trachea midline. Absent: lymphadenopathy - Respiratory Respiratory exam: Present: CTAB. Absent: accessory muscle use, rales, rhonchi, wheezes - Cardiovascular Cardiovascular exam: Present: RRR, +S1, +S2. Absent: diastolic murmur, gallop, rubs, systolic murmur - GI/Abdominal GI/Abdominal exam: Present: normal bowel sounds, soft, no peritoneal signs. Absent: distended, tenderness - Extremities Exam Extremities exam: Present: warm, radial pulses palpable and symetrical. Absent : calf tenderness, cyanotic, pedal edema Additional comments: Detail examination per podiatry and orthopedics - Neurological Exam Neurological exam: Present: CN II-XII intact, oriented X3, no focal deficits. Absent: pronater drift, facial droop, speech deficit - Skin Skin exam: Present: dry, intact Internal Medicine: Result - Labs CBC & Chem 7: 11/29/16 11:49 11/29/16 11:49 Labs: Short CBC 11/28/16 11/29/16 Range/Units 13:45 11:49 WBC 13.9 H 13.7 H (4.3-11.1) K/mcL Hgb 12.0 L 12.1 L (12.9-16.9) g/dL Hct 36.5 L 36.4 L (37.5-50.1) % Plt Count 298 323 (140-400) K/mcL Neutrophils # 11.6 H 11.6 H (1.6-8.9) K/mcL BMP 11/28/16 13:45 Sodium 132 L Potassium 3.7 Chloride 99 Carbon Dioxide 26 BUN 38 H D Creatinine 1.82 H D Glucose 278 H Calcium 8.4 L Urine 11/29/16 Range/Units 10:05 Urine Color Dark Yellow (Yellow) Urine Clarity Turbid A (Clear) Urine pH 5.0 (5.0-8.0) pH Units Ur Specific Aurelia 1.020 (1.010-1.025) Urine Protein Trace (Neg-Trace) mg/dL Urine Glucose (UA) Normal (Normal) mg/dL - ABG Interpretation ABG results: ABG ABG pH 7.26 pH Units (7.32-7.45) L 11/22/16 18:50 ABG pCO2 44 mmHg (35-45) 11/22/16 18:50 ABG pO2 64 mmHg (85-104) L 11/22/16 18:50 ABG O2 Saturation 88 % (95-98) L 11/22/16 18:50 PT/INR, D-dimer PT 12.3 Seconds (9.4-12.1) H 11/23/16 07:38 Consult Discharge Plan - Plan Referrals: Mercedez Harvey, PAC [Physician Hospice Administrator] - 12/05/16 10:00 am Bladimir Aguirre MD [Partnered Physician] - 01/02/17 3:55 pm Louise Hays MD [Partnered Physician] - 12/10/16 4:00 pm
[2016-11-29] MEDS ORDERED: Vancomycin 1 EACH in EMPTY BAG 1 EACH IVPB SCH ×2 (13:00→16:01)
--- NOTE | 2016-11-29 13:48 | Infectious Disease Progress No ---
Date of Encounter: 11/29/16 Time of Encounter: 10:45 - Assessment and Plan (1) Sepsis Current Visit: Yes Status: Acute The patient had 2 SIRS criteria on admission. Likely secondary to bacteremia and left knee septic arthritis. Improved. White blood cell count trending down. Tachycardia resolved. The patient has been afebrile. Cultures drawn 11/22/16 are +2 out of 2 sets for MRSA. Repeat blood culture drawn 11/24/16 are positive 1/1 set. Repeat blood culture drawn 11/25/16 is NGTD. Additional blood culture drawn 11/26/16 is positive 1/1 sets for MRSA. Additional two sets of blood cultures drawn 11/27/16 are positive 1/2 sets as well. Repeat blood cultures x 2 sets 11/30/16. Qualifiers: Sepsis type: methicillin resistant Staphylococcus aureus Qualified Code(s) : A41.02 - Sepsis due to Methicillin resistant Staphylococcus aureus (2) Bacteremia due to Gram-positive bacteria Current Visit: Yes Status: Acute Causative organism: MRSA. Source likely left knee septic arthritis. Complicated due to seeding of the kidneys/urine. Blood cultures drawn 11/22/16 are +2 out of 2 sets for MRSA. Repeat blood culture drawn 11/24/16 are positive 1/1 set. Repeat blood culture drawn 11/25/16 is positive 1/1 sets. Additional blood culture drawn 11/26/16 is NGTD. Additional two sets of blood cultures drawn 11/27/16 are positive 1/2 sets as well.. The patient has no endocarditis stigmata noted on physical exam. He meets one major and one minor Modified Stark criteria at this point. TTE negative for valvular vegetations. Will need BERNARDO prior to discharge. The patient continues to have persistent bacteremia. Etiology unclear, but could be an issue with source control vs. sub-therapeutic serum vanc levels due to patient's improving renal function vs. Vanc KENNY 2. The patient is going back to the OR today for open I & D of the left knee per Dr. Aguirre. Also concern about possible dental infection, although dental infection is an unlikely source of MRSA bacteremia. Continue vancomycin IV for now. Pharmacy to dose. Goal trough approximately 15. Most recent VT 27.8. Dosing discussed with Denny Baig. If patient continues to bacteremic, we may need to consider switching antibiotics, but will continue Vancomycin for now. Duration of treatment depends on the clinical picture, but likely 4 weeks given the complicated nature of the bacteremia. Await repeat blood cultures. Get another set x 2 in the AM. Avoid the insertion of central venous access until repeat blood cultures are negative 48 hours. Monitor renal function and for drug toxicity and dose adjust antibiotics. Continue contact precautions per protocol. (3) Septic arthritis of knee, left Current Visit: Yes Status: Acute Location: Left knee. Etiology not entirely clear. The patient has no indwelling hardware. He denies any injury prior to the fall the day before admission. Causative organism MRSA. Left knee x-ray showed a small to moderate suprapatellar knee effusion. Status post arthrocentesis 11/21/16 in the emergency department. No sample was sent for cell count. Culture positive for MRSA. Orthopedics has been consulted. Status post arthroscopic washout 11/23/[address] Aguirre. Operative report reviewed. Intra-operative cultures positive for MRSA. ESR and CRP are markedly elevated. Repeat CRP is improving, but the patient continues to complain of severe pain. There is some warmth and erythema noted this morning. Given the patient's persistent bacteremia we asked ortho to re-evaluate. Spoke with Juanita Harris with the ortho team. Planning to take the patient back to the OR today for open I & D. Continue antibiotics as above. Continue wound care and activity restrictions as outlined by the ortho team. Duration of treatment depends on the clinical picture. Typically, we would treat for two weeks with IV antibiotics followed by two weeks of orals, but due to the patient's complicated bacteremia, he will require a full four week course of IV antibiotics. Qualifiers: Septic arthritis organism: staphylococcal Qualified Code(s): M00.062 - Staphylococcal arthritis, left knee (4) Acute on chronic kidney failure Current Visit: Yes Status: Acute Serum creatinine elevated at 2.48 on admission, but serum creatinine on the rise again. Nephrology has been consulted. Previous retroperitoneal ultrasound negative. Continue to monitor. Avoid nephrotoxins as able. Dose adjust antibiotics and other medications based on creatinine clearance. (5) Asymptomatic bacteriuria Current Visit: Yes Status: Acute Urinalysis obtained in the emergency department shows trace leukocyte esterase, 5-15 white blood cells, but many epithelial cells. Urine culture is positive for MRSA. This is likely seeding of the kidneys/ urine. The patient has been asymptomatic. Normally, there would be no indication to treat, but given the patient's bacteremia he will require antibiotics. (6) Hyponatremia Current Visit: Yes Status: Acute Serum sodium level 128 on admission. Improved. Management per the primary team. (7) Hyperglycemia Current Visit: Yes Status: Acute Serum glucose greater than 600 on arrival. Likely multifactorial--> infectious process, poorly controlled diabetes, etc. Improved. Further management per the primary team. (8) Hyperkalemia Current Visit: Yes Status: Resolved Likely secondary to acute kidney injury. Resolved. (9) Diabetes mellitus type 2 in obese Current Visit: Yes Status: Acute Uncontrolled. Hemoglobin A1c 12.2. Recommend aggressive glucose monitoring and control to promote wound healing and prevent reinfection. (10) Morbid obesity with BMI of 45.0-49.9, adult Current Visit: Yes Status: Chronic - Subjective Interval history: Patient seen and examined. No acute events noted overnight. Patient resting in bed. Complains of pain in the left knee and back, not much better today than yesterday. Denies fevers or chills. Denies chest pain, shortness of breath, or cough. Denies nausea, vomiting, or diarrhea. Elizalde catheter remains in place. Denies oral thrush or new skin lesions. Due to persistent bacteremia and persistent knee pain, patient being taken to the OR today for open I & D. Discussed the case with Sofie Hobbs PA-C from ortho. Infect Dis PN-Objective Data - Labs CBC & Chem 7: 11/30/16 09:03 11/30/16 09:03 Labs: Laboratory Results - last 24 hr 11/27/16 11/28/16 11/28/16 09:04 08:20 12:16 WBC RBC Hgb Hct MCV MCH MCHC RDW Plt Count MPV Immature Gran % Seg Neutrophils % Lymphocytes % Monocytes % Eosinophils % Basophils % Neutrophils # Lymphocytes # Monocytes # Eosinophils # Basophils # Sodium Potassium Chloride Carbon Dioxide BUN Creatinine Est GFR ( Amer) Est GFR (Non-Af Amer) BUN/Creatinine Ratio Glucose POC Glucose 186 H 255 H Calculated Osmolality Calcium Total Bilirubin AST ALT Alkaline Phosphatase Serum Total Protein Albumin Globulin Albumin/Globulin Ratio Urine Color Urine Clarity Urine pH Ur Specific [place] Urine Protein Urine Glucose (UA) Urine Ketones Urine Blood Urine Nitrite Urine Bilirubin Urine Urobilinogen Ur Leukocyte Esterase Urine Microscopic RBC Urine Microscopic WBC Ur Squamous Epith Cells Urine Bacteria Hyaline Casts Urine Yeast Ur Culture Indicated? Vancomycin Trough A. baumannii (PCR) Not Detected Carol albicans (PCR) Not Detected C. glabrata (PCR) Not Detected C. krusei (PCR) Not Detected C. parapsilosis (PCR) Not Detected C. tropicalis (PCR) Not Detected Enterobacteriac sp PCR Not Detected E. cloacae complex PCR Not Detected Enterococcus sp PCR Not Detected E. coli (PCR) Not Detected H. influenzae (PCR) Not Detected Klebsiella oxytoca PCR Not Detected Klebsiella pneumoniae Not Detected List. monocytogenes PCR Not Detected N. meningitidis (PCR) Not Detected Proteus species (PCR) Not Detected Serratia marcescens PCR Not Detected Staphylococcus sp PCR DETECTED A Staph aureus (PCR) DETECTED A mecA-Methicil Res Gene DETECTED A Streptococcus sp PCR Not Detected Group A Strep DNA Not Detected Group B Strep (PCR) Not Detected Strep pneumoniae (PCR) Not Detected P. aeruginosa (PCR) Not Detected Steve/B-Vanco Res Genes N/A KPC (blaKPC) Detect PCR N/A 11/28/16 11/28/16 11/28/16 13:12 13:45 13:45 WBC 13.9 H RBC 4.36 Hgb 12.0 L Hct 36.5 L MCV 83.7 MCH 27.5 L MCHC 32.9 RDW 14.6 H Plt Count 298 MPV 8.4 L Immature Gran % 2.9 Seg Neutrophils % 83.2 Lymphocytes % 7.3 Monocytes % 5.8 Eosinophils % 0.4 Basophils % 0.4 Neutrophils # 11.6 H Lymphocytes # 1.0 Monocytes # 0.8 Eosinophils # 0.1 Basophils # 0.1 Sodium 132 L Potassium 3.7 Chloride 99 Carbon Dioxide 26 BUN 38 H D Creatinine 1.82 H D Est GFR ( Amer) 45 L Est GFR (Non-Af Amer) 37 L BUN/Creatinine Ratio 21 Glucose 278 H POC Glucose 228 H Calculated Osmolality 293 Calcium 8.4 L Total Bilirubin AST ALT Alkaline Phosphatase Serum Total Protein Albumin Globulin Albumin/Globulin Ratio Urine Color Urine Clarity Urine pH Ur Specific [place] Urine Protein Urine Glucose (UA) Urine Ketones Urine Blood Urine Nitrite Urine Bilirubin Urine Urobilinogen Ur Leukocyte Esterase Urine Microscopic RBC Urine Microscopic WBC Ur Squamous Epith Cells Urine Bacteria Hyaline Casts Urine Yeast Ur Culture Indicated? Vancomycin Trough A. baumannii (PCR) Carol albicans (PCR) C. glabrata (PCR) C. krusei (PCR) C. parapsilosis (PCR) C. tropicalis (PCR) Enterobacteriac sp PCR E. cloacae complex PCR Enterococcus sp PCR E. coli (PCR) H. influenzae (PCR) Klebsiella oxytoca PCR Klebsiella pneumoniae List. monocytogenes PCR N. meningitidis (PCR) Proteus species (PCR) Serratia marcescens PCR Staphylococcus sp PCR Staph aureus (PCR) mecA-Methicil Res Gene Streptococcus sp PCR Group A Strep DNA Group B Strep (PCR) Strep pneumoniae (PCR) P. aeruginosa (PCR) Steve/B-Vanco Res Genes KPC (blaKPC) Detect PCR 11/28/16 11/28/16 11/29/16 15:44 20:13 05:42 WBC RBC Hgb Hct MCV MCH MCHC RDW Plt Count MPV Immature Gran % Seg Neutrophils % Lymphocytes % Monocytes % Eosinophils % Basophils % Neutrophils # Lymphocytes # Monocytes # Eosinophils # Basophils # Sodium Potassium Chloride Carbon Dioxide BUN Creatinine Est GFR ( Amer) Est GFR (Non-Af Amer) BUN/Creatinine Ratio Glucose POC Glucose 272 H 217 H 308 H Calculated Osmolality Calcium Total Bilirubin AST ALT Alkaline Phosphatase Serum Total Protein Albumin Globulin Albumin/Globulin Ratio Urine Color Urine Clarity Urine pH Ur Specific [place] Urine Protein Urine Glucose (UA) Urine Ketones Urine Blood Urine Nitrite Urine Bilirubin Urine Urobilinogen Ur Leukocyte Esterase Urine Microscopic RBC Urine Microscopic WBC Ur Squamous Epith Cells Urine Bacteria Hyaline Casts Urine Yeast Ur Culture Indicated? Vancomycin Trough A. baumannii (PCR) Carol albicans (PCR) C. glabrata (PCR) C. krusei (PCR) C. parapsilosis (PCR) C. tropicalis (PCR) Enterobacteriac sp PCR E. cloacae complex PCR Enterococcus sp PCR E. coli (PCR) H. influenzae (PCR) Klebsiella oxytoca PCR Klebsiella pneumoniae List. monocytogenes PCR N. meningitidis (PCR) Proteus species (PCR) Serratia marcescens PCR Staphylococcus sp PCR Staph aureus (PCR) mecA-Methicil Res Gene Streptococcus sp PCR Group A Strep DNA Group B Strep (PCR) Strep pneumoniae (PCR) P. aeruginosa (PCR) Steve/B-Vanco Res Genes KPC (blaKPC) Detect PCR 06/22/17 06/22/17 06/22/17 09:16 10:05 11:39 WBC RBC Hgb Hct MCV MCH MCHC RDW Plt Count MPV Immature Gran % Seg Neutrophils % Lymphocytes % Monocytes % Eosinophils % Basophils % Neutrophils # Lymphocytes # Monocytes # Eosinophils # Basophils # Sodium Potassium Chloride Carbon Dioxide BUN Creatinine Est GFR ( Amer) Est GFR (Non-Af Amer) BUN/Creatinine Ratio Glucose POC Glucose 249 H Calculated Osmolality Calcium Total Bilirubin AST ALT Alkaline Phosphatase Serum Total Protein Albumin Globulin Albumin/Globulin Ratio Urine Color Dark Yellow Urine Clarity Turbid A Urine pH 5.0 Ur Specific [place] 1.020 Urine Protein Trace Urine Glucose (UA) Normal Urine Ketones Negative Urine Blood Large H Urine Nitrite Negative Urine Bilirubin Small H Urine Urobilinogen Normal Ur Leukocyte Esterase Moderate H Urine Microscopic RBC 5-15 H Urine Microscopic WBC TNTC H Ur Squamous Epith Cells Many H Urine Bacteria None Seen Hyaline Casts None Seen Urine Yeast Many H Ur Culture Indicated? YES A Vancomycin Trough 29.8 H* A. baumannii (PCR) Carol albicans (PCR) C. glabrata (PCR) C. krusei (PCR) C. parapsilosis (PCR) C. tropicalis (PCR) Enterobacteriac sp PCR E. cloacae complex PCR Enterococcus sp PCR E. coli (PCR) H. influenzae (PCR) Klebsiella oxytoca PCR Klebsiella pneumoniae List. monocytogenes PCR N. meningitidis (PCR) Proteus species (PCR) Serratia marcescens PCR Staphylococcus sp PCR Staph aureus (PCR) mecA-Methicil Res Gene Streptococcus sp PCR Group A Strep DNA Group B Strep (PCR) Strep pneumoniae (PCR) P. aeruginosa (PCR) Steve/B-Vanco Res Genes KPC (blaKPC) Detect PCR 11/29/16 11/29/16 11:49 11:49 WBC 13.7 H RBC 4.40 Hgb 12.1 L Hct 36.4 L MCV 82.7 L MCH 27.5 L MCHC 33.2 RDW 14.6 H Plt Count 323 MPV 8.7 L Immature Gran % 2.9 Seg Neutrophils % 84.4 Lymphocytes % 7.9 Monocytes % 4.5 Eosinophils % 0.1 Basophils % 0.2 Neutrophils # 11.6 H Lymphocytes # 1.1 Monocytes # 0.6 Eosinophils # 0.0 Basophils # 0.0 Sodium 132 L Potassium 3.9 Chloride 99 Carbon Dioxide 24 BUN 60 H D Creatinine 2.64 H Est GFR ( Amer) 29 L Est GFR (Non-Af Amer) 24 L BUN/Creatinine Ratio 23 Glucose 273 H POC Glucose Calculated Osmolality 301 H Calcium 8.5 L Total Bilirubin 0.7 AST 17 ALT 13 Alkaline Phosphatase 123 Serum Total Protein 6.3 Albumin 1.4 L Globulin 4.9 H Albumin/Globulin Ratio 0.3 L Urine Color Urine Clarity Urine pH Ur Specific [place] Urine Protein Urine Glucose (UA) Urine Ketones Urine Blood Urine Nitrite Urine Bilirubin Urine Urobilinogen Ur Leukocyte Esterase Urine Microscopic RBC Urine Microscopic WBC Ur Squamous Epith Cells Urine Bacteria Hyaline Casts Urine Yeast Ur Culture Indicated? Vancomycin Trough 27.8 H* A. baumannii (PCR) Carol albicans (PCR) C. glabrata (PCR) C. krusei (PCR) C. parapsilosis (PCR) C. tropicalis (PCR) Enterobacteriac sp PCR E. cloacae complex PCR Enterococcus sp PCR E. coli (PCR) H. influenzae (PCR) Klebsiella oxytoca PCR Klebsiella pneumoniae List. monocytogenes PCR N. meningitidis (PCR) Proteus species (PCR) Serratia marcescens PCR Staphylococcus sp PCR Staph aureus (PCR) mecA-Methicil Res Gene Streptococcus sp PCR Group A Strep DNA Group B Strep (PCR) Strep pneumoniae (PCR) P. aeruginosa (PCR) Steve/B-Vanco Res Genes KPC (blaKPC) Detect PCR Cultures: Cultures 11/27/16 09:16 Blood Culture - Preliminary Peripheral Venipuncture No growth. 11/26/16 04:42 Blood Culture - Preliminary Peripheral Venipuncture Gram Positive Cocci - Clusters 11/27/16 09:04 Blood Culture - Preliminary Peripheral Venipuncture Gram Positive Cocci 11/23/16 16:43 Anaerobic Culture - Final Left Knee No anaerobes were recovered. 11/25/16 04:37 Blood Culture - Preliminary Peripheral Venipuncture No growth. 11/24/16 05:48 Blood Culture - Final Peripheral Venipuncture Methicillin Resistant S.aureus 11/22/16 04:05 Blood Culture - Final Peripheral Venipuncture Methicillin Resistant S.aureus 11/22/16 04:12 Blood Culture - Final Peripheral Venipuncture Methicillin Resistant S.aureus 11/23/16 16:43 Wound Culture - Final Left Knee Methicillin Resistant S.aureus Serology 11/29/16 11/27/16 11/26/16 Range/Units 10:05 09:04 04:42 Urine Color Dark Yellow (Yellow) Urine Clarity Turbid A (Clear) Urine pH 5.0 (5.0-8.0) pH Units Ur Specific [place] 1.020 (1.010-1.025) Urine Protein Trace (Neg-Trace) mg/dL Urine Glucose (UA) Normal (Normal) mg/dL Urine Ketones Negative (Negative) mg/dL Urine Blood Large H (Negative) Urine Nitrite Negative (Negative) Urine Bilirubin Small H (Negative) Urine Urobilinogen Normal (Normal) mg/dL Ur Leukocyte Esterase Moderate H (Negative) Urine Microscopic RBC 5-15 H (0-3) per hpf Urine Microscopic WBC TNTC H (0-3) per hpf Ur Squamous Epith Cells Many H (None-Few) per lpf Urine Bacteria None Seen (None-Few) per hpf Hyaline Casts None Seen (None-Few) per lpf Urine Yeast Many H (None Seen) per hpf Ur Culture Indicated? YES A (NO) Urine Creatinine mg/dL Urine Sodium mEq/L Urine Urea Nitrogen mg/dL A. baumannii (PCR) Not Detected Not Detected (Not Detect) Carol albicans (PCR) Not Detected Not Detected (Not Detect) C. glabrata (PCR) Not Detected Not Detected (Not Detect) C. krusei (PCR) Not Detected Not Detected (Not Detect) C. parapsilosis (PCR) Not Detected Not Detected (Not Detect) C. tropicalis (PCR) Not Detected Not Detected (Not Detect) Enterobacteriac sp PCR Not Detected Not Detected (Not Detect) E. cloacae complex PCR Not Detected Not Detected (Not Detect) Enterococcus sp PCR Not Detected Not Detected (Not Detect) E. coli (PCR) Not Detected Not Detected (Not Detect) H. influenzae (PCR) Not Detected Not Detected (Not Detect) Klebsiella oxytoca PCR Not Detected Not Detected (Not Detect) Klebsiella pneumoniae Not Detected Not Detected (Not Detect) List. monocytogenes PCR Not Detected Not Detected (Not Detect) N. meningitidis (PCR) Not Detected Not Detected (Not Detect) Proteus species (PCR) Not Detected Not Detected (Not Detect) Serratia marcescens PCR Not Detected Not Detected (Not Detect) Staphylococcus sp PCR DETECTED A DETECTED A (Not Detect) Staph aureus (PCR) DETECTED A DETECTED A (Not Detect) mecA-Methicil Res Gene DETECTED A DETECTED A (Not Detect) Streptococcus sp PCR Not Detected Not Detected (Not Detect) Group A Strep DNA Not Detected Not Detected (Not Detect) Group B Strep (PCR) Not Detected Not Detected (Not Detect) Strep pneumoniae (PCR) Not Detected Not Detected (Not Detect) P. aeruginosa (PCR) Not Detected Not Detected (Not Detect) Steve/B-Vanco Res Genes N/A N/A (Not Detect) KPC (blaKPC) Detect PCR N/A N/A (Not Detect) 11/24/16 11/22/16 11/22/16 Range/Units 05:48 23:39 04:12 Urine Color (Yellow) Urine Clarity (Clear) Urine pH (5.0-8.0) pH Units Ur Specific [place] (1.010-1.025) Urine Protein (Neg-Trace) mg/dL Urine Glucose (UA) (Normal) mg/dL Urine Ketones (Negative) mg/dL Urine Blood (Negative) Urine Nitrite (Negative) Urine Bilirubin (Negative) Urine Urobilinogen (Normal) mg/dL Ur Leukocyte Esterase (Negative) Urine Microscopic RBC (0-3) per hpf Urine Microscopic WBC (0-3) per hpf Ur Squamous Epith Cells (None-Few) per lpf Urine Bacteria (None-Few) per hpf Hyaline Casts (None-Few) per lpf Urine Yeast (None Seen) per hpf Ur Culture Indicated? (NO) Urine Creatinine 208 mg/dL Urine Sodium 20.0 mEq/L Urine Urea Nitrogen 377 mg/dL A. baumannii (PCR) Not Detected Not Detected (Not Detect) Carol albicans (PCR) Not Detected Not Detected (Not Detect) C. glabrata (PCR) Not Detected Not Detected (Not Detect) C. krusei (PCR) Not Detected Not Detected (Not Detect) C. parapsilosis (PCR) Not Detected Not Detected (Not Detect) C. tropicalis (PCR) Not Detected Not Detected (Not Detect) Enterobacteriac sp PCR Not Detected Not Detected (Not Detect) E. cloacae complex PCR Not Detected Not Detected (Not Detect) Enterococcus sp PCR Not Detected Not Detected (Not Detect) E. coli (PCR) Not Detected Not Detected (Not Detect) H. influenzae (PCR) Not Detected Not Detected (Not Detect) Klebsiella oxytoca PCR Not Detected Not Detected (Not Detect) Klebsiella pneumoniae Not Detected Not Detected (Not Detect) List. monocytogenes PCR Not Detected Not Detected (Not Detect) N. meningitidis (PCR) Not Detected Not Detected (Not Detect) Proteus species (PCR) Not Detected Not Detected (Not Detect) Serratia marcescens PCR Not Detected Not Detected (Not Detect) Staphylococcus sp PCR DETECTED A DETECTED A (Not Detect) Staph aureus (PCR) DETECTED A DETECTED A (Not Detect) mecA-Methicil Res Gene DETECTED A DETECTED A (Not Detect) Streptococcus sp PCR Not Detected Not Detected (Not Detect) Group A Strep DNA Not Detected Not Detected (Not Detect) Group B Strep (PCR) Not Detected Not Detected (Not Detect) Strep pneumoniae (PCR) Not Detected Not Detected (Not Detect) P. aeruginosa (PCR) Not Detected Not Detected (Not Detect) Steve/B-Vanco Res Genes Not Detected N/A (Not Detect) KPC (blaKPC) Detect PCR Not Detected N/A (Not Detect) Exam - Constitutional Vitals: Temp Pulse Resp BP Pulse Ox 98.5 F 75 17 123/75 97 11/29/16 11:41 11/29/16 11:41 11/29/16 11:41 11/29/16 11:41 11/29/16 11:41 General appearance: cooperative, morbidly obese, no acute distress - Head Head exam: Present: atraumatic, normal inspection, normocephalic - Eye Eye exam: Present: EOMI, normal appearance, PERRL Pupils: Present: normal accommodation Additional comments: No subconjunctival hemorrhage noted. - ENT ENT exam: Present: mucous membranes moist Additional comments: Poor dentition noted. - Neck Neck exam: Present: normal inspection - Respiratory Respiratory exam: Present: CTAB. Absent: rales, respiratory distress, rhonchi, wheezes - Cardiovascular Cardiovascular exam: Present: RRR, +S1, +S2 - GI/Abdominal GI/Abdominal exam: Present: distended (obese), normal bowel sounds, soft. Absent: tenderness Additional comments: Ecchymosis noted to the left lower abdomen. Elizalde catheter noted to be draining dark yellow urine. - Extremities Exam Extremities exam: Present: joint swelling (left knee), tenderness (left knee). Absent: pedal edema Additional comments: Left knee edematous with mild erythema and warmth. Arthroscopic surgery incisions C/D/I with wound edges well-approximated and sutures intact. No purulence noted. - Neurological Exam Neurological exam: Present: alert, oriented X3, no focal deficits - Psychiatric Psychiatric exam: Present: normal affect, normal mood - Skin Skin exam: Present: dry, intact, normal color, warm Additional comments: No endocarditis stigmata noted. Consult Discharge Plan - Plan Referrals: Mercedez Harvey PAC [Physician Mri Assistant] - 12/05/16 10:00 am Bladimir Aguirre MD [Partnered Physician] - 01/02/17 3:55 pm Louise Hays MD [Partnered Physician] - 12/10/16 4:00 pm - Attending Attestation I examined this patient and my medical decision-making was reviewed with the ORTHOPEDICALLY IMPAIRED TEACHER/PA/Advanced Practice Nurse/Resident Physician. I agree with the documented findings, disposition and treatment plan as described except to the extent set forth below.
[2016-11-29] MEDS ORDERED: *HR* FentaNYL (PF) 100 MCG/2 ML VIAL ONE (14:02)
[2016-11-29] MEDS ORDERED: Ondansetron 4 MG/2 ML VIAL ONE (14:02)
[2016-11-29] MEDS ORDERED: *HR* Propofol 200 MG/20 ML VIAL IVP ONE (14:02)
--- NOTE | 2016-11-29 14:02 | Orthopedic Operative Note ---
Date of procedure: 11/29/16 Pre-op diagnosis: Resistant left knee infection Post-op diagnosis: same Procedure: Procedure: Open irrigation debridement left knee Estimated blood loss: 20 mL Findings patient with severe arthritis had arthroscopic irrigation debridement possibly 5 days ago persistent bacteremia no resolution patient was indicated for open arthrotomy irrigation debridement. Procedure: Patient brought to the operative placement operative table after general anesthesia was administered left knee was examined patient to have significant restriction of motion was full extension 40 degrees flexion to only 60 degrees sutures were removed and then the left lower extremity was prepped and draped sterile surgical fashion patient received IV antibiotic brisk incision A midline incision was made centered over the patella and incision made through skin subcutaneous tissue hemostasis was obtained with Bovie cautery, using careful sharp dissection the extensor mechanism was identified, a medial arthrotomy was performed. No purulent fluid was identified just turbid serosanguineous fluid. Cultures were obtained. The knee was first irrigated out with Bactisure. Then sat for 2 minutes with a Betadine saline solution. A synovectomy was performed the knee was then irrigated out with 3 L of pulse irrigation. The arthrotomy was closed with a running #1 PDS suture subcutaneous tissues and closed deep #1 PDS suture superficially with 0 PDS suture skin was closed with skin shamar patient was sterile dressing postoperative brace. Extubated and then transferred to recovery room stable condition. Anesthesia: TONEYA Surgeon: Bladimir Aguirre Resolution Agent: Mercedez Harvey Condition: stable Disposition: PACU
[2016-11-29] MEDS ORDERED: *HR* Succinylcholine 200 MG/10 ML VIAL IVP ONE (14:03)
[2016-11-29] MEDS ORDERED: Lidocaine -MPF 2% 2 ML VIAL ONE (14:03)
[2016-11-29] MEDS ORDERED: *HR* HYDROmorphone (PF) 1 MG/ML SYRINGE IVP PRN (14:06)
[2016-11-29] MEDS ORDERED: Ondansetron 4 MG/2 ML VIAL IVP ONE (14:06)
--- NOTE | 2016-11-29 15:29 | Anesthesia Evaluation Post Op ---
Date of Encounter: 11/29/16 Time of Encounter: 15:28 - Vital Signs Vital Signs: Vital Signs/O2 Sat, Most Current Temp Pulse Resp BP Pulse Ox 97.2 F L 68 20 95/49 99 11/29/16 14:56 11/29/16 15:16 11/29/16 15:16 11/29/16 15:16 11/29/16 15:16 - Lungs Lungs: Clear Ascult./Percussion - Airway Airway: Non-obstructed - Cardiovascular Regular Rate - Mental Status Mental Status: Alert & Oriented, Answers Appropriately - Pain Pain Scale: 5 (states pain is chronic low back pain) - Nausea Vomiting Nausea Vomiting: Not Present - Hydration Hydration: NPO - Discharge PostOp Status: Transfer Patient to floor
[2016-11-29] MEDS ORDERED: *HR* Dextrose 50 % in Water (Syg) 50 ML SYRINGE IVP PRN (16:01)
[2016-11-29] MEDS ORDERED: D5% in Water 1,000 ML IVC PRN (16:01)
[2016-11-29] MEDS ORDERED: Dextrose Gel 15 GM PO PRN ×2 (16:01)
[2016-11-29] MEDS ORDERED: Naloxone 0.4 MG/ML INJ IVP PRN (16:01)
[2016-11-29] MEDS ORDERED: Ondansetron 4 MG/2 ML VIAL IVP PRN (16:01)
[2016-11-29] MEDS ORDERED: Temazepam 15 MG CAPSULE PO PRN (16:01)
[2016-11-29] MEDS ORDERED: MOM Conc 10 ML UD.LIQ PO PRN (16:01)
[2016-11-29] MEDS ORDERED: Sennosides 8.6 MG TABLET PO PRN (16:01)
[2016-11-29] MEDS: *HR* OxyCODONE Immed Rel 5 MG TABLET PO PRN ×2 (16:15→23:42)
[2016-11-29] MEDS ORDERED: Insulin DETEMIR 100 UNIT/ML X5UNITS SQ SCH (21:00)
[2016-11-30] MEDS: Miconazole w/zinc oxide&karaya 92 APPL/92 GM TUBE TP SCH ×3 (02:06→15:47)
[2016-11-30] MEDS: Nystatin POWDER 30 GM BOTTLE TP SCH ×3 (02:07→15:48)
[2016-11-30] MEDS: *HR* Heparin 5,000 UNIT/ML VIAL SQ SCH ×2 (06:46→18:26)
[2016-11-30] MEDS: Gabapentin 300 MG CAPSULE PO SCH (08:10)
[2016-11-30] MEDS: *HR* OxyCODONE Immed Rel 5 MG TABLET PO PRN (08:12)
[2016-11-30] MEDS: Insulin LISPRO 300 UNITS/3 ML VIAL SQ SCH ×6 (08:17→16:03)
[2016-11-30] MEDS ORDERED: Aspirin Enteric Coated 81 MG Tablet PO SCH (09:00)
[2016-11-30] MEDS ORDERED: amLODIPine 5 MG TABLET PO SCH (09:00)
[2016-11-30] MEDS ORDERED: Cholecalciferol (D-3) 1,000 UNIT TABLET PO SCH (09:00)
[2016-11-30] MEDS ORDERED: Multivit/Ca/Min/Fe/FA 1 TAB TABLET PO SCH (09:00)
[2016-11-30 09:11] LABS: Basophils % 0.2 %; Eosinophils # 0.1 K/mcL (0.0-0.6); Eosinophils % 0.5 %; Hematocrit 36.8 % (37.5-50.1); Hemoglobin 12.1 g/dL (12.9-16.9); Immature Granulocytes % 1.9 % (0-4); Immature Platelets 0.7 % (1.1-6.1); Lymphocytes % 7.5 %; Mean Corpuscular HGB Conc 32.9 g/dL (31.6-35.5); Mean Corpuscular Hemoglobin 27.6 pg (28.0-33.3); Mean Corpuscular Volume 83.8 fL (83.0-100.0); Mean Platelet Volume 8.1 fL (9.4-12.4); Monocytes # 0.6 K/mcL (0.0-1.3); Monocytes % 4.7 %; Neutrophils # 10.9 K/mcL (1.6-8.9); Platelet Count 424 K/mcL (140-400); Red Blood Count 4.39 M/mcL (4.19-5.50); Red Cell Distribution Width 14.7 % (11.5-14.5); Segmented Neutrophils % 85.2 %
[2016-11-30 09:24] LABS: Albumin/Globulin Ratio 0.3 (1.1-2.2); Bilirubin,Total 0.6 mg/dL (0.2-1.2); Calcium 8.3 mg/dL (8.6-10.8); Potassium 4.2 mEq/L (3.5-4.5); Total Protein 6.4 g/dL (6.0-8.3)
[2016-11-30 09:25] LABS: Albumin 1.4 g/dL (3.5-5.0)
--- NOTE | 2016-11-30 10:50 | Infectious Disease Progress No ---
Date of Encounter: 11/30/16 Time of Encounter: 10:48 - Assessment and Plan (1) Sepsis Current Visit: Yes Status: Acute The patient had 2 SIRS criteria on admission. Likely secondary to bacteremia and left knee septic arthritis. Improved. White blood cell count trending down. Tachycardia resolved. The patient has been afebrile. Cultures drawn 11/22/16 are +2 out of 2 sets for MRSA. Repeat blood culture drawn 11/24/16 are positive 1/1 set. Repeat blood culture drawn 11/25/16 is NGTD. Additional blood culture drawn 11/26/16 is positive 1/1 sets for MRSA. Additional two sets of blood cultures drawn 11/27/16 are positive 1/2 sets as well. Repeat blood cultures x 2 sets in the AM. Qualifiers: Sepsis type: methicillin resistant Staphylococcus aureus Qualified Code(s) : A41.02 - Sepsis due to Methicillin resistant Staphylococcus aureus (2) Bacteremia due to Gram-positive bacteria Current Visit: Yes Status: Acute Causative organism: MRSA. Source likely left knee septic arthritis. Complicated due to seeding of the kidneys/urine. Blood cultures drawn 11/22/16 are +2 out of 2 sets for MRSA. Repeat blood culture drawn 11/24/16 are positive 1/1 set. Repeat blood culture drawn 11/25/16 is positive 1/1 sets. Additional blood culture drawn 11/26/16 is NGTD. Additional two sets of blood cultures drawn 11/27/16 are positive 1/2 sets as well. The patient has no endocarditis stigmata noted on physical exam. He meets one major and one minor Modified [place] criteria at this point. TTE negative for valvular vegetations. Will need BERNARDO prior to discharge. The patient continues to have persistent bacteremia. Etiology unclear, but could be an issue with source control vs. sub-therapeutic serum vanc levels due to patient's improving renal function vs. Vanc KENNY 2. Status post open I & D of the left knee 11/29/[address] Aguirre. Operative report reviewed. Large amount of serosanguinous, turbid fluid noted. Also concern about possible dental infection, although dental infection is an unlikely source of MRSA bacteremia. Continue vancomycin IV for now. Pharmacy to dose. Goal trough approximately 15. Most recent vanc level 25.3 this morning. Dosing discussed with Denny Baig. If patient continues to bacteremic, we may need to consider switching antibiotics, but will continue Vancomycin for now. Duration of treatment depends on the clinical picture, but likely 4 weeks given the complicated nature of the bacteremia. Await repeat blood cultures. Get another sets x 2 in the AM. Avoid the insertion of central venous access until repeat blood cultures are negative 48 hours. Monitor renal function and for drug toxicity and dose adjust antibiotics. Continue contact precautions per protocol. (3) Septic arthritis of knee, left Current Visit: Yes Status: Acute Location: Left knee. Etiology not entirely clear. The patient has no indwelling hardware. He denies any injury prior to the fall the day before admission. Causative organism MRSA. Left knee x-ray showed a small to moderate suprapatellar knee effusion. Status post arthrocentesis 11/21/16 in the emergency department. No sample was sent for cell count. Culture positive for MRSA. Orthopedics has been consulted. Status post arthroscopic washout 11/23/[address] Aguirre. Operative report reviewed. Intra-operative cultures positive for MRSA. ESR and CRP are markedly elevated. Repeat CRP is improving. The patient was taken back to the OR 11/29/16 for open I & D of the left knee by Dr. Aguirre. Operative report reviewed. Large amount of turbid, serosanguinous drainage noted. Continue antibiotics as above. Continue wound care and activity restrictions as outlined by the ortho team. Duration of treatment depends on the clinical picture. Typically, we would treat for two weeks with IV antibiotics followed by two weeks of orals, but due to the patient's complicated bacteremia, he will require a full four week course of IV antibiotics. Qualifiers: Septic arthritis organism: staphylococcal Qualified Code(s): M00.062 - Staphylococcal arthritis, left knee (4) Acute on chronic kidney failure Current Visit: Yes Status: Acute Serum creatinine elevated at 2.48 on admission, but serum creatinine on the rise again. Nephrology has been consulted. Previous retroperitoneal ultrasound negative. Continue to monitor. Avoid nephrotoxins as able. Dose adjust antibiotics and other medications based on creatinine clearance. (5) Asymptomatic bacteriuria Current Visit: Yes Status: Acute Urinalysis obtained in the emergency department shows trace leukocyte esterase, 5-15 white blood cells, but many epithelial cells. Urine culture is positive for MRSA. This is likely seeding of the kidneys/ urine. The patient has been asymptomatic. Normally, there would be no indication to treat, but given the patient's bacteremia he will require antibiotics. (6) Hyponatremia Current Visit: Yes Status: Acute Serum sodium level 128 on admission. Improved. Management per the primary team. (7) Hyperglycemia Current Visit: Yes Status: Acute Serum glucose greater than 600 on arrival. Likely multifactorial--> infectious process, poorly controlled diabetes, etc. Improved. Further management per the primary team. (8) Hyperkalemia Current Visit: Yes Status: Resolved Likely secondary to acute kidney injury. Resolved. (9) Diabetes mellitus type 2 in obese Current Visit: Yes Status: Acute Uncontrolled. Hemoglobin A1c 12.2. Recommend aggressive glucose monitoring and control to promote wound healing and prevent reinfection. (10) Poor dentition Current Visit: Yes Status: Acute Patient with several missing and broken teeth with one decaying tooth left. States he felt something "pop" in his mouth and had foul-tasting drainage. Although unlikely source of the patient's bacteremia, will evaluate for dental abscess. Discussed with radiology. Recommends CT of the maxillofacial bones with contrast. Due to the patient's NIKKO, will not be able to use contrast. Findings reveal no evidence of abscess, but did reveal neck mass. See below. (11) Neck mass Current Visit: Yes Status: Acute CT of the maxillofacial bones completed to evaluate for dental abscess. 3.7 x 4.5 x 5.7cm irregular soft tissue mass in the deep right neck superficial to the right carotid arteries and deep to the right sternocleidomastoid muscle with lateral discplacement of the deep lobe of the right parotid gland. According to radiologist, these findings are likely related to neoplastic process, such as conglomerate of metastatic lymph nodes vs. primary neoplasm. Addition radiological studies recommended to further evaluate. Attempted to consult ENT, but no coverage today. Discussed with Dr. Kessler with the hospitalist team and made him aware that there is no ENT coverage. Recommend transfer to hospital with ENT service coverage for further evaluation. (12) Morbid obesity with BMI of 45.0-49.9, adult Current Visit: Yes Status: Chronic - Subjective Interval history: Patient seen and examined. No acute events noted overnight. Status post open I & D of the left knee 11/29/[address] Aguirre. Patient resting in bed. Complains of pain in the left knee and back, not much better today than yesterday. Denies fevers or chills. Denies chest pain, shortness of breath, or cough. Denies nausea, vomiting, or diarrhea. Elizalde catheter remains in place. Denies oral thrush or new skin lesions. The patient complains of right lower jaw pain and states he felt something "pop" in his mouth with foul-tasting drainage. Infect Dis PN-Objective Data - Labs CBC & Chem 7: 11/30/16 09:03 11/30/16 09:03 Labs: Laboratory Results - last 24 hr 11/29/16 11/29/16 11/29/16 10:05 11:39 11:49 WBC RBC Hgb Hct MCV MCH MCHC RDW Plt Count MPV Immature Gran % Seg Neutrophils % Lymphocytes % Monocytes % Eosinophils % Basophils % Neutrophils # Lymphocytes # Monocytes # Eosinophils # Basophils # Immature Plt Fraction Sodium 132 L Potassium 3.9 Chloride 99 Carbon Dioxide 24 BUN 60 H D Creatinine 2.64 H Est GFR ( Amer) 29 L Est GFR (Non-Af Amer) 24 L BUN/Creatinine Ratio 23 Glucose 273 H POC Glucose 249 H Calculated Osmolality 301 H Calcium 8.5 L Total Bilirubin 0.7 AST 17 ALT 13 Alkaline Phosphatase 123 Serum Total Protein 6.3 Albumin 1.4 L Globulin 4.9 H Albumin/Globulin Ratio 0.3 L Urine Microscopic RBC 5-15 H Urine Microscopic WBC TNTC H Ur Squamous Epith Cells Many H Urine Bacteria None Seen Hyaline Casts None Seen Urine Yeast Many H Ur Culture Indicated? YES A Vancomycin Trough 27.8 H* Random Vancomycin 11/29/16 11/29/16 11/29/16 11:49 14:34 16:36 WBC 13.7 H RBC 4.40 Hgb 12.1 L Hct 36.4 L MCV 82.7 L MCH 27.5 L MCHC 33.2 RDW 14.6 H Plt Count 323 MPV 8.7 L Immature Gran % 2.9 Seg Neutrophils % 84.4 Lymphocytes % 7.9 Monocytes % 4.5 Eosinophils % 0.1 Basophils % 0.2 Neutrophils # 11.6 H Lymphocytes # 1.1 Monocytes # 0.6 Eosinophils # 0.0 Basophils # 0.0 Immature Plt Fraction Sodium Potassium Chloride Carbon Dioxide BUN Creatinine Est GFR ( Amer) Est GFR (Non-Af Amer) BUN/Creatinine Ratio Glucose POC Glucose 165 H 125 H Calculated Osmolality Calcium Total Bilirubin AST ALT Alkaline Phosphatase Serum Total Protein Albumin Globulin Albumin/Globulin Ratio Urine Microscopic RBC Urine Microscopic WBC Ur Squamous Epith Cells Urine Bacteria Hyaline Casts Urine Yeast Ur Culture Indicated? Vancomycin Trough Random Vancomycin 11/29/16 11/30/16 11/30/16 20:32 05:43 09:03 WBC 12.8 H RBC 4.39 Hgb 12.1 L Hct 36.8 L MCV 83.8 MCH 27.6 L MCHC 32.9 RDW 14.7 H Plt Count 424 H MPV 8.1 L Immature Gran % 1.9 Seg Neutrophils % 85.2 Lymphocytes % 7.5 Monocytes % 4.7 Eosinophils % 0.5 Basophils % 0.2 Neutrophils # 10.9 H Lymphocytes # 1.0 Monocytes # 0.6 Eosinophils # 0.1 Basophils # 0.0 Immature Plt Fraction 0.7 L Sodium Potassium Chloride Carbon Dioxide BUN Creatinine Est GFR ( Amer) Est GFR (Non-Af Amer) BUN/Creatinine Ratio Glucose POC Glucose 182 H Calculated Osmolality Calcium Total Bilirubin AST ALT Alkaline Phosphatase Serum Total Protein Albumin Globulin Albumin/Globulin Ratio Urine Microscopic RBC Urine Microscopic WBC Ur Squamous Epith Cells Urine Bacteria Hyaline Casts Urine Yeast Ur Culture Indicated? Vancomycin Trough Random Vancomycin 25.3 11/30/16 09:03 WBC RBC Hgb Hct MCV MCH MCHC RDW Plt Count MPV Immature Gran % Seg Neutrophils % Lymphocytes % Monocytes % Eosinophils % Basophils % Neutrophils # Lymphocytes # Monocytes # Eosinophils # Basophils # Immature Plt Fraction Sodium 134 L Potassium 4.2 Chloride 100 Carbon Dioxide 25 BUN 71 H Creatinine 3.07 H Est GFR ( Amer) 25 L Est GFR (Non-Af Amer) 20 L BUN/Creatinine Ratio 23 Glucose 172 H POC Glucose Calculated Osmolality 303 H Calcium 8.3 L Total Bilirubin 0.6 AST 18 ALT 12 Alkaline Phosphatase 116 Serum Total Protein 6.4 Albumin 1.4 L Globulin 5.0 H Albumin/Globulin Ratio 0.3 L Urine Microscopic RBC Urine Microscopic WBC Ur Squamous Epith Cells Urine Bacteria Hyaline Casts Urine Yeast Ur Culture Indicated? Vancomycin Trough Random Vancomycin Cultures: Cultures 11/27/16 09:04 Blood Culture - Final Peripheral Venipuncture Methicillin Resistant S.aureus 11/25/16 04:37 Blood Culture - Final Peripheral Venipuncture No growth. 11/27/16 09:16 Blood Culture - Preliminary Peripheral Venipuncture No growth. 11/26/16 04:42 Blood Culture - Preliminary Peripheral Venipuncture Gram Positive Cocci - Clusters 11/23/16 16:43 Anaerobic Culture - Final Left Knee No anaerobes were recovered. 11/24/16 05:48 Blood Culture - Final Peripheral Venipuncture Methicillin Resistant S.aureus 11/22/16 04:05 Blood Culture - Final Peripheral Venipuncture Methicillin Resistant S.aureus 11/22/16 04:12 Blood Culture - Final Peripheral Venipuncture Methicillin Resistant S.aureus 11/23/16 16:43 Wound Culture - Final Left Knee Methicillin Resistant S.aureus Serology 11/29/16 11/27/16 11/26/16 Range/Units 10:05 09:04 04:42 Urine Color Dark Yellow (Yellow) Urine Clarity Turbid A (Clear) Urine pH 5.0 (5.0-8.0) pH Units Ur Specific [place] 1.020 (1.010-1.025) Urine Protein Trace (Neg-Trace) mg/dL Urine Glucose (UA) Normal (Normal) mg/dL Urine Ketones Negative (Negative) mg/dL Urine Blood Large H (Negative) Urine Nitrite Negative (Negative) Urine Bilirubin Small H (Negative) Urine Urobilinogen Normal (Normal) mg/dL Ur Leukocyte Esterase Moderate H (Negative) Urine Microscopic RBC 5-15 H (0-3) per hpf Urine Microscopic WBC TNTC H (0-3) per hpf Ur Squamous Epith Cells Many H (None-Few) per lpf Urine Bacteria None Seen (None-Few) per hpf Hyaline Casts None Seen (None-Few) per lpf Urine Yeast Many H (None Seen) per hpf Ur Culture Indicated? YES A (NO) Urine Creatinine mg/dL Urine Sodium mEq/L Urine Urea Nitrogen mg/dL A. baumannii (PCR) Not Detected Not Detected (Not Detect) Carol albicans (PCR) Not Detected Not Detected (Not Detect) C. glabrata (PCR) Not Detected Not Detected (Not Detect) C. krusei (PCR) Not Detected Not Detected (Not Detect) C. parapsilosis (PCR) Not Detected Not Detected (Not Detect) C. tropicalis (PCR) Not Detected Not Detected (Not Detect) Enterobacteriac sp PCR Not Detected Not Detected (Not Detect) E. cloacae complex PCR Not Detected Not Detected (Not Detect) Enterococcus sp PCR Not Detected Not Detected (Not Detect) E. coli (PCR) Not Detected Not Detected (Not Detect) H. influenzae (PCR) Not Detected Not Detected (Not Detect) Klebsiella oxytoca PCR Not Detected Not Detected (Not Detect) Klebsiella pneumoniae Not Detected Not Detected (Not Detect) List. monocytogenes PCR Not Detected Not Detected (Not Detect) N. meningitidis (PCR) Not Detected Not Detected (Not Detect) Proteus species (PCR) Not Detected Not Detected (Not Detect) Serratia marcescens PCR Not Detected Not Detected (Not Detect) Staphylococcus sp PCR DETECTED A DETECTED A (Not Detect) Staph aureus (PCR) DETECTED A DETECTED A (Not Detect) mecA-Methicil Res Gene DETECTED A DETECTED A (Not Detect) Streptococcus sp PCR Not Detected Not Detected (Not Detect) Group A Strep DNA Not Detected Not Detected (Not Detect) Group B Strep (PCR) Not Detected Not Detected (Not Detect) Strep pneumoniae (PCR) Not Detected Not Detected (Not Detect) P. aeruginosa (PCR) Not Detected Not Detected (Not Detect) Steve/B-Vanco Res Genes N/A N/A (Not Detect) KPC (blaKPC) Detect PCR N/A N/A (Not Detect) 11/24/16 11/22/16 11/22/16 Range/Units 05:48 23:39 04:12 Urine Color (Yellow) Urine Clarity (Clear) Urine pH (5.0-8.0) pH Units Ur Specific [place] (1.010-1.025) Urine Protein (Neg-Trace) mg/dL Urine Glucose (UA) (Normal) mg/dL Urine Ketones (Negative) mg/dL Urine Blood (Negative) Urine Nitrite (Negative) Urine Bilirubin (Negative) Urine Urobilinogen (Normal) mg/dL Ur Leukocyte Esterase (Negative) Urine Microscopic RBC (0-3) per hpf Urine Microscopic WBC (0-3) per hpf Ur Squamous Epith Cells (None-Few) per lpf Urine Bacteria (None-Few) per hpf Hyaline Casts (None-Few) per lpf Urine Yeast (None Seen) per hpf Ur Culture Indicated? (NO) Urine Creatinine 208 mg/dL Urine Sodium 20.0 mEq/L Urine Urea Nitrogen 377 mg/dL A. baumannii (PCR) Not Detected Not Detected (Not Detect) Carol albicans (PCR) Not Detected Not Detected (Not Detect) C. glabrata (PCR) Not Detected Not Detected (Not Detect) C. krusei (PCR) Not Detected Not Detected (Not Detect) C. parapsilosis (PCR) Not Detected Not Detected (Not Detect) C. tropicalis (PCR) Not Detected Not Detected (Not Detect) Enterobacteriac sp PCR Not Detected Not Detected (Not Detect) E. cloacae complex PCR Not Detected Not Detected (Not Detect) Enterococcus sp PCR Not Detected Not Detected (Not Detect) E. coli (PCR) Not Detected Not Detected (Not Detect) H. influenzae (PCR) Not Detected Not Detected (Not Detect) Klebsiella oxytoca PCR Not Detected Not Detected (Not Detect) Klebsiella pneumoniae Not Detected Not Detected (Not Detect) List. monocytogenes PCR Not Detected Not Detected (Not Detect) N. meningitidis (PCR) Not Detected Not Detected (Not Detect) Proteus species (PCR) Not Detected Not Detected (Not Detect) Serratia marcescens PCR Not Detected Not Detected (Not Detect) Staphylococcus sp PCR DETECTED A DETECTED A (Not Detect) Staph aureus (PCR) DETECTED A DETECTED A (Not Detect) mecA-Methicil Res Gene DETECTED A DETECTED A (Not Detect) Streptococcus sp PCR Not Detected Not Detected (Not Detect) Group A Strep DNA Not Detected Not Detected (Not Detect) Group B Strep (PCR) Not Detected Not Detected (Not Detect) Strep pneumoniae (PCR) Not Detected Not Detected (Not Detect) P. aeruginosa (PCR) Not Detected Not Detected (Not Detect) Steve/B-Vanco Res Genes Not Detected N/A (Not Detect) KPC (blaKPC) Detect PCR Not Detected N/A (Not Detect) - Impressions Impressions Face CT 11/30/16 08:37 IMPRESSION: 3.7 x 4.5 x 5.7 cm irregular soft tissue mass in the deep right neck superficial to the right carotid arteries and deep to the right sternocleidomastoid muscle. There is lateral displacement or involvement of the deep lobe of the right parotid gland. Findings are likely related to neoplastic process, such as conglomerate of metastatic lymph nodes versus primary neoplasm. Recommend further evaluation with CT soft tissue neck with IV contrast or MRA neck with contrast. Asymmetric prominence of the right palatine tonsil, may be related to neoplastic process or reactive. Recommend correlation with direct visualization. Extensive dental disease particularly at the right maxillary incisor. No definite evidence of soft tissue abscess adjacent to the maxilla or mandible. The results were sent to radiology results communication. D/ / Leonardo Lopez MD / Leonardo Lopez MD Interpreting Provider: Leonardo Lopez MD Exam - Constitutional Vitals: Temp Pulse Resp BP Pulse Ox 97.8 F 85 18 131/66 94 11/30/16 10:34 11/30/16 10:34 11/30/16 10:34 11/30/16 10:34 11/30/16 10:34 General appearance: cooperative, morbidly obese, no acute distress - Head Head exam: Present: atraumatic, normal inspection, normocephalic - Eye Eye exam: Present: EOMI, normal appearance, PERRL Pupils: Present: normal accommodation Additional comments: No subconjunctival hemorrhage noted. - ENT ENT exam: Present: mucous membranes moist Additional comments: Very poor dentition noted with several missing and broken teeth. No palpable abscess or fluctuance noted on exam. No tenderness noted with palpation of the right mandible. - Neck Neck exam: Present: normal inspection - Respiratory Respiratory exam: Present: CTAB. Absent: rales, respiratory distress, rhonchi, wheezes - Cardiovascular Cardiovascular exam: Present: RRR, +S1, +S2 - GI/Abdominal GI/Abdominal exam: Present: distended (obese), normal bowel sounds, soft. Absent: tenderness Additional comments: Ecchymosis noted to the left lower abdomen secondary to previous fall. Elizalde catheter noted to be draining cloudy, dark yellow urine. - Extremities Exam Extremities exam: Present: joint swelling (Left knee), pedal edema (Trace BLE), tenderness (Left knee) Additional comments: Post-op dressing noted to the left knee C/D/I. +PMS to the distal extremities x 4. No endocarditis stigmata noted. - Back Exam Back exam: Present: normal inspection. Absent: paraspinal tenderness, vertebral tenderness - Neurological Exam Neurological exam: Present: alert, oriented X3, no focal deficits - Psychiatric Psychiatric exam: Present: normal affect, normal mood - Skin Skin exam: Present: dry, intact, normal color, warm - VTE Documentation of Mechanical Device: Intermittent pneumatic compression device Consult Discharge Plan - Plan Referrals: Mercedez Harvey PAC [Physician Counsel] - 12/05/16 10:00 am Bladimir Aguirre MD [Partnered Physician] - 01/02/17 3:55 pm Louise Hays MD [Partnered Physician] - 12/10/16 4:00 pm - Attending Attestation I examined this patient and my medical decision-making was reviewed with the FURNACE BUILDER/PA/Advanced Practice Nurse/Resident Physician. I agree with the documented findings, disposition and treatment plan as described except to the extent set forth below.
--- NOTE | 2016-11-30 12:01 | Orthopedics Progress Note ---
Date of Encounter: 12/05/16 Time of Encounter: 11:59 - Assessment and Plan (1) Septic arthritis of knee, left Status: Acute POD#1 - Left Knee Open I&D; POD#7 Left knee I&D - sutures were removed intraoperatively Dressing intact; No knee ROM to allow for incisional healing. WBAT. Encourage ICE and elevation. f/up in office in 1 week, awaiting repeat cultures from OR. No obvious purulence intra-operatively, significant arthritis and synovitis noted. Patient is being transferred to [facility] for neck mass and further work up. Qualifiers: Septic arthritis organism: staphylococcal Qualified Code(s): M00.062 - Staphylococcal arthritis, left knee (2) Bacteremia due to Gram-positive bacteria Status: Acute Subjective Principal diagnosis: Left Knee - Septic Arthritis Interval history: POD#1 Patient is doing well. Incision clean, dry and intact and Dressing c/d/i. [place] intact. ~I outlined post-operative restrictions and discussed the operative findings with the patient Leukocytosis stable, Blood culture #1/2 - 11/26 - Negative for bacteria. LLE: Swelling noted; no erythema or bleeding. Tenderness noted, no calf tenderness. ROM limited. NV intact Continue to ICE and elevate. Objective Vital signs: Vital Signs Temp Pulse Resp BP Pulse Ox 11/30/16 10:34 97.8 F 85 18 131/66 94 11/30/16 08:02 98.1 F 79 16 129/62 95 11/30/16 03:26 97.8 F 79 18 117/58 94 11/29/16 22:43 98.0 F 81 16 121/59 95 11/29/16 20:27 98.1 F 90 14 148/65 93 11/29/16 16:26 97.3 F L 76 16 118/73 98 11/29/16 15:26 97.0 F L 82 18 116/60 98 11/29/16 15:16 68 20 95/49 99 11/29/16 15:06 59 20 118/59 99 11/29/16 14:56 97.2 F L 55 16 113/55 97 11/29/16 14:46 65 16 95/48 98 11/29/16 14:36 77 16 115/60 98 11/29/16 14:26 97.0 F L 77 16 109/53 100 Intake and Output 11/29/16 11/30/16 11/30/16 23:59 07:59 15:59 Intake Total 0 / 0 120 / 120 Output Total 175 / 175 150 / 150 350 / 350 Balance -175 / -175 -150 / -150 -230 / -230 Intake: Oral 0 / 0 120 / 120 Output: Urine 0 / 0 350 / 350 Catheter 175 / 175 150 / 150 Other: Meal Breakfast Percent of Meal Consumed 80% # Bowel Movements 1 Weight 152.6 kg Blood Glucose* 182 162 Patient Weight 11/30/16 23:59 Weight 152.6 kg Incision: clean and dry - Labs CBC & BMP: 11/30/16 09:03 11/30/16 09:03 Labs: Abnormal lab results WBC 12.8 K/mcL (4.3-11.1) H 11/30/16 09:03 Hgb 12.1 g/dL (12.9-16.9) L 11/30/16 09:03 Hct 36.8 % (37.5-50.1) L 11/30/16 09:03 MCH 27.6 pg (28.0-33.3) L 11/30/16 09:03 RDW 14.7 % (11.5-14.5) H 11/30/16 09:03 Plt Count 424 K/mcL (140-400) H 11/30/16 09:03 MPV 8.1 fL (9.4-12.4) L 11/30/16 09:03 Neutrophils # 10.9 K/mcL (1.6-8.9) H 11/30/16 09:03 Hypersegmented Neuts Present (Not Present) A 11/22/16 04:12 Toxic Granulation Present (Not Present) A 11/22/16 04:12 Immature Plt Fraction 0.7 % (1.1-6.1) L 11/30/16 09:03 Polychromasia 1+ (Not Present) A 11/24/16 05:48 Anisocytosis 1+ (Not Present) A 11/24/16 05:48 Microcytosis Present (Not Present) A 11/24/16 05:48 ESR 103 mm/hr (0-10) H 11/24/16 05:48 PT 12.3 Seconds (9.4-12.1) H 11/23/16 07:38 APTT 23.2 Seconds (26.0-36.0) L 11/23/16 07:38 ABG pH 7.26 pH Units (7.32-7.45) L 11/22/16 18:50 ABG pO2 64 mmHg (85-104) L 11/22/16 18:50 ABG HCO3 19.7 mEQ/L (21-27) L 11/22/16 18:50 ABG O2 Saturation 88 % (95-98) L 11/22/16 18:50 ABG Base Excess -7.2 mEq/L (-2.0 to 3.0) L 11/22/16 18:50 VBG HCO3 27.2 mEq/L (21-27) H 11/21/16 18:03 Sodium 134 mEq/L (136-145) L 11/30/16 09:03 BUN 71 mg/dL (8-26) H 11/30/16 09:03 Creatinine 3.07 mg/dL (0.72-1.25) H 11/30/16 09:03 Est GFR ( Amer) 25 (> 60) L 11/30/16 09:03 Est GFR (Non-Af Amer) 20 (> 60) L 11/30/16 09:03 Glucose 172 mg/dL (70-99) H 11/30/16 09:03 POC Glucose 182 (58-89) H 11/29/16 20:32 Hemoglobin A1c 12.2 % (-5.6) H 11/22/16 04:12 Calculated Osmolality 303 (280-300) H 11/30/16 09:03 Calcium 8.3 mg/dL (8.6-10.8) L 11/30/16 09:03 Direct Bilirubin 0.6 mg/dL (0.0-0.5) H 11/24/16 05:48 Creatine Kinase 685 Units/L (30-200) H 11/21/16 16:52 C-Reactive Protein 397 mg/L (Less than 5) H 11/24/16 05:48 Albumin 1.4 g/dL (3.5-5.0) L 11/30/16 09:03 Globulin 5.0 g/dL (2.4-3.5) H 11/30/16 09:03 Albumin/Globulin Ratio 0.3 (1.1-2.2) L 11/30/16 09:03 Beta-Hydroxybutyric Acd > 2.00 mmol/L (0.02-0.27) H 11/21/16 16:52 Urine Clarity Turbid (Clear) A 11/29/16 10:05 Urine Blood Large (Negative) H 11/29/16 10:05 Urine Bilirubin Small (Negative) H 11/29/16 10:05 Ur Leukocyte Esterase Moderate (Negative) H 11/29/16 10:05 Urine Microscopic RBC 5-15 per hpf (0-3) H 11/29/16 10:05 Urine Microscopic WBC TNTC per hpf (0-3) H 11/29/16 10:05 Ur Squamous Epith Cells Many per lpf (None-Few) H 11/29/16 10:05 Urine Yeast Many per hpf (None Seen) H 11/29/16 10:05 Ur Culture Indicated? YES (NO) A 11/29/16 10:05 Vancomycin Trough 27.8 mcg/mL (10-20) H* 11/29/16 11:49 Staphylococcus sp PCR DETECTED (Not Detect) A 11/27/16 09:04 Staph aureus (PCR) DETECTED (Not Detect) A 11/27/16 09:04 mecA-Methicil Res Gene DETECTED (Not Detect) A 11/27/16 09:04 - VTE Documentation of Mechanical Device: Intermittent pneumatic compression device Consult Discharge Plan - Plan Referrals: Mercedez Harvey, ROWDY [Physician Tile Shader] - 12/05/16 10:00 am Bladimir Aguirre MD [Partnered Physician] - 01/02/17 3:55 pm Louise Hays MD [Partnered Physician] - 12/10/16 4:00 pm
--- NOTE | 2016-11-30 13:48 | Discharge Summary ---
Date of Encounter: 11/30/16 Time of Encounter: 13:46 - Discharge Diagnosis (1) Acute on chronic kidney failure Priority: Secondary Status: Acute (2) Hyperosmolar non-ketotic state in patient with type 2 diabetes mellitus Priority: Secondary Status: Acute (3) Bacteremia due to Gram-positive bacteria Priority: Secondary Status: Acute (4) Septic arthritis of knee, left Priority: Primary Status: Acute Qualifiers: Septic arthritis organism: staphylococcal Qualified Code(s): M00.062 - Staphylococcal arthritis, left knee (5) Diabetes mellitus type 2 in obese Priority: Secondary Status: Acute (6) Hypertension Priority: Secondary Status: Chronic Qualifiers: Hypertension type: essential hypertension Qualified Code(s): I10 - Essential (primary) hypertension (7) Mass of right side of neck Priority: Secondary Status: Acute (8) SIRS (systemic inflammatory response syndrome) Priority: Secondary Status: Acute - Discharge Medications Home Medications: Aspirin Enteric Coated [Aspirin EC] 81 mg PO DAILY 11/21/16 [History] Atorvastatin Calcium [Lipitor] 20 mg PO HS 11/21/16 [History] Cholecalciferol (D-3) [Vitamin D] 2,000 unit PO DAILY 11/21/16 [History] Gabapentin [Neurontin] 600 mg PO TID 11/21/16 [History] Glimepiride [Amaryl] 4 mg PO BID 11/21/16 [History] Insulin DETEMIR [Levemir] 20 unit SQ HS 11/21/16 [History] Multivitamin [Multi-Day Vitamins] 1 each PO DAILY 11/21/16 [History] Nystatin POWDER [Nystop] 1 appl TP TID 11/21/16 [History] Omeprazole [PriLOSEC] 20 mg PO DAILY 11/21/16 [History] Oxycodone HCl [Roxicodone 30 MG Immed Release] 30 mg PO Q6HR PRN 11/21/16 [ History] Potassium Chloride [K-Tab ER] 20 meq PO DAILY 11/21/16 [History] Sertraline [Zoloft] 100 mg PO DAILY 11/21/16 [History] amLODIPine [Norvasc] 5 mg PO DAILY 11/21/16 [History] hydroCHLOROthiazide [Hydrochlorothiazide] 12.5 mg PO DAILY 11/21/16 [History] Heparin 5,000 unit SQ Q12HCO vial 11/30/16 [Rx] Insulin LISPRO [HumaLOG] 0 units SQ TIDAC vial 11/30/16 [Rx] Insulin LISPRO [HumaLOG] 6 units SQ TIDWM vial 11/30/16 [Rx] Miconazole w/zinc oxide&karaya [Antifungal Extra Thick] 1 appl TP TID tube [Rx] Allergies/Adverse Reactions: Allergies morphine Allergy (Verified 11/21/16 16:26) Hallucinating Procedures/tests Complete & Pending: Procedures Performed prior 72 hours Category Date Time Status CT maxillofacial [CT facial bones wo con] [CT] Stat Cat Scan 11/30/16 08:37 Completed Date of admission: 11/22/16 02:02 Primary care physician: PCP NO Consults: 11/22/16 10:10 Consult to Occupational Therapy [CONS] Routine Comment: Evaluate, develop and implement POC Reason for Consult: discharge planning Consult to Physical Therapy [CONS] Routine Comment: Evaluate, develop and implement POC Reason for Consult: discharge planning 11/22/16 10:20 Consult to [employer] [CONS] Routine Comment: Reason for Consult: HHS, A1C 12.2 11/23/16 06:50 Consult to Orthopedic Surgery [CONS] Stat Consulting Provider: [facility] Reason for Consult: Septic arthritis Left knee Call Completed: Yes 11/23/16 08:48 Consult to Infectious Diseases [CONS] Routine Consulting Provider: Infectious Disease [facility] Reason for Consult: MRSA bacteremia, septic arthritis, UTI, Severe sepsis Call Completed: No 11/24/16 09:47 Consult to Occupational Therapy [CONS] Routine Comment: Evaluate, develop and implement POC Reason for Consult: post knee surgery Consult to Orthopedic Navigator [CONS] [CONS] Routine Consult to Physical Therapy [CONS] Routine Comment: Evaluate, develop and impliment POC Reason for Consult: post knee surgery WBAT Consult to Leather Fitter [CONS] Routine Reason for SW Consult: post op joint replacement RT Post Op Consult [CONS] Routine 11/29/16 08:51 Consult to Nephrology [CONS] Routine Consulting Provider: Kidney [facility]/CHARIS/ILENE/MYLES Reason for Consult: Acute renal failure Time Notified: 08:52 Call Completed: No Discharging clinician: Christina Kessler Anticipated date of discharge: 11/30/16 - Patient Status Disposition: Transfer Other Condition: Fair Overall status at discharge: patient is not back to baseline - Discharge Instructions Follow Up With: Mercedez Harvey PAC [Physician [employer]] - 12/05/16 10:00 am Bladimir Aguirre MD [Partnered Physician] - 01/02/17 3:55 pm Louise Hays MD [Partnered Physician] - 12/10/16 4:00 pm - Diet and Activity Activity: as per physical therapy Diet: diabetic diet Interval History: atjose Arceo is a 70-year-old male was transferred our floor. Patient came in a week ago to 2 A floor after he had a fall and hurt his left knee. He was diagnosed with the osteomyelitis of left knee. Both blood culture and a knee aspirate showed MRSA. He is being treated with IV vancomycin. Dr. Saldivar orthopedic surgeon was consulted who did laparoscopic surgery and cleaning of the left knee.. Infectious disease is involved. Patient transthoracic echocardiogram was negative for any vegetation and showed normal LV systolic function however no BERNARDO was done. As infection continued patient creatinine which is usually around 1.8 as he is C daily jumped to 3. Suspect it could be sepsis. His vancomycin trough level was 25 and it is on hold. After 1 week antibiotic treatment with vancomycin patient blood cultures still returned positive for MRSA. Patient had a right swelling and was concerned about toothache. A CT facial was done which showed on the right Side of soft tissue swelling 3.7 times 4.7.5.7 in diameters and question necrosis versus malignancy. Since we do not have any ENT surgeon available to her vision is planned to be transferred to [facility]. We discuss the case with patient was agreeable to be transferred to [facility]. Hospital course: Mr. Arceo is a 70 year old male - Time Spent with Patient Total time spent providing and/or coordinating discharge services: Greater than 30 minutes - Constitutional Vitals: Temp Pulse Resp BP Pulse Ox 97.8 F 85 18 131/66 94 11/30/16 10:34 11/30/16 10:34 11/30/16 10:34 11/30/16 10:34 11/30/16 10:34 General appearance: Present: disheveled, A&O X 3, morbidly obese, pleasant, no acute distress, answers questions appropriately - Head Head exam: Present: atraumatic, normocephalic - Eye Eye exam: Present: PERRL, conjuntiva pink, sclera anicteric Pupils: Present: PERRL - Neck Neck exam general surgery: Present: supple, trachea midline. Absent: lymphadenopathy - Respiratory Respiratory exam: Present: CTAB. Absent: accessory muscle use, rales, rhonchi, wheezes - Cardiovascular Cardiovascular exam: Present: RRR, +S1, +S2. Absent: diastolic murmur, gallop, rubs, systolic murmur - GI/Abdominal GI/Abdominal exam: Present: normal bowel sounds, soft, no peritoneal signs. Absent: distended, tenderness - Extremities Exam Extremities exam: Present: warm, radial pulses palpable and symetrical. Absent : calf tenderness, cyanotic, pedal edema Additional comments: Knee examination as per orthopedic surgery - Neurological Exam Neurological exam: Present: CN II-XII intact, oriented X3, no focal deficits. Absent: pronater drift, facial droop, speech deficit - Skin Skin exam: Present: dry, intact - VTE Documentation of Mechanical Device: Intermittent pneumatic compression device
[2016-11-30 15:35] VITALS: BP 138/70
--- NOTE | 2016-11-30 16:28 | Nephrology Progress Note ---
Date of Encounter: 11/30/16 Time of Encounter: 16:25 - Assessment and Plan (1) Acute on chronic kidney failure Current Visit: Yes Status: Acute NIKKO on CKD associated with elevated vancomycin level. Patient is nonoliguric, but creatinine continues to climb. Vancomycin has been discontinued. will monitor for improvement. (2) Diabetes mellitus type 2 in obese Current Visit: Yes Status: Acute Per primary team. (3) Morbid obesity with BMI of 45.0-49.9, adult Current Visit: Yes Status: Chronic outpatient management. (4) Bacteremia due to Gram-positive bacteria Current Visit: Yes Status: Acute ID following. MRSA from septic left knee. (5) SIRS (systemic inflammatory response syndrome) Current Visit: Yes Status: Acute ID following. Subjective Principal diagnosis: Left Knee - Septic Arthritis Interval history: Patient without complaint this am. He denies chest pain or dyspnea. He anticipates being transferred later today. Objective - Vital Signs Vital signs: Vital Signs Temp Pulse Resp BP Pulse Ox 11/30/16 14:55 98.7 F 78 20 138/70 94 11/30/16 10:34 97.8 F 85 18 131/66 94 11/30/16 08:02 98.1 F 79 16 129/62 95 11/30/16 03:26 97.8 F 79 18 117/58 94 11/29/16 22:43 98.0 F 81 16 121/59 95 11/29/16 20:27 98.1 F 90 14 148/65 93 Intake and Output 11/30/16 11/30/16 11/30/16 07:59 15:59 23:59 Intake Total 360 / 360 Output Total 150 / 150 500 / 500 Balance -150 / -150 -140 / -140 Intake: Oral 360 / 360 Output: Urine 350 / 350 Catheter 150 / 150 150 / 150 Other: Meal Lunch Percent of Meal Consumed 25% # Bowel Movements 1 Weight 152.6 kg Blood Glucose* 162 172 Patient Weight 11/30/16 23:59 Weight 152.6 kg - General Appearance General appearance: Present: well-developed, well-nourished EENT: Present: ATNC Neck: Present: supple Respiratory: Present: clear Cardiology: Present: edema, regular rate Gastrointestinal: Present: no tenderness, obese Integumentary: Present: warm and dry Neurologic: Present: alert and oriented x3 Musculoskeletal: Present: no cyanosis Psychiatric: Present: mood/affect appropriate - Lab 11/30/16 09:03 11/30/16 09:03 Most recent lab results ABG pH 7.26 pH Units (7.32-7.45) L 11/22/16 18:50 ABG pCO2 44 mmHg (35-45) 11/22/16 18:50 ABG pO2 64 mmHg (85-104) L 11/22/16 18:50 ABG HCO3 19.7 mEQ/L (21-27) L 11/22/16 18:50 ABG O2 Saturation 88 % (95-98) L 11/22/16 18:50 Calcium 8.3 mg/dL (8.6-10.8) L 11/30/16 09:03 Magnesium 1.7 mg/dL (1.6-2.6) 11/23/16 07:38 Urine Creatinine 208 mg/dL 11/22/16 23:39 Urine Sodium 20.0 mEq/L 11/22/16 23:39 - VTE Documentation of Mechanical Device: Intermittent pneumatic compression device Consult Discharge Plan - Plan Referrals: Mercedez Harvey, ROWDY [Physician [employer]] - 12/05/16 10:00 am Bladimir Aguirre MD [Partnered Physician] - 01/02/17 3:55 pm Louise Hays MD [Partnered Physician] - 12/10/16 4:00 pm
[2016-11-30] MEDS ORDERED: Aminoglycoside Consult 1 EACH MC ONE (18:31)
== END 2016-11-30 18:32 | disposition critical access hospital (66) | DRG 485 ==
LOC: 3BNU 15:38 → EMEROO 15:38 → 3BNU 20:55 → ICNU 11-22 22:47 → 2NNU 11-24 16:53 → 3ANU 11-27 07:25
PROVIDERS: ADMIT Nurse Practitioner Family; ATTEND Nurse Practitioner Family

== ENCOUNTER 2017-01-07 09:37 | Inpatient (IN) ==
[2017-01-07] MEDS ORDERED: Naloxone 0.4 MG/ML INJ IVP ONE (09:41)
[2017-01-07] MEDS ORDERED: 0.9 % Sodium Chloride 1,000 ML IVC ONE (09:41)
[2017-01-07] MEDS ORDERED: 0.9 % Sodium Chloride 1,000 ML ONE (09:42)
--- NOTE | 2017-01-07 09:56 | Emergency Department Note ---
Disposition Clinical Impression: Delirium due to general medical condition, Septic shock Disposition: Admitted As Inpatient Condition: Serious Time of Disposition: 17:17 General Adult HPI - General Chief complaint: ED General Medical Stated complaint: Unresponsive Time Seen by Provider: 01/07/17 09:41 Source: patient, EMS Limitations: no limitations Nursing Notes Reviewed: Yes Vital Signs Reviewed: Yes - History of Present Illness HPI Narrative: Patient brought in by EMS. 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 He was found the senior living unresponsive this morning. Last known well was last night. They state the senior living states that he was generally nonverbal however after family gets here they state that he was acting appropriately last night and talking to his friends and family. Is recently discharged from [facility] for a similar occurrence. However he was diagnosed with MRSA at that time. He has a recent history of head and neck cancer. Possible metastases to the lungs. Pain Scale: 0 - Related Data Home Medications Medication Instructions Recorded Confirmed Aspirin Enteric Coated [Aspirin EC] 81 mg PO DAILY 11/21/16 01/07/17 Atorvastatin Calcium [Lipitor] 20 mg PO HS 11/21/16 01/07/17 Cholecalciferol (D-3) [Vitamin D] 2,000 unit PO DAILY 11/21/16 01/07/17 Gabapentin [Neurontin] 600 mg PO TID 11/21/16 01/07/17 Glimepiride [Amaryl] 4 mg PO BID 11/21/16 01/07/17 Insulin DETEMIR [Levemir] 20 unit SQ HS 11/21/16 01/07/17 Multivitamin [Multi-Day Vitamins] 1 tab PO DAILY 11/21/16 01/07/17 Nystatin POWDER [Nystop] 1 appl TP TID 11/21/16 01/07/17 Omeprazole [PriLOSEC] 20 mg PO DAILY 11/21/16 01/07/17 Oxycodone HCl [Roxicodone 30 MG 30 mg PO Q6HR PRN 11/21/16 01/07/17 Immed Release] Potassium Chloride [K-Tab ER] 20 meq PO DAILY 11/21/16 01/07/17 Sertraline [Zoloft] 100 mg PO DAILY 11/21/16 01/07/17 amLODIPine [Norvasc] 5 mg PO DAILY 11/21/16 01/07/17 hydroCHLOROthiazide 12.5 mg PO DAILY 11/21/16 01/07/17 [Hydrochlorothiazide] Previous Rx's Medication Instructions Recorded Insulin LISPRO [HumaLOG] 0 units SQ TIDAC vial 11/30/16 Insulin LISPRO [HumaLOG] 6 units SQ TIDWM vial 11/30/16 Miconazole w/zinc oxide&karaya 1 appl TP TID tube 11/30/16 [Antifungal Extra Thick] Allergies Allergy/AdvReac Type Severity Reaction Status Date / Time morphine Allergy Hallucinati Verified 11/21/16 16:26 ng Limitations: ROS unobtainable due to patients medical condition Past Medical History - Past Medical History Medical history: Reports: diabetes, hyperlipidemia, hypertension, renal disease Surgical history: Reports: other (Ping's gangrene I & D, Right foot toe amputation) Psychiatric history: Reports: no psych history - Social History Smoking Status: Never smoker Smokeless Tobacco Status: No Alcohol use: Reports: none Drug use: Reports: none Physical Exam - General Limitations: no limitations, altered mental status General appearance: alert, obtunded - Head Head exam: atraumatic, normocephalic, normal inspection - Eye Eye exam: Present: PERRL, EOMI. Absent: scleral icterus - ENT ENT exam: normal exam, normal oropharynx, mucous membranes moist - Neck Neck exam: Present: normal inspection, full ROM, trachea midline, tenderness - Chest Chest inspection: Present: normal inspection, symmetric chest wall rise. Absent : tenderness - Respiratory Respiratory exam: Present: other (Decreased lung sounds bilaterally.) - Cardiovascular Cardiovascular exam: Present: regular rate, normal rhythm, normal heart sounds - Abdominal Exam Abdominal exam: Present: soft, normal bowel sounds, other (Patient obese. This limits patient's abdominal exam.). Absent: distention, organomegaly - Extremities Exam Extremities exam: Present: other (Well appearing healing scar to left anterior knee. Decubitus ulcer to buttocks.) - Psychiatric Psychiatric exam: Present: normal affect, normal mood - Skin Skin exam: Present: warm, dry, intact, normal color. Absent: rash, cyanosis, diaphoresis Course Course Narrative: Patient brought in by EMS. They received the patient from a BLS crew. BLS crew advised them that the nursing staff at [facility] stated that the patient was altered this morning. They state that his baseline was altered last night however there is a different level of altered mentation this morning. Obese male. He is on a nonrebreather at this time at 15 L. He has a PICC line to his right upper forearm. He is maintaining his own airway however his respirations around 12. We will place patient on BiPAP at this time and get a ABG. - Reevaluation(s) Reevaluation #1: Patient's sister at bedside. She is advising that she was at the senior living last night talking to him. She states she was acting appropriately. She advises that about 5 weeks ago the patient was admitted to the hospital here for a similar occurrence. However he ended up having knee surgery. Left-sided knee surgery. He ended up having MRSA. He was subsequently placed in the ICU. He was then transferred to [facility] at some point in time. He was discharged from [facility] on Saturday and sent to the senior living. She states that he does this frequently where he will not respond. She states she frequently goes to sleep while you are talking to her. She states the patient has a recent diagnosis of head and neck cancer. She is also unaware if he has metastases to the lung or not. He states he generally wears nasal cannula oxygen at the senior living. She denies any history that she knows of of COPD or any kind of heart problems. Workup is pending at this time. Time: 10:16 Reevaluation #2: Patient's chest x-ray shows pleural effusions. Several opacities throughout the bilateral lung saravia. We will start patient on empiric antibiotics. We will also get patient on Levofed. Time: 11:00 Reevaluation #3: Patient's family advised the patient would not wish for any of these procedures to be done. They are requesting we take him off BiPAP stop the vasopressors. Palliative has been down to talk to the family. Patient's family has agreed to make the patient DNR CC. We will take the patient off BiPAP and stop the Levaquin. The patient's sister's bedside and are on the phone with another family member. We will admit the patient for palliative care. - Consultations Consultation #1: Dr Dorman accepted Pt Time: 11:23 Vital Signs Temperature 95.8 F L 01/07/17 09:40 Pulse Rate 89 01/07/17 09:40 Respiratory Rate 12 01/07/17 09:40 Blood Pressure 76/33 01/07/17 09:40 O2 Sat by Pulse Oximetry 100 01/07/17 09:40 Temperature 98.4 F 01/07/17 17:05 Pulse Rate 36 01/07/17 17:05 Respiratory Rate 13 01/07/17 17:05 Blood Pressure 39/27 01/07/17 17:05 O2 Sat by Pulse Oximetry 100 01/07/17 13:02 Oxygen Delivery Oxygen Delivery Nasal Cannula Medical Decision Making - Medical Records Medical records reviewed: Yes I reviewed the patient's medical records. - Lab Data Lab results reviewed: Yes I reviewed the patient's lab results. Result diagrams: 01/07/17 09:45 01/07/17 09:45 Lab Results 01/07/17 01/07/17 01/07/17 Range/Units 09:45 09:45 09:45 WBC 9.4 (4.3-11.1) K/mcL RBC 2.79 L (4.19-5.50) M/mcL Hgb 7.7 L (12.9-16.9) g/dL Hct 27.4 L (37.5-50.1) % MCV 98.2 D (83.0-100.0) fL MCH 27.6 L (28.0-33.3) pg MCHC 28.1 L (31.6-35.5) g/dL RDW 17.2 H (11.5-14.5) % Plt Count 165 (140-400) K/mcL MPV 8.5 L (9.4-12.4) fL Immature Gran % 1.0 (0-4) % Seg Neutrophils % 80.2 % Lymphocytes % 11.3 % Monocytes % 6.7 % Eosinophils % 0.6 % Basophils % 0.2 % Neutrophils # 7.5 (1.6-8.9) K/mcL Lymphocytes # 1.1 (0.6-4.6) K/mcL Monocytes # 0.6 (0.0-1.3) K/mcL Eosinophils # 0.1 (0.0-0.6) K/mcL Basophils # 0.0 (0.0-0.2) K/mcL Platelet Estimate Normal (Normal) Hypochromasia Present A (Not Present) Basophilic Stippling 1+ A (Not Present) Anisocytosis 1+ A (Not Present) ABG pH (7.32-7.45) pH Units ABG pCO2 (35-45) mmHg ABG pO2 (85-104) mmHg ABG HCO3 (21-27) mEQ/L ABG Total CO2 (20-26) mEq/L ABG O2 Saturation (95-98) % ABG Base Excess (-2.0 to 3.0) mEq/L Blood Gas Modality Inspired O2 % Sodium 140 (136-145) mEq/L Potassium 4.4 (3.5-4.5) mEq/L Chloride 103 (98-109) mEq/L Carbon Dioxide 33 H (19-29) mEq/L BUN 45 H (8-26) mg/dL Creatinine 3.40 H (0.72-1.25) mg/dL Est GFR ( Amer) 22 L (> 60) Est GFR (Non-Af Amer) 18 L (> 60) BUN/Creatinine Ratio 13 (6-26) Glucose 218 H (70-99) mg/dL Calculated Osmolality 308 H (280-300) Lactic Acid (0.5-2.2) mmol/L Calcium 8.4 L (8.6-10.8) mg/dL Total Bilirubin 0.4 (0.2-1.2) mg/dL Direct Bilirubin 0.2 (0.0-0.5) mg/dL Indirect Bilirubin 0.2 (0.0-1.2) mg/dL AST 16 (5-34) Units/L ALT 12 (0-55) Units/L Alkaline Phosphatase 107 (38-126) Units/L Creatine Kinase 16 L (30-200) Units/L Troponin I 0.04 H* (0-0.03) ng/mL Serum Total Protein 6.4 (6.0-8.3) g/dL Albumin 1.6 L (3.5-5.0) g/dL Globulin 4.8 H (2.4-3.5) g/dL Albumin/Globulin Ratio 0.3 L (1.1-2.2) Urine Color (Yellow) Urine Clarity (Clear) Urine pH (5.0-8.0) pH Units Ur Specific [place] (1.010-1.025) Urine Protein (Neg-Trace) mg/dL Urine Glucose (UA) (Normal) mg/dL Urine Ketones (Negative) mg/dL Urine Blood (Negative) Urine Nitrite (Negative) Urine Bilirubin (Negative) Urine Urobilinogen (Normal) mg/dL Ur Leukocyte Esterase (Negative) Urine Microscopic RBC (0-3) per hpf Urine Microscopic WBC (0-3) per hpf Ur Squamous Epith Cells (None-Few) per lpf Urine Bacteria (None-Few) per hpf Hyaline Casts (None-Few) per lpf Urine Yeast (None Seen) per hpf Ur Culture Indicated? (NO) Stool Occult Blood (Negative) Urine Opiates Screen (Sfvutv=546) ng/mL Ur Barbiturates Screen (Kvgzuv=063) ng/mL Ur Phencyclidine Scrn (Cutoff=25) ng/mL Ur Amphetamines Screen (Ktqcfa=0147) ng/mL U Benzodiazepines Scrn (Filfhh=035) ng/mL Urine Cocaine Screen (Cutoff= 300) ng/mL U Marijuana (THC) Screen (Cutoff = 50) ng/mL Ethyl Alcohol < 10 (0-10) mg/dL Blood Type Antibody Screen 01/07/17 01/07/17 01/07/17 Range/Units 09:45 10:10 10:50 WBC (4.3-11.1) K/mcL RBC (4.19-5.50) M/mcL Hgb (12.9-16.9) g/dL Hct (37.5-50.1) % MCV (83.0-100.0) fL MCH (28.0-33.3) pg MCHC (31.6-35.5) g/dL RDW (11.5-14.5) % Plt Count (140-400) K/mcL MPV (9.4-12.4) fL Immature Gran % (0-4) % Seg Neutrophils % % Lymphocytes % % Monocytes % % Eosinophils % % Basophils % % Neutrophils # (1.6-8.9) K/mcL Lymphocytes # (0.6-4.6) K/mcL Monocytes # (0.0-1.3) K/mcL Eosinophils # (0.0-0.6) K/mcL Basophils # (0.0-0.2) K/mcL Platelet Estimate (Normal) Hypochromasia (Not Present) Basophilic Stippling (Not Present) Anisocytosis (Not Present) ABG pH 7.21 L (7.32-7.45) pH Units ABG pCO2 91 H* (35-45) mmHg ABG pO2 63 L (85-104) mmHg ABG HCO3 36.4 H (21-27) mEQ/L ABG Total CO2 39.2 H (20-26) mEq/L ABG O2 Saturation 86 L (95-98) % ABG Base Excess 7.2 H (-2.0 to 3.0) mEq/L Blood Gas Modality BIPAP Inspired O2 60 % Sodium (136-145) mEq/L Potassium (3.5-4.5) mEq/L Chloride (98-109) mEq/L Carbon Dioxide (19-29) mEq/L BUN (8-26) mg/dL Creatinine (0.72-1.25) mg/dL Est GFR ( Amer) (> 60) Est GFR (Non-Af Amer) (> 60) BUN/Creatinine Ratio (6-26) Glucose (70-99) mg/dL Calculated Osmolality (280-300) Lactic Acid 0.9 (0.5-2.2) mmol/L Calcium (8.6-10.8) mg/dL Total Bilirubin (0.2-1.2) mg/dL Direct Bilirubin (0.0-0.5) mg/dL Indirect Bilirubin (0.0-1.2) mg/dL AST (5-34) Units/L ALT (0-55) Units/L Alkaline Phosphatase (38-126) Units/L Creatine Kinase (30-200) Units/L Troponin I (0-0.03) ng/mL Serum Total Protein (6.0-8.3) g/dL Albumin (3.5-5.0) g/dL Globulin (2.4-3.5) g/dL Albumin/Globulin Ratio (1.1-2.2) Urine Color (Yellow) Urine Clarity (Clear) Urine pH (5.0-8.0) pH Units Ur Specific [place] (1.010-1.025) Urine Protein (Neg-Trace) mg/dL Urine Glucose (UA) (Normal) mg/dL Urine Ketones (Negative) mg/dL Urine Blood (Negative) Urine Nitrite (Negative) Urine Bilirubin (Negative) Urine Urobilinogen (Normal) mg/dL Ur Leukocyte Esterase (Negative) Urine Microscopic RBC (0-3) per hpf Urine Microscopic WBC (0-3) per hpf Ur Squamous Epith Cells (None-Few) per lpf Urine Bacteria (None-Few) per hpf Hyaline Casts (None-Few) per lpf Urine Yeast (None Seen) per hpf Ur Culture Indicated? (NO) Stool Occult Blood (Negative) Urine Opiates Screen (Pxkukm=889) ng/mL Ur Barbiturates Screen (Clyrsq=905) ng/mL Ur Phencyclidine Scrn (Cutoff=25) ng/mL Ur Amphetamines Screen (Qekezy=2922) ng/mL U Benzodiazepines Scrn (Xezdoo=740) ng/mL Urine Cocaine Screen (Cutoff= 300) ng/mL U Marijuana (THC) Screen (Cutoff = 50) ng/mL Ethyl Alcohol (0-10) mg/dL Blood Type A POSITIVE Antibody Screen NEGATIVE 01/07/17 01/07/17 01/07/17 Range/Units 11:20 11:30 11:57 WBC (4.3-11.1) K/mcL RBC (4.19-5.50) M/mcL Hgb (12.9-16.9) g/dL Hct (37.5-50.1) % MCV (83.0-100.0) fL MCH (28.0-33.3) pg MCHC (31.6-35.5) g/dL RDW (11.5-14.5) % Plt Count (140-400) K/mcL MPV (9.4-12.4) fL Immature Gran % (0-4) % Seg Neutrophils % % Lymphocytes % % Monocytes % % Eosinophils % % Basophils % % Neutrophils # (1.6-8.9) K/mcL Lymphocytes # (0.6-4.6) K/mcL Monocytes # (0.0-1.3) K/mcL Eosinophils # (0.0-0.6) K/mcL Basophils # (0.0-0.2) K/mcL Platelet Estimate (Normal) Hypochromasia (Not Present) Basophilic Stippling (Not Present) Anisocytosis (Not Present) ABG pH 7.14 L* (7.32-7.45) pH Units ABG pCO2 107 H* (35-45) mmHg ABG pO2 188 H (85-104) mmHg ABG HCO3 36.4 H (21-27) mEQ/L ABG Total CO2 39.7 H (20-26) mEq/L ABG O2 Saturation 99 H (95-98) % ABG Base Excess 6.0 H (-2.0 to 3.0) mEq/L Blood Gas Modality BIPAP Inspired O2 60 % Sodium (136-145) mEq/L Potassium (3.5-4.5) mEq/L Chloride (98-109) mEq/L Carbon Dioxide (19-29) mEq/L BUN (8-26) mg/dL Creatinine (0.72-1.25) mg/dL Est GFR ( Amer) (> 60) Est GFR (Non-Af Amer) (> 60) BUN/Creatinine Ratio (6-26) Glucose (70-99) mg/dL Calculated Osmolality (280-300) Lactic Acid (0.5-2.2) mmol/L Calcium (8.6-10.8) mg/dL Total Bilirubin (0.2-1.2) mg/dL Direct Bilirubin (0.0-0.5) mg/dL Indirect Bilirubin (0.0-1.2) mg/dL AST (5-34) Units/L ALT (0-55) Units/L Alkaline Phosphatase (38-126) Units/L Creatine Kinase (30-200) Units/L Troponin I (0-0.03) ng/mL Serum Total Protein (6.0-8.3) g/dL Albumin (3.5-5.0) g/dL Globulin (2.4-3.5) g/dL Albumin/Globulin Ratio (1.1-2.2) Urine Color Yellow (Yellow) Urine Clarity Cloudy A (Clear) Urine pH 5.5 (5.0-8.0) pH Units Ur Specific [place] 1.015 (1.010-1.025) Urine Protein Trace (Neg-Trace) mg/dL Urine Glucose (UA) 100 H (Normal) mg/dL Urine Ketones Negative (Negative) mg/dL Urine Blood Moderate H (Negative) Urine Nitrite Negative (Negative) Urine Bilirubin Negative (Negative) Urine Urobilinogen Normal (Normal) mg/dL Ur Leukocyte Esterase Trace H (Negative) Urine Microscopic RBC 15-30 H (0-3) per hpf Urine Microscopic WBC 5-15 H (0-3) per hpf Ur Squamous Epith Cells Many H (None-Few) per lpf Urine Bacteria None Seen (None-Few) per hpf Hyaline Casts None Seen (None-Few) per lpf Urine Yeast Many H (None Seen) per hpf Ur Culture Indicated? YES A (NO) Stool Occult Blood Negative (Negative) Urine Opiates Screen (Enmcjs=920) ng/mL Ur Barbiturates Screen (Eemiyp=408) ng/mL Ur Phencyclidine Scrn (Cutoff=25) ng/mL Ur Amphetamines Screen (Ecjbee=0503) ng/mL U Benzodiazepines Scrn (Smbybo=523) ng/mL Urine Cocaine Screen (Cutoff= 300) ng/mL U Marijuana (THC) Screen (Cutoff = 50) ng/mL Ethyl Alcohol (0-10) mg/dL Blood Type Antibody Screen 01/07/17 Range/Units 11:57 WBC (4.3-11.1) K/mcL RBC (4.19-5.50) M/mcL Hgb (12.9-16.9) g/dL Hct (37.5-50.1) % MCV (83.0-100.0) fL MCH (28.0-33.3) pg MCHC (31.6-35.5) g/dL RDW (11.5-14.5) % Plt Count (140-400) K/mcL MPV (9.4-12.4) fL Immature Gran % (0-4) % Seg Neutrophils % % Lymphocytes % % Monocytes % % Eosinophils % % Basophils % % Neutrophils # (1.6-8.9) K/mcL Lymphocytes # (0.6-4.6) K/mcL Monocytes # (0.0-1.3) K/mcL Eosinophils # (0.0-0.6) K/mcL Basophils # (0.0-0.2) K/mcL Platelet Estimate (Normal) Hypochromasia (Not Present) Basophilic Stippling (Not Present) Anisocytosis (Not Present) ABG pH (7.32-7.45) pH Units ABG pCO2 (35-45) mmHg ABG pO2 (85-104) mmHg ABG HCO3 (21-27) mEQ/L ABG Total CO2 (20-26) mEq/L ABG O2 Saturation (95-98) % ABG Base Excess (-2.0 to 3.0) mEq/L Blood Gas Modality Inspired O2 % Sodium (136-145) mEq/L Potassium (3.5-4.5) mEq/L Chloride (98-109) mEq/L Carbon Dioxide (19-29) mEq/L BUN (8-26) mg/dL Creatinine (0.72-1.25) mg/dL Est GFR ( Amer) (> 60) Est GFR (Non-Af Amer) (> 60) BUN/Creatinine Ratio (6-26) Glucose (70-99) mg/dL Calculated Osmolality (280-300) Lactic Acid (0.5-2.2) mmol/L Calcium (8.6-10.8) mg/dL Total Bilirubin (0.2-1.2) mg/dL Direct Bilirubin (0.0-0.5) mg/dL Indirect Bilirubin (0.0-1.2) mg/dL AST (5-34) Units/L ALT (0-55) Units/L Alkaline Phosphatase (38-126) Units/L Creatine Kinase (30-200) Units/L Troponin I (0-0.03) ng/mL Serum Total Protein (6.0-8.3) g/dL Albumin (3.5-5.0) g/dL Globulin (2.4-3.5) g/dL Albumin/Globulin Ratio (1.1-2.2) Urine Color (Yellow) Urine Clarity (Clear) Urine pH (5.0-8.0) pH Units Ur Specific [place] (1.010-1.025) Urine Protein (Neg-Trace) mg/dL Urine Glucose (UA) (Normal) mg/dL Urine Ketones (Negative) mg/dL Urine Blood (Negative) Urine Nitrite (Negative) Urine Bilirubin (Negative) Urine Urobilinogen (Normal) mg/dL Ur Leukocyte Esterase (Negative) Urine Microscopic RBC (0-3) per hpf Urine Microscopic WBC (0-3) per hpf Ur Squamous Epith Cells (None-Few) per lpf Urine Bacteria (None-Few) per hpf Hyaline Casts (None-Few) per lpf Urine Yeast (None Seen) per hpf Ur Culture Indicated? (NO) Stool Occult Blood (Negative) Urine Opiates Screen Positive H (Jbnvro=025) ng/mL Ur Barbiturates Screen Negative (Hqqjgd=717) ng/mL Ur Phencyclidine Scrn Negative (Cutoff=25) ng/mL Ur Amphetamines Screen Positive H (Byqbpq=4468) ng/mL U Benzodiazepines Scrn Negative (Bfazqa=887) ng/mL Urine Cocaine Screen Negative (Cutoff= 300) ng/mL U Marijuana (THC) Screen Negative (Cutoff = 50) ng/mL Ethyl Alcohol (0-10) mg/dL Blood Type Antibody Screen - Radiology Data Radiology results reviewed: Yes I reviewed the patient's radiology results. Chest X-Ray 01/07/17 09:41 IMPRESSION: 1. Right-sided PICC line. 2. Enlarged cardiac silhouette with patchy opacities throughout the lungs bilaterally. 3. Bilateral pleural effusions. D/ / Bladimir Gonsalez MD / Bladimir Gonsalez MD Interpreting Provider: Bladimir Gonsalez MD Head CT 01/07/17 09:42 IMPRESSION: 1. No convincing evidence of acute intracranial abnormality. 2. Global parenchymal volume loss with chronic microvascular ischemic change. 3. Atherosclerosis. 4. Right mastoid effusion. D/ / Bladimir Gonsalez MD / Bladimir Gonsalez MD Interpreting Provider: Bladimir Gonsalez MD - EKG Data EKG #1 EKG attestation: Yes I reviewed and interpreted this EKG. EKG results narrative: Normal sinus rhythm at a rate of 90. FL interval is 145. Restorationism is 111. QT is 386. QTC is 433. No signs of acute ischemia. No previous EKG to compare to. Attestation Statement - Attestation Attestation: I examined this patient and my medical decision-making was reviewed with the Resident Physician. I agree with the documented findings, disposition and treatment plan as described except to the extent set forth below. Patient to ED with altered mental status. Patient brought in by paramedics who picked him up from a [employer] truck. They provide the history as the patient is nonverbal. Family finally arrived and provided the history that he was recently at [facility] and newly diagnosed with head and neck cancer. On exam he is laying in the bed. Groaning. Lungs diminished. 3+ pitting edema in his legs. He is obese. No signs of trauma. Plan. ABG. Mental status workup. Head CT. Admission versus transfer. ABG shows a pH of 7.2 with a CO2 91. BiPAP trial. Patient worsened after trial of BiPAP. Family at bedside. As a brother and a sister here and a sister who is POA who is out of town. They have been in consultation with her on the phone. They want life-sustaining measures withdrawn. They do not want him intubated. They do not want pressors. They want him off the BiPAP. Comfort Care form was reviewed with them. They did have a consultation with the corrections nurse as well. Admitted to hospitalist service. 45 minutes of critical care exclusive of separately billable procedures.
[2017-01-07 10:07] LABS: Basophils % 0.2 %; Eosinophils # 0.1 K/mcL (0.0-0.6); Eosinophils % 0.6 %; Hematocrit 27.4 % (37.5-50.1); Lymphocytes # 1.1 K/mcL (0.6-4.6); Lymphocytes % 11.3 %; Mean Corpuscular HGB Conc 28.1 g/dL (31.6-35.5); Mean Corpuscular Hemoglobin 27.6 pg (28.0-33.3); Mean Corpuscular Volume 98.2 fL (83.0-100.0); Mean Platelet Volume 8.5 fL (9.4-12.4); Monocytes # 0.6 K/mcL (0.0-1.3); Monocytes % 6.7 %; Neutrophils # 7.5 K/mcL (1.6-8.9); Platelet Count 165 K/mcL (140-400); Red Blood Count 2.79 M/mcL (4.19-5.50); Red Cell Distribution Width 17.2 % (11.5-14.5); Segmented Neutrophils % 80.2 %
[2017-01-07 10:13] LABS: Alanine Aminotransferase 12 Units/L (0-55); Albumin/Globulin Ratio 0.3 (1.1-2.2); Alkaline Phosphatase 107 Units/L (38-126); Aspartate Amino Transferase 16 Units/L (5-34); BUN/Creatinine Ratio 13 (6-26); Bilirubin,Direct 0.2 mg/dL (0.0-0.5); Bilirubin,Indirect 0.2 mg/dL (0.0-1.2); Bilirubin,Total 0.4 mg/dL (0.2-1.2); Blood Urea Nitrogen 45 mg/dL (8-26); Calcium 8.4 mg/dL (8.6-10.8); Carbon Dioxide 33 mEq/L (19-29); Chloride 103 mEq/L (98-109); Creatine Kinase 16 Units/L (30-200); Globulin 4.8 g/dL (2.4-3.5); Glucose 218 mg/dL (70-99); Osmolality,Calculated 308 (280-300); Potassium 4.4 mEq/L (3.5-4.5); Sodium 140 mEq/L (136-145); Total Protein 6.4 g/dL (6.0-8.3); eGFR For African Americans 22 (> 60); eGFR For Non-African Americans 18 (> 60)
[2017-01-07 10:14] LABS: Albumin 1.6 g/dL (3.5-5.0); Ethanol < 10 mg/dL (0-10)
[2017-01-07 10:15] LABS: ABG Base Excess 7.2 mEq/L (-2.0 to 3.0); ABG HCO3 36.4 mEQ/L (21-27); ABG Oxygen Saturation 86 % (95-98); ABG PH 7.21 pH Units (7.32-7.45); ABG PO2 63 mmHg (85-104); ABG TCO2 39.2 mEq/L (20-26)
[2017-01-07 10:16] LABS: Hemoglobin 7.7 g/dL (12.9-16.9)
[2017-01-07 10:18] LABS: ABG PCO2 91 mmHg (35-45)
[2017-01-07 10:19] LABS: Blood Gas FiO2 60 %
[2017-01-07] MEDS ORDERED: Levofloxacin 500 MG/100 ML 500 MG/100 ML BAG IVPB ONE (10:22)
[2017-01-07] MEDS ORDERED: Piperacillin/Tazobactam 3.375 GM in D5% in Water (Mini-Bag+) 100 ML IVPB ONE (10:22)
[2017-01-07] MEDS ORDERED: Vancomycin 2,000 MG in D5% in Water 500 ML IVPB ONE (10:39)
[2017-01-07 10:54] LABS: Basophilic Stippling 1+ (Not Present); Hypochromasia Present (Not Present); Platelet Estimate Normal (Normal)
[2017-01-07 10:55] LABS: Anisocytosis 1+ (Not Present)
[2017-01-07] MEDS ORDERED: Vancomycin 2,000 MG in D5% in Water 250 ML IVPB SCH (11:00)
[2017-01-07] MEDS ORDERED: Norepinephrine 4 MG in D5% in Water 250 ML IVC SCH (11:00)
[2017-01-07 11:38] LABS: ABG HCO3 36.4 mEQ/L (21-27); ABG Oxygen Saturation 99 % (95-98); ABG PO2 188 mmHg (85-104); ABG TCO2 39.7 mEq/L (20-26)
[2017-01-07 11:41] LABS: ABG PCO2 107 mmHg (35-45); ABG PH 7.14 pH Units (7.32-7.45); Blood Gas FiO2 60 %
[2017-01-07 12:10] LABS: Bilirubin,Urine Negative (Negative); Blood,Urine Moderate (Negative); Clarity,Urine Cloudy (Clear); Color,Urine Yellow (Yellow); Glucose,Urine (UA) 100 mg/dL (Normal); Ketones,Urine Negative (Negative); Leukocyte Esterase,Urine Trace (Negative); Nitrite,Urine Negative (Negative); PH,Urine 5.5 pH Units (5.0-8.0); Protein,Urine Trace mg/dL (Neg-Trace); Specific Gravity,Urine 1.015 (1.010-1.025); Urobilinogen,Urine Normal (Normal)
[2017-01-07 12:14] LABS: Bacteria,Urine None Seen per hpf (None-Few); Hyaline Casts,Urine None Seen per lpf (None-Few); Squamous Epithelial Cell,Urine Many per lpf (None-Few)
[2017-01-07 12:17] LABS: Amphetamine Screen,Urine Positive ng/mL (Cutoff=1000); Barbiturate Screen,Urine Negative ng/mL (Cutoff=200); Benzodiazepines Screen,Urine Negative ng/mL (Cutoff=200); Cannabinoid Screen,Urine Negative ng/mL (Cutoff = 50); Cocaine Screen,Urine Negative ng/mL (Cutoff= 300); Opiate Screen,Urine Positive ng/mL (Cutoff=300); Phencyclidine Screen,Urine Negative ng/mL (Cutoff=25)
[2017-01-07 12:28] LABS: RBC,Urine 15-30 per hpf (0-3); Yeast,Urine Many per hpf (None Seen)
--- NOTE | 2017-01-07 12:31 | Pulmonology Consult Note ---
<Luis Palma - Last Filed: 01/07/17 16:49> Date of Encounter: 01/07/17 Time of Encounter: 12:30 Assessment and Plan (1) Hypercapnic respiratory failure Current Visit: Yes Status: Acute This patient is an hypercapnic respiratory failure and the arterial blood gas reveals a respiratory acidosis. The patient was placed on BiPAP in the emergency department and the respiratory acidosis did not improve. The option of intubation was offered to the family, as this is medically necessary. The patient has a DO NOT RESUSCITATE order and the family states that the patient would not have wanted to be intubated. We discussed the option of palliative care, and the family believes that this is the best measure due to all of his existing comorbidities and recent diagnosis of neck cancer. We also discussed whether or not to continue the Levophed drip, and the family states that they want to withdraw this measure as well. At this time, we will follow the patient's and family's wishes and discontinue life-saving measures. This patient will be placed in palliative care. (2) Hypoxic episode Current Visit: Yes Status: Acute See above (3) Hypotension Current Visit: Yes Status: Acute See above (4) Anemia Current Visit: Yes Status: Acute See above (5) History of cancer Current Visit: Yes Status: Acute See above (6) Bacteremia due to Gram-positive bacteria Current Visit: No Status: Acute See above (7) CKD (chronic kidney disease) stage 3, GFR 30-59 ml/min Current Visit: No Status: Acute See above (8) Morbid (severe) obesity with alveolar hypoventilation Current Visit: Yes Status: Acute See above History of Present Illness Consult date: 01/07/17 Requesting physician: Susanne Francois Reason for consult: hypoxemia Chief complaint: Unresponsive History of present illness: This is a 71-year-old male with a past medical history of type 2 diabetes mellitus, chronic kidney disease stage III, morbid obesity, recent diagnosed neck mass, left knee surgery, recent septic arthritis of left knee due to MRSA. This gentleman presented to the emergency department today via EMS after being found unresponsive at his extended care facility. Family states that his last known well was last night and he was talking with everyone and acting at his baseline. Pulmonology was consulted today regarding his care due to worsening ABG and failure to improve on BiPAP. He is a DNR, and we discussed possible intubation with the family as this had not been previously discussed before today's visit.. The family stated that the patient would not want intubation. Also, he was severely hypotensive. He was placed on a Levophed drip at 8 micrograms per minute. The family also stated that they wanted to withdraw the levophed drip. I cannot obtain any history from the patient due to his change in mental status. Past Med Surg Social Fam HX - Past Medical History Medical history: diabetes, hyperlipidemia, hypertension, renal disease Psychiatric history: no psych history - Past Surgical History Surgical History: other (Ping's gangrene I & D, Right foot toe amputation) - Social History Smoking Status: Never smoker Smokeless Tobacco Status: No Alcohol use: none Drug use: none - Family History Mother Living Status: Hx Family Endocrine Disorder: Yes (diabetes) Medications and Allergies Aspirin Enteric Coated [Aspirin EC] 81 mg PO DAILY 11/21/16 [History] Atorvastatin Calcium [Lipitor] 20 mg PO HS 11/21/16 [History] Cholecalciferol (D-3) [Vitamin D] 2,000 unit PO DAILY 11/21/16 [History] Gabapentin [Neurontin] 600 mg PO TID 11/21/16 [History] Glimepiride [Amaryl] 4 mg PO BID 11/21/16 [History] Insulin DETEMIR [Levemir] 20 unit SQ HS 11/21/16 [History] Multivitamin [Multi-Day Vitamins] 1 tab PO DAILY 11/21/16 [History] Nystatin POWDER [Nystop] 1 appl TP TID 11/21/16 [History] Omeprazole [PriLOSEC] 20 mg PO DAILY 11/21/16 [History] Oxycodone HCl [Roxicodone 30 MG Immed Release] 30 mg PO Q6HR PRN 11/21/16 [ History] Potassium Chloride [K-Tab ER] 20 meq PO DAILY 11/21/16 [History] Sertraline [Zoloft] 100 mg PO DAILY 11/21/16 [History] amLODIPine [Norvasc] 5 mg PO DAILY 11/21/16 [History] hydroCHLOROthiazide [Hydrochlorothiazide] 12.5 mg PO DAILY 11/21/16 [History] Insulin LISPRO [HumaLOG] 0 units SQ TIDAC vial 11/30/16 [Rx] Insulin LISPRO [HumaLOG] 6 units SQ TIDWM vial 11/30/16 [Rx] Miconazole w/zinc oxide&karaya [Antifungal Extra Thick] 1 appl TP TID tube [Rx] Allergies morphine Allergy (Verified 11/21/16 16:26) Hallucinating All Systems: A 10-system review of systems was performed and is negative for pertinent findings except as documented above in the HPI. Physical Examination Vital Signs: Vital Signs, Last 4 Hours Pulse Resp BP Pulse Ox 01/07/17 11:50 86 11 117/68 50 General appearance: comatose Eyes: other (Pupils are reactive bilaterally) ENT: oropharynx dry Cardiovascular: regular rate and rhythm Gastrointestinal: soft pupils equal and round, unable to assess due to mental status Chest X-Ray 01/07/17 09:41 IMPRESSION: 1. Right-sided PICC line. 2. Enlarged cardiac silhouette with patchy opacities throughout the lungs bilaterally. 3. Bilateral pleural effusions. D/ / Bladimir Gonsalez MD / Bladimir Gonsalez MD Interpreting Provider: Bladimir Gonsalez MD Head CT 01/07/17 09:42 IMPRESSION: 1. No convincing evidence of acute intracranial abnormality. 2. Global parenchymal volume loss with chronic microvascular ischemic change. 3. Atherosclerosis. 4. Right mastoid effusion. D/ / Bladimir Gonsalez MD / Bladimir Gonsalez MD Interpreting Provider: Bladimir Gonsalez MD Vital Signs Temperature 95.8 F L 01/07/17 09:40 Pulse Rate 89 01/07/17 09:40 Respiratory Rate 12 01/07/17 09:40 Blood Pressure 76/33 01/07/17 09:40 O2 Sat by Pulse Oximetry 100 01/07/17 09:40 Temperature 95.8 F L 01/07/17 09:40 Pulse Rate 86 01/07/17 11:50 Respiratory Rate 11 01/07/17 11:50 Blood Pressure 117/68 01/07/17 11:50 O2 Sat by Pulse Oximetry 50 01/07/17 11:50 Oxygen Delivery Oxygen Delivery Bipap Results - Laboratory Findings CBC and BMP: 01/07/17 09:45 01/07/17 09:45 ABG ABG pH 7.14 pH Units (7.32-7.45) L* 01/07/17 11:30 ABG pCO2 107 mmHg (35-45) H* 01/07/17 11:30 ABG pO2 188 mmHg (85-104) H 01/07/17 11:30 ABG O2 Saturation 99 % (95-98) H 01/07/17 11:30 Abnormal lab findings: Abnormal lab results RBC 2.79 M/mcL (4.19-5.50) L 01/07/17 09:45 Hgb 7.7 g/dL (12.9-16.9) L 01/07/17 09:45 Hct 27.4 % (37.5-50.1) L 01/07/17 09:45 MCH 27.6 pg (28.0-33.3) L 01/07/17 09:45 MCHC 28.1 g/dL (31.6-35.5) L 01/07/17 09:45 RDW 17.2 % (11.5-14.5) H 01/07/17 09:45 MPV 8.5 fL (9.4-12.4) L 01/07/17 09:45 Hypochromasia Present (Not Present) A 01/07/17 09:45 Basophilic Stippling 1+ (Not Present) A 01/07/17 09:45 Anisocytosis 1+ (Not Present) A 01/07/17 09:45 ABG pH 7.14 pH Units (7.32-7.45) L* 01/07/17 11:30 ABG pCO2 107 mmHg (35-45) H* 01/07/17 11:30 ABG pO2 188 mmHg (85-104) H 01/07/17 11:30 ABG HCO3 36.4 mEQ/L (21-27) H 01/07/17 11:30 ABG Total CO2 39.7 mEq/L (20-26) H 01/07/17 11:30 ABG O2 Saturation 99 % (95-98) H 01/07/17 11:30 ABG Base Excess 6.0 mEq/L (-2.0 to 3.0) H 01/07/17 11:30 Carbon Dioxide 33 mEq/L (19-29) H 01/07/17 09:45 BUN 45 mg/dL (8-26) H 01/07/17 09:45 Creatinine 3.40 mg/dL (0.72-1.25) H 01/07/17 09:45 Est GFR ( Amer) 22 (> 60) L 01/07/17 09:45 Est GFR (Non-Af Amer) 18 (> 60) L 01/07/17 09:45 Glucose 218 mg/dL (70-99) H 01/07/17 09:45 Calculated Osmolality 308 (280-300) H 01/07/17 09:45 Calcium 8.4 mg/dL (8.6-10.8) L 01/07/17 09:45 Creatine Kinase 16 Units/L (30-200) L 01/07/17 09:45 Troponin I 0.04 ng/mL (0-0.03) H* 01/07/17 09:45 Albumin 1.6 g/dL (3.5-5.0) L 01/07/17 09:45 Globulin 4.8 g/dL (2.4-3.5) H 01/07/17 09:45 Albumin/Globulin Ratio 0.3 (1.1-2.2) L 01/07/17 09:45 Urine Clarity Cloudy (Clear) A 01/07/17 11:57 Urine Glucose (UA) 100 mg/dL (Normal) H 01/07/17 11:57 Urine Blood Moderate (Negative) H 01/07/17 11:57 Ur Leukocyte Esterase Trace (Negative) H 01/07/17 11:57 Urine Microscopic RBC 15-30 per hpf (0-3) H 01/07/17 11:57 Urine Microscopic WBC 5-15 per hpf (0-3) H 01/07/17 11:57 Ur Squamous Epith Cells Many per lpf (None-Few) H 01/07/17 11:57 Urine Yeast Many per hpf (None Seen) H 01/07/17 11:57 Ur Culture Indicated? YES (NO) A 01/07/17 11:57 - Diagnostic Findings Chest x-ray: report reviewed, image reviewed Consult Discharge Plan - Plan Referrals: NONE,PCP [Primary Care Provider] - <Eddie Gannon M - Last Filed: 01/07/17 17:03> Date of Encounter: 01/07/17 All Systems: A 10-system review of systems was performed and is negative for pertinent findings except as documented above in the HPI. Physical Examination Vital Signs: Vital Signs, Last 4 Hours Pulse Resp BP Pulse Ox 01/07/17 15:49 11 94/37 01/07/17 13:02 89 11 126/54 100 Results - Laboratory Findings CBC and BMP: 01/07/17 09:45 01/07/17 09:45 ABG ABG pH 7.14 pH Units (7.32-7.45) L* 01/07/17 11:30 ABG pCO2 107 mmHg (35-45) H* 01/07/17 11:30 ABG pO2 188 mmHg (85-104) H 01/07/17 11:30 ABG O2 Saturation 99 % (95-98) H 01/07/17 11:30 Abnormal lab findings: Abnormal lab results RBC 2.79 M/mcL (4.19-5.50) L 01/07/17 09:45 Hgb 7.7 g/dL (12.9-16.9) L 01/07/17 09:45 Hct 27.4 % (37.5-50.1) L 01/07/17 09:45 MCH 27.6 pg (28.0-33.3) L 01/07/17 09:45 MCHC 28.1 g/dL (31.6-35.5) L 01/07/17 09:45 RDW 17.2 % (11.5-14.5) H 01/07/17 09:45 MPV 8.5 fL (9.4-12.4) L 01/07/17 09:45 Hypochromasia Present (Not Present) A 01/07/17 09:45 Basophilic Stippling 1+ (Not Present) A 01/07/17 09:45 Anisocytosis 1+ (Not Present) A 01/07/17 09:45 ABG pH 7.14 pH Units (7.32-7.45) L* 01/07/17 11:30 ABG pCO2 107 mmHg (35-45) H* 01/07/17 11:30 ABG pO2 188 mmHg (85-104) H 01/07/17 11:30 ABG HCO3 36.4 mEQ/L (21-27) H 01/07/17 11:30 ABG Total CO2 39.7 mEq/L (20-26) H 01/07/17 11:30 ABG O2 Saturation 99 % (95-98) H 01/07/17 11:30 ABG Base Excess 6.0 mEq/L (-2.0 to 3.0) H 01/07/17 11:30 Carbon Dioxide 33 mEq/L (19-29) H 01/07/17 09:45 BUN 45 mg/dL (8-26) H 01/07/17 09:45 Creatinine 3.40 mg/dL (0.72-1.25) H 01/07/17 09:45 Est GFR ( Amer) 22 (> 60) L 01/07/17 09:45 Est GFR (Non-Af Amer) 18 (> 60) L 01/07/17 09:45 Glucose 218 mg/dL (70-99) H 01/07/17 09:45 Calculated Osmolality 308 (280-300) H 01/07/17 09:45 Calcium 8.4 mg/dL (8.6-10.8) L 01/07/17 09:45 Creatine Kinase 16 Units/L (30-200) L 01/07/17 09:45 Troponin I 0.04 ng/mL (0-0.03) H* 01/07/17 09:45 Albumin 1.6 g/dL (3.5-5.0) L 01/07/17 09:45 Globulin 4.8 g/dL (2.4-3.5) H 01/07/17 09:45 Albumin/Globulin Ratio 0.3 (1.1-2.2) L 01/07/17 09:45 Urine Clarity Cloudy (Clear) A 01/07/17 11:57 Urine Glucose (UA) 100 mg/dL (Normal) H 01/07/17 11:57 Urine Blood Moderate (Negative) H 01/07/17 11:57 Ur Leukocyte Esterase Trace (Negative) H 01/07/17 11:57 Urine Microscopic RBC 15-30 per hpf (0-3) H 01/07/17 11:57 Urine Microscopic WBC 5-15 per hpf (0-3) H 01/07/17 11:57 Ur Squamous Epith Cells Many per lpf (None-Few) H 01/07/17 11:57 Urine Yeast Many per hpf (None Seen) H 01/07/17 11:57 Ur Culture Indicated? YES (NO) A 01/07/17 11:57 Urine Opiates Screen Positive ng/mL (Ykvxjy=[id number]) H 01/07/17 11:57 Ur Amphetamines Screen Positive ng/mL (Ynnehy=[id number]) H 01/07/17 11:57 - Clinical Findings Intake & Output: Intake & Output 01/07/17 01/07/17 01/07/17 07:59 15:59 23:59 Intake Total 1700 / 1700 Balance 1700 / 1700 - Attending Attestation I examined this patient and my medical decision-making was reviewed with the Resident Physician. I agree with the documented findings, disposition and treatment plan as described except to the extent set forth below. Patient seen and examined. Labs, radiology, chart personally reviewed. Agree with resident's history and physical, assessment, plan with following comments: MANAGER INTEGRITY: Patient does not follows commands, Pulmonary: Acceptable oxygenation and ventilation ideally patient needs to be on invasive mechanical ventilation, however patient CODE STATUS is only comfort care. Patient with acute hypoxic and hypercapnic respiratory failure. Cardiovascular: unstable GI: She with diagnosis of liver cirrhosis which could be playing a major role for his acute illness. Heme: DVT prophylaxis per routine ID: Continue antibiotics and plan to de-escalation patient is in shock and source is not clear. Renal; urine out put and renal funtion reviewed I was called by the ED physician to admit patient to ICU, when I went to emergency room family has decided on the for comfort care which seems to be reasonable and palliative care to assist patient. Thank you very much for consultation.
[2017-01-07] MEDS ORDERED: Ondansetron 4 MG/2 ML VIAL IVP PRN (14:13)
[2017-01-07] MEDS ORDERED: Naloxone 0.4 MG/ML INJ IVP PRN (14:13)
[2017-01-07] MEDS ORDERED: *HR* LORazepam 2 MG/ML VIAL IVP PRN (14:16)
[2017-01-07] MEDS: *HR* FentaNYL (PF) 100 MCG/2 ML VIAL IVP SCH ×2 (16:00→16:34)
--- NOTE | 2017-01-07 16:21 | Internal Med History&Physical ---
Date of Encounter: 01/07/17 Time of Encounter: 13:30 Assessment and Plan (1) Acute respiratory failure with hypoxia and hypercapnia Current visit: Yes Status: Acute Will admit the pt into Med Surg for comfort care I did reviewe pt's labs and imaging findings also reviewed [employer] evaluation Over all very poor prognosis with all the comorbidites Spoke to pt's sister and brother ( POA ), recommend for comfort care only by the time I saw the pt , he was already off the BiPAP and Vasopressors as at this point will give him Ativan IV PRN for anxiety / respiratory distress since he is allergic to Morphine will give him Fentanyl IV PRN for respiratory distress and Pain Also talked to palliative care team, who is going to see him soon (2) Shock Current visit: Yes Status: Acute multi factorial - possible sepsis / cardiac and respiratory failure too (3) Pneumonia Current visit: Yes Status: Acute Qualifiers: Qualified Code(s): J18.9 - Pneumonia, unspecified organism (4) Elevated troponin Current visit: Yes Status: Acute (5) Acute on chronic kidney failure Current visit: No Status: Acute Qualifiers: Qualified Code(s): N17.9 - Acute kidney failure, unspecified; N18.3 - Chronic kidney disease, stage 3 (moderate) (6) Morbid obesity with BMI of 45.0-49.9, adult Current visit: No Status: Chronic (7) CKD (chronic kidney disease), stage III Current visit: No Status: Chronic (8) Diabetes mellitus type 2 in obese Current visit: No Status: Acute Internal Medicine - H&P: HPI Chief complaint: AMS / Obtunded Admitted From: Emergency Dept Plans for Post Hospital Care: Hospice - Medical Facility History of present illness: Mr. Arceo is a 71 year old male with known PMH of hypertension, diabetes type II, COPD, chronic hypoxic respiratory failure, morbid obesity, CKD-3 who recently diagnosed with neck mass also had recent septic arthritis of the left knee with MRSA was at [facility] for almost one month and transferred to extended care facility here. Now he was brought into the ER by EMS stating that since this morning patient was severely obtunded and unresponsive. As per last night he was alert, awake and talking normally. After coming to the ER he found to be in severe hypoxic and hypercapneic respiratory failure with severe respiratory acidosis. He was placed on BiPAP initially. His family stated he does not wanted to be in vent so requested for DNR / DNI and comfort measures only. Pt was also in severe hypotension / shock , required vasopressors. Family also requested to take him off the vasopressors. They requested for comfort care / palliative care as per patient wishes in the past. So the ER asked hospitalist team to admit under our service, and consult palliative care team. When I examined the pt he was completely unresponsive, I did not get any information from him. All the information I mentioned above was from ER records and family members. Past Med Surg Social Fam HX - Past Medical History Medical history: diabetes, hyperlipidemia, hypertension, renal disease Psychiatric history: no psych history - Past Surgical History Surgical History: other (Ping's gangrene I & D, Right foot toe amputation) - Social History Smoking Status: Never smoker Smokeless Tobacco Status: No Alcohol use: none Drug use: none - Family History Mother Living Status: Hx Family Endocrine Disorder: Yes (diabetes) Internal Medicine - H&P: Meds Aspirin Enteric Coated [Aspirin EC] 81 mg PO DAILY 11/21/16 [History] Atorvastatin Calcium [Lipitor] 20 mg PO HS 11/21/16 [History] Cholecalciferol (D-3) [Vitamin D] 2,000 unit PO DAILY 11/21/16 [History] Gabapentin [Neurontin] 600 mg PO TID 11/21/16 [History] Glimepiride [Amaryl] 4 mg PO BID 11/21/16 [History] Insulin DETEMIR [Levemir] 20 unit SQ HS 11/21/16 [History] Multivitamin [Multi-Day Vitamins] 1 tab PO DAILY 11/21/16 [History] Nystatin POWDER [Nystop] 1 appl TP TID 11/21/16 [History] Omeprazole [PriLOSEC] 20 mg PO DAILY 11/21/16 [History] Oxycodone HCl [Roxicodone 30 MG Immed Release] 30 mg PO Q6HR PRN 11/21/16 [ History] Potassium Chloride [K-Tab ER] 20 meq PO DAILY 11/21/16 [History] Sertraline [Zoloft] 100 mg PO DAILY 11/21/16 [History] amLODIPine [Norvasc] 5 mg PO DAILY 11/21/16 [History] hydroCHLOROthiazide [Hydrochlorothiazide] 12.5 mg PO DAILY 11/21/16 [History] Insulin LISPRO [HumaLOG] 0 units SQ TIDAC vial 11/30/16 [Rx] Insulin LISPRO [HumaLOG] 6 units SQ TIDWM vial 11/30/16 [Rx] Miconazole w/zinc oxide&karaya [Antifungal Extra Thick] 1 appl TP TID tube [Rx] Allergies morphine Allergy (Verified 11/21/16 16:26) Hallucinating All Systems PM: A 10-system review of systems was performed and is negative for pertinent findings except as documented above in the HPI. Review of systems: Unable to perform thorough review of systems due to patients unresponsiveness. However, tried to review most of the systems, everything is benign except the systems and symptoms I mentioned in the history of present illness - Constitutional Vitals: Temp Pulse Resp BP Pulse Ox 95.8 F L 89 11 94/37 100 01/07/17 09:40 01/07/17 13:02 01/07/17 15:49 01/07/17 15:49 01/07/17 13:02 General appearance: Present: obese Exam: Unresponsive / severely obtunded - Head Head exam: Present: atraumatic, normal inspection - Neck Neck exam general surgery: Present: lymphadenopathy - Respiratory Respiratory exam: Present: decreased breath sounds, respiratory distress, wheezes, tachypnea. Absent: rhonchi - Cardiovascular Cardiovascular exam: Present: RRR, +S1, +S2 - GI/Abdominal GI/Abdominal exam: Present: distended, normal bowel sounds, soft. Absent: rebound, rigid - Extremities Exam Extremities exam: Present: pedal edema (3 + pititng edema in both legs) Additional comments: cold and clammy extremeties - Neurological Exam Additional comments: unable to assess due to unresponsiveness - Psychiatric Additional comments: unable to assesss Internal Med - H&P Results - Labs CBC & Chem 7: 01/07/17 09:45 01/07/17 09:45 Labs: Urine 01/07/17 Range/Units 11:57 Urine Color Yellow (Yellow) Urine Clarity Cloudy A (Clear) Urine pH 5.5 (5.0-8.0) pH Units Ur Specific [place] 1.015 (1.010-1.025) Urine Protein Trace (Neg-Trace) mg/dL Urine Glucose (UA) 100 H (Normal) mg/dL - ABG Interpretation Interpretation: ABG interpreted by me Interpretation: respiratory acidosis - Diagnostic Studies Chest x-ray Status: image reviewed by me (Multiple patchy infiltrates , increased vascular congestion)
--- NOTE | 2017-01-07 16:39 | Palliative - Consult Note ---
Date of Encounter: 01/07/17 Time of Encounter: 16:36 - Assessment and Plan (1) Goals of care, counseling/discussion Current Visit: Yes Status: Acute Assessment and plan: Goals of care discussion with the patient's sister, Joyce Bailey, and niece -Gabrielle. At this time, goal of care is to provide comfort and support. Patient's family is aware of physical exam, the plan of care, and plan for comfort. Palliative Care team will continue to follow. (2) Dyspnea Current Visit: Yes Status: Acute Assessment and plan: Prior adverse reaction to morphine causing hallucinations. Utilize fentanyl 50 g every hour as needed for dyspnea. Titrate for comfort. Supplemental oxygen, position for comfort. Qualifiers: Dyspnea type: unspecified Qualified Code(s): R06.00 - Dyspnea, unspecified (3) Acute respiratory failure with hypoxia and hypercapnia Current Visit: Yes Status: Acute Palliative-CN HPI - Data of Consult Patient: new to practice Consult date: 01/07/17 Requesting Physician: Anand Mcgill MD Primary Care Provider: PCP NONE - Consult Narrative Palliative Care/Comfort Measures: Palliative care Reason for consult: Goals of care, symptom managment History of present illness: Mr. Arceo is a 71 year old male patient presenting to [facility] emergency department unresponsive. Information is gathered from the medical record and family. Mr. Arceo is a current resident at [facility]. Mr. Arceo has had extensive hospitalizations recently due to orthopedic surgery, sepsis, and recently discovered head neck mass. Evaluation in the emergency department revealed severe hypoxic and hypercapnic respiratory failure with severe respiratory acidosis. His condition continued to decline. He became hypotensive requiring supportive vasopressors. After a meeting with the patient's next of kin/family, it was discovered that the patient had expressed prior to wishes to not be placed on mechanical ventilation or have life-support measures. The palliative care team was consulted to assist with goals of care and symptom management and end-of-life. CC: Anand Mcgill MD Past Med Surg Social Fam HX - Past Medical History Source: old records reviewed, obtained from family Medical history: diabetes, hyperlipidemia, hypertension, renal disease Psychiatric history: no psych history - Past Surgical History Surgical History: other (Ping's gangrene I & D, Right foot toe amputation) - Social History Smoking Status: Never smoker Smokeless Tobacco Status: No Alcohol use: none Drug use: none Current living situation: ECF - Family History Mother Living Status: Hx Family Endocrine Disorder: Yes (diabetes) Medications and Allergies Aspirin Enteric Coated [Aspirin EC] 81 mg PO DAILY 11/21/16 [History] Atorvastatin Calcium [Lipitor] 20 mg PO HS 11/21/16 [History] Cholecalciferol (D-3) [Vitamin D] 2,000 unit PO DAILY 11/21/16 [History] Gabapentin [Neurontin] 600 mg PO TID 11/21/16 [History] Glimepiride [Amaryl] 4 mg PO BID 11/21/16 [History] Insulin DETEMIR [Levemir] 20 unit SQ HS 11/21/16 [History] Multivitamin [Multi-Day Vitamins] 1 tab PO DAILY 11/21/16 [History] Nystatin POWDER [Nystop] 1 appl TP TID 11/21/16 [History] Omeprazole [PriLOSEC] 20 mg PO DAILY 11/21/16 [History] Oxycodone HCl [Roxicodone 30 MG Immed Release] 30 mg PO Q6HR PRN 11/21/16 [ History] Potassium Chloride [K-Tab ER] 20 meq PO DAILY 11/21/16 [History] Sertraline [Zoloft] 100 mg PO DAILY 11/21/16 [History] amLODIPine [Norvasc] 5 mg PO DAILY 11/21/16 [History] hydroCHLOROthiazide [Hydrochlorothiazide] 12.5 mg PO DAILY 11/21/16 [History] Insulin LISPRO [HumaLOG] 0 units SQ TIDAC vial 11/30/16 [Rx] Insulin LISPRO [HumaLOG] 6 units SQ TIDWM vial 11/30/16 [Rx] Miconazole w/zinc oxide&karaya [Antifungal Extra Thick] 1 appl TP TID tube [Rx] Allergies morphine Allergy (Verified 11/21/16 16:26) Hallucinating ROS unobtainable: due to mental status Palliative Care-Exam - Constitutional Vitals: Temp Pulse Resp BP Pulse Ox 95.8 F L 89 11 94/37 100 01/07/17 09:40 01/07/17 13:02 01/07/17 15:49 01/07/17 15:49 01/07/17 13:02 Exam: 71-year-old male patient, morbidly obese, unresponsive - Head Head Exam: Present: atraumatic - Eye Eye exam: Present: EOMI - ENT ENT exam: Present: mucous membranes dry - Respiratory Respiratory exam: Present: rhonchi (Throughout anterior lung saravia). Absent: respiratory distress Additional comments: Respirations shallow and irregular with periods of apnea - Cardiovascular Cardiovascular exam: Present: irregular rhythm. Absent: diastolic murmur, systolic murmur - GI/Abdominal Exam GI/Abdominal exam: Present: soft. Absent: tenderness - Rectal Rectal Exam: Present: deferred - Catheter Type: Urethral (Elizalde) - Extremities Exam Additional comments: Hyperpigmentation of lower extremities. Dressing intact to left knee - Neurological Exam Neurological exam: Absent: alert - Skin Additional comments: Skin tear present of the left upper extremity, and right-sided abdominal skin fold Internal Medicine - CN: Reslt - Labs CBC & Chem 7: 01/07/17 09:45 01/07/17 09:45 Labs: Urine 01/07/17 Range/Units 11:57 Urine Color Yellow (Yellow) Urine Clarity Cloudy A (Clear) Urine pH 5.5 (5.0-8.0) pH Units Ur Specific [place] 1.015 (1.010-1.025) Urine Protein Trace (Neg-Trace) mg/dL Urine Glucose (UA) 100 H (Normal) mg/dL - ABG Interpretation ABG results: ABG ABG pH 7.14 pH Units (7.32-7.45) L* 01/07/17 11:30 ABG pCO2 107 mmHg (35-45) H* 01/07/17 11:30 ABG pO2 188 mmHg (85-104) H 01/07/17 11:30 ABG O2 Saturation 99 % (95-98) H 01/07/17 11:30 Consult Discharge Plan - Plan Referrals: NONE,PCP [Primary Care Provider] - Palliative Quality Palliative Quality: Screen for Code Status: Yes, Screen for Goals of Care: Yes, Screen for Pain: Yes, If Pain Regimen Started, Initiate Bowel Regimen: Yes, Screen for Nausea/Vomitting: Yes Code Status: 01/07/17 14:13 Resuscitation Status: Active [RES] Routine Comment: Resuscitation Status: DNR-Comfort Care
[2017-01-07] MEDS ORDERED: *HR* FentaNYL (PF) 100 MCG/2 ML VIAL IVP PRN (16:40)
[2017-01-07 17:13] VITALS: BP 39/27
--- NOTE | 2017-01-08 01:54 | Death Note ---
Discharge Sum: Summary - Date and Time Date of admission: 01/07/17 17:06 Date of : 01/08/17 Time of : 00:55 - Summary Details: 71 y/o male was brought to ER by EMS after he was found to be unresponsive. The night before patient was awake, alert and conversing. He was found to be in acute hypoxic, hypercapnic respiratory failure with severe respiratory acidosis. He was initially treated with BIPAP and on admission was DNR/DNI due to his wishes which were known by family. Furthermore, he initially was in hypotension and started on vasopressors which family request be stopped. Comfort measures were taken and patient was put on ativan and fentanyl. Early this morning at 0055 family notified nursing staff that patient had stopped breathing. Two nurses confirmed patient did not have respirations and heart sounds. Nursing staff notified Dr. Garnica as well. - Additional Data Confirmation of as documented by pronouncing clinician: no respirations, no heart sounds Family: at bedside Attending/PCP notified?: Yes Attending physician: Anand Mcgill MD Was code activated?: No Autopsy requested?: No plan examiner notified?: Yes Organ bank notified?: Yes Discharge Sum: Diag - PCOD Probable Cause of : Septic shock Discharge Sum: Prov - Provider Primary care physician: PCP NONE Admitting clinician: Anand Mcgill Consults: 01/07/17 17:25 Consult to Pastoral Services [CONS] Routine Comment: Pronouncing clinician: Regulo Garnica
--- NOTE | 2017-01-08 15:07 | Electrocardiograph Report ---
[place] [id number] Test Date: 2017-01-07 Pat Name: Ashvin Arceo Department: 103 Room: 2A44 Gender: M Nurse Prn: [facility] : 1945 Requested By: Paty Esqueda Order Number: [id number] Reading MD: Giselle Gamble Measurements Intervals [place] Rate: 90 P: 20 [place]: 145 QRS: 48 QRSD: 111 T: 28 QT: 386 QTc: 433 Interpretive Statements SINUS RHYTHM INCOMPLETE RIGHT BUNDLE BRANCH BLOCK NONSPECIFIC ST & T-WAVE ABNORMALITY Electronically Signed On 01-08-2017 15:05:59 EDT by Giselle Gamble
== END 2017-01-08 03:00 | disposition expired | DRG 871 ==
LOC: EMEROO 09:37 → ICNU 09:37 → 2ANU 14:09 → SUATTDRO 17:06
PROVIDERS: ADMIT Family Medicine; ATTEND Family Medicine